=== PATIENT | male | born 1980 | race Caucasian/White ===

== ENCOUNTER 2017-10-28 14:15 | Emergency (ER) | payer MEDICARE, MEDICAID ==
[~2017-10-28] VITALS: Ht 180.3 cm; Wt 106.0 kg
[~2017-10-28 14:15] MED LIST: ARIP5TAB4 PO; CARB200T2 PO; DIVA-81 PO; DIVA500T9 PO; ESCI5TAB PO; GABA-532 PO; GEMF600T4 PO; LACO100T2 PO; LAMO25TA94 PO; LISI40TA4 PO; MIN5C PO; PANT-47 PO; SUMA50TA PO
[2017-10-28] MEDS ORDERED: normal saline 1000ML IV soln IVB ONE ×2 (14:20→15:00)
[2017-10-28] MEDS ORDERED: LORazepam 2 mg/ml vial IV ONE (14:20)
[2017-10-28 14:59] LABS: ALBUMIN 3.8 G/DL (3.4-5.0); ALKALINE PHOSPHATASE 109 IU/L (46-116); BILIRUBIN,TOTAL 0.6 MG/DL (0.1-1.0); BLOOD UREA NITROGEN 22 MG/DL (7-18); BUN/CREATININE RATIO 12.5 (5.4-32.0); CALCIUM 8.4 MG/DL (8.5-10.1); CARBAMAZEPINE (TEGRETOL) 1.6 UG/ML (4.0-12.0); CREATININE 1.76 MG/DL (0.60-1.10); ETHANOL < 0.010 GM/DL (0.0-0.010); TOTAL CARBON DIOXIDE 20.1 MMOL/L (24-32); VALPROATE 37 UG/ML (50-100); eGFR 43 ML/MIN
[2017-10-28] MEDS ORDERED: insulin regular, human 10 units/0.1 ml syringe IV ONE ×2 (15:00→15:45)
[2017-10-28 15:10] LABS: ALBUMIN/GLOBULIN RATIO 1.1 (1.1-1.5); POTASSIUM 3.9 MMOL/L (3.5-5.1); TOTAL PROTEIN 7.3 G/DL (6.4-8.2)
[2017-10-28 15:12] LABS: ANION GAP 15 (8-16); CHLORIDE 87 MMOL/L (99-107); SODIUM 122 MMOL/L (135-145)
[2017-10-28 15:13] LABS: BASOPHILS % (AUTO) 0.3 % (0-1); EOSINOPHILS % (AUTO) 0.8 % (0-6); GLUCOSE 758 MG/DL (70-104); HEMATOCRIT 38.1 % (42.0-52.0); HEMOGLOBIN 13.6 g/dl (14.0-17.9); MEAN CORPUSCULAR HEMOGLOBIN 32.4 PG (27.0-31.0); MEAN CORPUSCULAR HGB CONC 35.6 % (33.0-36.5); MEAN CORPUSCULAR VOLUME 90.8 FL (78-98); MEAN PLATELET VOLUME 11.4 FL (7.4-10.4); MONOCYTES # (AUTO) 0.3 X10'3 (0-0.9); MONOCYTES % (AUTO) 9.2 % (2-12); NEUTROPHILS % (AUTO) 60.7 % (42-75); PLATELET COUNT 184 X10'3 (140-440); WHITE BLOOD COUNT 3.3 X10'3 (4.5-11.0)
[2017-10-28 15:15] VITALS: BP 141/64
[2017-10-28 15:27] LABS: URINE AMPHETAMINE SCREEN NEGATIVE (Neg); URINE BARBITUATE SCREEN NEGATIVE (Neg); URINE BENZODIAZEPINES SCREEN NEGATIVE (Neg); URINE CANNABINOID SCREEN NEGATIVE (Neg); URINE COCAINE SCREEN NEGATIVE (Neg); URINE METHADONE SCREEN NEGATIVE (Neg); URINE OPIATE SCREEN NEGATIVE (Neg); URINE PHENCYCLIDINE SCREEN NEGATIVE (Neg)
[2017-10-28 15:47] LABS: ALANINE AMINOTRANSFERASE 22 U/L (12-78); ASPARTATE AMINO TRANSFERASE 15 U/L (10-37)
[2017-10-28] MEDS ORDERED: METF500T PO (16:49)
== END 2017-10-28 17:50 | disposition home or self-care (01) ==
LOC: ER 14:15
DX: G40.909 Epilepsy, unspecified, not intractable, without status epilepticus (principal); G89.29 Other chronic pain; E11.9 Type 2 diabetes mellitus without complications; F12.90 Cannabis use, unspecified, uncomplicated; Z90.49 Acquired absence of other specified parts of digestive tract; Z98.890 Other specified postprocedural states; Z88.8 Allergy status to other drugs, medicaments and biological substances; Z88.5 Allergy status to narcotic agent; Z79.84 Long term (current) use of oral hypoglycemic drugs; Z79.899 Other long term (current) drug therapy
CPT/HCPCS: 36415; 71045; 80053; 80156; 80164; 80305; 80320; 82948; 85025; 96374; 96375; 96376; 99285; J1815; J2060; J7030

== ENCOUNTER 2017-11-05 16:55 | Emergency (ER) | payer MEDICARE, MEDICAID ==
[~2017-11-05] VITALS: Ht 180.3 cm; Wt 106.8 kg
[~2017-11-05 16:55] MED LIST changes: +METF500T PO
[2017-11-05] MEDS ORDERED: normal saline 1000ML IV soln IVB ONE ×2 (17:30→18:20)
[2017-11-05] MEDS ORDERED: LORazepam 2 mg/ml vial IV ONE (17:30)
[2017-11-05 17:46] LABS: BASOPHILS % (AUTO) 0.1 % (0-1); EOSINOPHILS # (AUTO) 0.1 X10'3 (0-0.9); EOSINOPHILS % (AUTO) 1.7 % (0-6); HEMOGLOBIN 13.5 g/dl (14.0-17.9); LYMPHOCYTES # (AUTO) 1.1 X10'3 (1.1-4.8); MEAN CORPUSCULAR HEMOGLOBIN 32.7 PG (27.0-31.0); MEAN CORPUSCULAR HGB CONC 35.5 % (33.0-36.5); MEAN CORPUSCULAR VOLUME 92.1 FL (78-98); MONOCYTES # (AUTO) 0.3 X10'3 (0-0.9); MONOCYTES % (AUTO) 7.4 % (2-12); NEUTROPHILS # (AUTO) 3.2 X10'3 (1.8-7.7); NEUTROPHILS % (AUTO) 67.8 % (42-75); PLATELET COUNT 202 X10'3 (140-440); RED BLOOD COUNT 4.13 X10'6 (4.70-6.10); RED CELL DISTRIBUTION WIDTH 12.1 % (11.5-14.5); WHITE BLOOD COUNT 4.7 X10'3 (4.5-11.0)
[2017-11-05 18:02] LABS: ALBUMIN 3.9 G/DL (3.4-5.0); ALKALINE PHOSPHATASE 96 IU/L (46-116); ANION GAP 14 (8-16); BILIRUBIN,TOTAL 0.6 MG/DL (0.1-1.0); BLOOD UREA NITROGEN 26 MG/DL (7-18); BUN/CREATININE RATIO 12.1 (5.4-32.0); CALCIUM 8.6 MG/DL (8.5-10.1); CHLORIDE 88 MMOL/L (99-107); CREATININE 2.15 MG/DL (0.60-1.10); SODIUM 124 MMOL/L (135-145); TOTAL CARBON DIOXIDE 22.1 MMOL/L (24-32); TOTAL PROTEIN 7.9 G/DL (6.4-8.2); VALPROATE 9 UG/ML (50-100); eGFR 34 ML/MIN
[2017-11-05 18:07] LABS: LARGE PLATELETS FEW; PLATELET ESTIMATE NORMAL
[2017-11-05 18:15] LABS: ALANINE AMINOTRANSFERASE 39 U/L (12-78); ASPARTATE AMINO TRANSFERASE 24 U/L (10-37)
[2017-11-05 18:17] LABS: CREATINE KINASE 178 U/L (39-308)
[2017-11-05 18:34] LABS: GLUCOSE 647 MG/DL (70-104)
[2017-11-05] MEDS ORDERED: insulin regular, human 10 units/0.1 ml syringe IV ONE ×2 (18:40→19:10)
[2017-11-05] MEDS ORDERED: divalproex sodium 500mg tablet.DR PO STA (18:41)
[2017-11-05 19:26] LABS: ABG BASE EXCESS -9.4 mmol/L (-2.0-3.0); ABG HCO3 15.8 mmol/L (22.0-26.0); ABG OXYGEN SATURATION 95.8 % (95-98); ABG PCO2 (T) 32.7 mmHg (35.0-48.0); ABG PH (T) 7.303 (7.350-7.450); ALLEN'S TEST Positive; FCOHb 0.6 % (0.5-1.5); FMetHb 0.3 % (0.3-1.12); FO2Hb 94.9 % (94-100); PATIENT TEMPERATURE 37.1; RESPIRATORY RATE (OBSERVED) 16 b/min; TOTAL HEMOGLOBIN 12.3 G/dl (14.0-18.0)
[2017-11-05 20:24] VITALS: BP 128/68
== END 2017-11-05 20:29 | disposition home or self-care (01) ==
LOC: ER 16:55
DX: E86.0 Dehydration (principal); G40.909 Epilepsy, unspecified, not intractable, without status epilepticus; E11.65 Type 2 diabetes mellitus with hyperglycemia; E11.22 Type 2 diabetes mellitus with diabetic chronic kidney disease; N18.9 Chronic kidney disease, unspecified; F12.90 Cannabis use, unspecified, uncomplicated; G89.29 Other chronic pain; Z91.14 Patient's other noncompliance with medication regimen; Z90.49 Acquired absence of other specified parts of digestive tract; Z98.890 Other specified postprocedural states; Z79.899 Other long term (current) drug therapy; Z88.5 Allergy status to narcotic agent
CPT/HCPCS: 36415; 36600; 80053; 80164; 82550; 82803; 82948; 85018; 85025; 96361; 96374; 96375; 96376; 99284; J1815; J2060

== ENCOUNTER 2017-11-21 12:54 | Inpatient (IN) | payer MEDICARE, MEDICAID ==
[~2017-11-21] VITALS: Ht 180.3 cm; Wt 97.6 kg
[2017-11-21] MEDS ORDERED: ondansetron/PF 4mg/2ml inj IV ONE (13:10)
[2017-11-21] MEDS ORDERED: levetiracetam inj 1,000 MG in normal saline 100ml IV soln 90 ML IV ONE (13:20)
[2017-11-21] MEDS ORDERED: normal saline 1000ML IV soln IVB ONE (13:20)
[2017-11-21 13:33] LABS: HEMATOCRIT 39.5 % (42.0-52.0); HEMOGLOBIN 13.7 g/dl (14.0-17.9); MEAN CORPUSCULAR HEMOGLOBIN 32.6 PG (27.0-31.0); MEAN CORPUSCULAR HGB CONC 34.7 % (33.0-36.5); MEAN CORPUSCULAR VOLUME 93.9 FL (78-98); MEAN PLATELET VOLUME 10.4 FL (7.4-10.4); PLATELET COUNT 241 X10'3 (140-440); RED BLOOD COUNT 4.21 X10'6 (4.70-6.10); RED CELL DISTRIBUTION WIDTH 11.6 % (11.5-14.5); WHITE BLOOD COUNT 5.5 X10'3 (4.5-11.0)
[2017-11-21 13:51] LABS: BASOPHILS % (MANUAL) 1 % (0-1); LYMPHOCYTES % (MANUAL) 19 % (21-51); MONOCYTES % (MANUAL) 9 % (2-12); NEUTROPHILS % (MANUAL) 71 % (42-75); PLATELET ESTIMATE NORMAL; TOTAL CELLS COUNTED 100
[2017-11-21] MEDS ORDERED: normal saline 1000ml 1,000 ML IV ONE (14:55)
[2017-11-21 15:12] LABS: TOTAL CARBON DIOXIDE 17.9 MMOL/L (24-32)
[2017-11-21 15:29] LABS: ALANINE AMINOTRANSFERASE 28 U/L (12-78); ALBUMIN 3.6 G/DL (3.4-5.0); ALKALINE PHOSPHATASE 78 IU/L (46-116); ANION GAP 20 (8-16); ASPARTATE AMINO TRANSFERASE 11 U/L (10-37); BILIRUBIN,TOTAL 0.5 MG/DL (0.1-1.0); BLOOD UREA NITROGEN 37 MG/DL (7-18); BUN/CREATININE RATIO 14.6 (5.4-32.0); CALCIUM 8.2 MG/DL (8.5-10.1); CHLORIDE 93 MMOL/L (99-107); CREATININE 2.54 MG/DL (0.60-1.10); POTASSIUM 4.6 MMOL/L (3.5-5.1); SODIUM 131 MMOL/L (135-145); TOTAL PROTEIN 7.3 G/DL (6.4-8.2); VALPROATE 12 UG/ML (50-100); eGFR 28 ML/MIN
[2017-11-21 15:32] LABS: GLUCOSE 500 MG/DL (70-104)
[2017-11-21 16:57] LABS: CLARITY,URINE CLEAR (Clear); COLOR,URINE YELLOW (Yellow); GLUCOSE, URINE >=1000 mg/dl (Neg); KETONES,URINE 40 mg/dl (Neg); LEUKOCYTE ESTERASE ,URINE NEGATIVE (Neg); NITRITES, URINE NEGATIVE (Neg); OCCULT BLOOD,URINE NEGATIVE (Neg); PROTEIN,URINE NEGATIVE (Neg); UROBILINOGEN,URINE 0.2 E.U/dL (0.2-1.0)
[2017-11-21 16:58] LABS: UA COLLECTION TYPE CLN CATCH MIDSTREAM
[2017-11-21] MEDS ORDERED: insulin regular, human 10 units/0.1 ml syringe IV ONE (17:00)
[2017-11-21 17:04] LABS: BACTERIA,URINE NONE SEEN /HPF (Neg); MUCUS STRANDS NONE SEEN /LPF (Neg); RBC,URINE NONE SEEN /HPF (0-2); SQUAMOUS EPITHELIAL CELL,UR FEW /LPF (FEW); WBC,URINE NONE SEEN /HPF (0-4)
[2017-11-21 17:15] LABS: ABG HCO3 15.6 mmol/L (22.0-26.0); ABG OXYGEN SATURATION 95.7 % (95-98); ABG PCO2 (T) 37.5 mmHg (35.0-48.0); ABG PH (T) 7.238 (7.350-7.450); ABG PO2 (T) 84.2 mmHg (83-108); ALLEN'S TEST Positive; FCOHb 0.3 % (0.5-1.5); FMetHb 0.3 % (0.3-1.12); FO2Hb 95.1 % (94-100); TOTAL HEMOGLOBIN 12.1 G/dl (14.0-18.0)
[2017-11-21] MEDS ORDERED: sodium bicarbonate (8.4%) inj. 100 MEQ in dextrose 5% water 500ml 500 ML IV PRN (17:42)
[2017-11-21] MEDS ORDERED: insulin regular, DKA only 100 UNIT in normal saline 100ml IV soln 99 ML IV SCH ×2 (17:42)
[2017-11-21] MEDS ORDERED: sodium bicarbonate (8.4%) inj. 50 MEQ in dextrose 5% water 500ml 250 ML IV PRN (17:42)
[2017-11-21] MEDS ORDERED: Neutra Phos packet PO PRN (17:45)
[2017-11-21] MEDS ORDERED: sodium phosphate inj. 15 MMOL in dextrose 5%-water 150 ML IV PRN (17:45)
[2017-11-21] MEDS ORDERED: sodium phosphate inj. 30 MMOL in dextrose 5%-water 250 ML IV PRN (17:45)
[2017-11-21] MEDS ORDERED: potassium Cl 40MEQ/NS 500ml 500 ML IV PRN ×4 (17:45→18:10)
[2017-11-21] MEDS ORDERED: potassium Cl 20 mEq SR tablet PO PRN ×3 (17:45→18:10)
[2017-11-21] MEDS ORDERED: K and/or MAG REPLACEMENT MC ONE (17:45)
[2017-11-21] MEDS ORDERED: normal saline 1000ml 1,000 ML IV SCH (18:09)
[2017-11-21] MEDS ORDERED: mag hydrox/Alum hydrox/simeth 30ml oral suspension PO PRN (18:10)
[2017-11-21] MEDS ORDERED: magnesium 4gm in 100ml NS 100 ML IV PRN (18:10)
[2017-11-21] MEDS ORDERED: magnesium Cl slow-release 64mg tablet PO PRN (18:10)
[2017-11-21] MEDS ORDERED: acetaminophen 325mg tablet PO PRN (18:10)
[2017-11-21] MEDS ORDERED: HYDROcodone/acetaminophen 5mg/325mg tablet PO PRN (18:10)
[2017-11-21] MEDS ORDERED: dextrose 50%-water 50ml dispensing syringe IV PRN ×3 (18:10)
[2017-11-21] MEDS ORDERED: insulin regular, human inj. 100 UNITS in normal saline 100ml IV soln 100 ML IV SCH ×2 (18:10)
[2017-11-21] MEDS ORDERED: morphine 2 MG/ML inj. syringe IV PRN (18:10)
[2017-11-21] MEDS ORDERED: MESSAGE TO PHARMACY PO ONE (18:10)
[2017-11-21] MEDS ORDERED: docusate sod 100mg capsule PO PRN (18:10)
[2017-11-21] MEDS ORDERED: ondansetron/PF 4mg/2ml inj IV PRN (18:10)
[2017-11-21] MEDS ORDERED: magnesium 1gm/100ml D5W IVPB 100 ML IV PRN (18:10)
[2017-11-21] MEDS ORDERED: glucagon, human recombinant 1mg kit SUBCUT PRN (18:10)
[2017-11-21] MEDS ORDERED: dextrose ORAL solution 15 GM/59 ML bottle PO PRN ×2 (18:10)
[2017-11-21 18:30] LABS: LIPASE 231 U/L (73-393)
[2017-11-21] MEDS ORDERED: OMEP-50 PO (18:31)
[2017-11-21 19:55] VITALS: BP 121/71
[2017-11-21] MEDS: VIMPAT 100 MG PO SCH (20:00)
[2017-11-21] MEDS ORDERED: LACOSAMIDE 100 MG PO SCH (20:00)
[2017-11-21] MEDS: insulin glargine (Lantus) pen - multi-dose SQ SCH (20:50)
[2017-11-21] MEDS ORDERED: non-formulary drug (Divalproex ER* (Depakote ER*) 1 TAB) PO SCH (21:00)
[2017-11-21] MEDS ORDERED: temazepam 15mg capsule PO PRN (21:00)
[2017-11-21] MEDS: lamoTRIgine 25mg tablet PO SCH (21:17)
[2017-11-21] MEDS: carBAMazepine Ext. Release 200 MG TAB.ER.12H PO SCH (21:17)
[2017-11-21] MEDS: divalproex sod 250mg ER (24-hour) tablet PO SCH (21:18)
[2017-11-21] MEDS: pantoprazole 40mg Tablet.DR PO SCH (21:18)
[2017-11-21] MEDS: gabapentin 300mg capsule PO SCH (21:18)
[2017-11-21] MEDS: heparin, porcine 5000 units/ml vial SQ SCH (21:20)
[2017-11-21 22:00] VITALS: BP 90/43
[2017-11-21 22:03] LABS: ALBUMIN 3.1 G/DL (3.4-5.0); BLOOD UREA NITROGEN 29 MG/DL (7-18); BUN/CREATININE RATIO 16.1 (5.4-32.0); CALCIUM 7.5 MG/DL (8.5-10.1); MAGNESIUM 1.9 MG/DL (1.5-2.4); TOTAL CARBON DIOXIDE 21.7 MMOL/L (24-32); eGFR 42 ML/MIN
[2017-11-21 22:09] LABS: PHOSPHORUS 3.8 MG/DL (2.3-4.5)
[2017-11-21] MEDS: potassium CL 20mEq in D5-1/2NS 1,000 ML IV PRN ×2 (22:13→23:10)
[2017-11-21 22:29] LABS: GLUCOSE 202 MG/DL (70-104); POTASSIUM 3.4 MMOL/L (3.5-5.1); SODIUM 138 MMOL/L (135-145)
[2017-11-21 22:31] LABS: ANION GAP 18 (8-16); CHLORIDE 98 MMOL/L (99-107)
[2017-11-21] MEDS ORDERED: normal saline 1000ml 1,000 ML IVB ONE (22:47)
[2017-11-21] MEDS: potassium Cl 20 mEq SR tablet PO PRN (22:59)
[2017-11-22] MEDS: potassium CL 20mEq in D5-1/2NS 1,000 ML IV PRN (00:04)
[2017-11-22 01:18] LABS: ALBUMIN 2.9 G/DL (3.4-5.0); ANION GAP 13 (8-16); BLOOD UREA NITROGEN 26 MG/DL (7-18); BUN/CREATININE RATIO 16.4 (5.4-32.0); CALCIUM 7.3 MG/DL (8.5-10.1); CHLORIDE 104 MMOL/L (99-107); CREATININE 1.59 MG/DL (0.60-1.10); GLUCOSE 120 MG/DL (70-104); MAGNESIUM 1.9 MG/DL (1.5-2.4); POTASSIUM 3.5 MMOL/L (3.5-5.1); SODIUM 138 MMOL/L (135-145); TOTAL CARBON DIOXIDE 20.8 MMOL/L (24-32); eGFR 49 ML/MIN
[2017-11-22] MEDS: Potassium Cl inj 20 MEQ in DEXTROSE 10 % AND 0.45 % NACL 990 ML IV SCH ×2 (01:29→03:04)
[2017-11-22] MEDS: potassium Cl 20 mEq SR tablet PO PRN (03:00)
[2017-11-22 06:22] LABS: HEMATOCRIT 29.3 % (42.0-52.0); HEMOGLOBIN 10.7 g/dl (14.0-17.9); MEAN CORPUSCULAR HGB CONC 36.4 % (33.0-36.5); MEAN CORPUSCULAR VOLUME 90.7 FL (78-98); MEAN PLATELET VOLUME 10.5 FL (7.4-10.4); PLATELET COUNT 170 X10'3 (140-440); RED BLOOD COUNT 3.23 X10'6 (4.70-6.10); RED CELL DISTRIBUTION WIDTH 12.5 % (11.5-14.5); WHITE BLOOD COUNT 2.8 X10'3 (4.5-11.0)
[2017-11-22 07:00] VITALS: BP 101/66
[2017-11-22] MEDS ORDERED: divalproex sod 250mg ER (24-hour) tablet PO SCH (08:00)
[2017-11-22] MEDS ORDERED: non-formulary drug (Lisinopril* 10 MG) PO SCH (08:00)
[2017-11-22] MEDS: carBAMazepine Ext. Release 200 MG TAB.ER.12H PO SCH ×2 (08:00→20:51)
[2017-11-22] MEDS ORDERED: ESCITALOPRAM OXALATE 20 MG PO SCH (08:00)
[2017-11-22] MEDS: K and/or MAG REPLACEMENT MC SCH (08:00)
[2017-11-22] MEDS: VIMPAT 100 MG PO SCH ×2 (08:00→20:00)
[2017-11-22 08:07] LABS: TOTAL CELLS COUNTED 100
[2017-11-22 08:08] LABS: PLATELET ESTIMATE NORMAL
[2017-11-22] MEDS: insulin Lispro (HumaLOG) vial - multi-dose SQ SCH ×5 (08:50→20:55)
[2017-11-22] MEDS: lamoTRIgine 25mg tablet PO SCH ×2 (08:52→20:51)
[2017-11-22] MEDS: citalopram 20mg tablet PO SCH (08:52)
[2017-11-22] MEDS: pantoprazole 40mg Tablet.DR PO SCH ×2 (08:52→20:51)
[2017-11-22] MEDS: lisinopril 10 MG tablet PO SCH (08:52)
[2017-11-22] MEDS: gabapentin 300mg capsule PO SCH ×2 (08:52→20:51)
[2017-11-22] MEDS: heparin, porcine 5000 units/ml vial SQ SCH ×2 (08:56→20:51)
[2017-11-22 09:17] LABS: ALBUMIN 2.9 G/DL (3.4-5.0); ALBUMIN/GLOBULIN RATIO 0.9 (1.1-1.5); ALKALINE PHOSPHATASE 58 IU/L (46-116); ANION GAP 6 (8-16); BILIRUBIN,TOTAL 0.2 MG/DL (0.1-1.0); BLOOD UREA NITROGEN 21 MG/DL (7-18); BUN/CREATININE RATIO 14.6 (5.4-32.0); CALCIUM 7.5 MG/DL (8.5-10.1); CHLORIDE 106 MMOL/L (99-107); CHOL/HDL RATIO 8.4 (0.00-4.99); CHOLESTEROL 327 MG/DL (0-200); CREATININE 1.44 MG/DL (0.60-1.10); GLUCOSE 139 MG/DL (70-104); HDL CHOLESTEROL 39 MG/DL (35-60); LDL CHOLESTEROL 79 MG/DL (50-100); SODIUM 138 MMOL/L (135-145); TOTAL CARBON DIOXIDE 25.6 MMOL/L (24-32); eGFR 55 ML/MIN
[2017-11-22 09:30] LABS: POTASSIUM 3.8 MMOL/L (3.5-5.1)
[2017-11-22 09:48] LABS: ALANINE AMINOTRANSFERASE 32 U/L (12-78); ASPARTATE AMINO TRANSFERASE 14 U/L (10-37)
[2017-11-22 09:52] LABS: TRIGLYCERIDES 1733 MG/DL (20-135)
[2017-11-22 15:00] VITALS: BP_SYST 123; BP_SYST 144; BP_DIAS 49; BP_DIAS 82
[2017-11-22] MEDS ORDERED: LACO100T2 PO (17:22)
[2017-11-22 18:00] VITALS: BP 132/83
[2017-11-22] MEDS: divalproex sod 250mg ER (24-hour) tablet PO SCH (20:51)
[2017-11-22] MEDS: insulin glargine (Lantus) pen - multi-dose SQ SCH (20:55)
[2017-11-23 02:32] VITALS: BP 117/76
[2017-11-23 07:00] VITALS: BP 124/72
[2017-11-23 07:06] LABS: HEMATOCRIT 31.3 % (42.0-52.0); HEMOGLOBIN 11.3 g/dl (14.0-17.9); MEAN CORPUSCULAR VOLUME 91.3 FL (78-98); MEAN PLATELET VOLUME 10.5 FL (7.4-10.4); PLATELET COUNT 154 X10'3 (140-440); RED BLOOD COUNT 3.43 X10'6 (4.70-6.10); RED CELL DISTRIBUTION WIDTH 12.3 % (11.5-14.5); WHITE BLOOD COUNT 2.6 X10'3 (4.5-11.0)
[2017-11-23 07:30] LABS: PLATELET ESTIMATE NORMAL; TOTAL CELLS COUNTED 100
[2017-11-23] MEDS: VIMPAT 100 MG PO SCH ×2 (08:00→20:00)
[2017-11-23] MEDS: K and/or MAG REPLACEMENT MC SCH (08:00)
[2017-11-23 08:20] LABS: ALBUMIN/GLOBULIN RATIO 0.9 (1.1-1.5); ANION GAP 10 (8-16); BILIRUBIN,TOTAL 0.3 MG/DL (0.1-1.0); BLOOD UREA NITROGEN 17 MG/DL (7-18); BUN/CREATININE RATIO 14.2 (5.4-32.0); CALCIUM 8.2 MG/DL (8.5-10.1); CHLORIDE 102 MMOL/L (99-107); MAGNESIUM 1.8 MG/DL (1.5-2.4); SODIUM 136 MMOL/L (135-145); TOTAL CARBON DIOXIDE 23.6 MMOL/L (24-32); TOTAL PROTEIN 6.3 G/DL (6.4-8.2); eGFR 67 ML/MIN
[2017-11-23 08:25] LABS: GLUCOSE 300 MG/DL (70-104)
[2017-11-23 08:28] LABS: MEAN CORPUSCULAR HGB CONC 35.2 % (33.0-36.5)
[2017-11-23] MEDS ORDERED: fenofibrate 145mg tablet PO SCH (08:30)
[2017-11-23 08:36] LABS: POTASSIUM 4.1 MMOL/L (3.5-5.1)
[2017-11-23 08:37] LABS: ALANINE AMINOTRANSFERASE 65 U/L (12-78); ASPARTATE AMINO TRANSFERASE 36 U/L (10-37)
[2017-11-23 08:47] LABS: ALKALINE PHOSPHATASE 63 IU/L (46-116)
[2017-11-23] MEDS: insulin Lispro (HumaLOG) vial - multi-dose SQ SCH ×4 (09:17→19:12)
[2017-11-23] MEDS: pantoprazole 40mg Tablet.DR PO SCH ×2 (09:22→20:30)
[2017-11-23] MEDS: carBAMazepine Ext. Release 200 MG TAB.ER.12H PO SCH ×2 (09:22→20:30)
[2017-11-23] MEDS: lamoTRIgine 25mg tablet PO SCH ×2 (09:23→20:30)
[2017-11-23] MEDS: lisinopril 10 MG tablet PO SCH (09:23)
[2017-11-23] MEDS: citalopram 20mg tablet PO SCH (09:23)
[2017-11-23] MEDS: fenofibrate 145mg tablet PO SCH (09:24)
[2017-11-23] MEDS: gabapentin 300mg capsule PO SCH ×2 (09:24→20:30)
[2017-11-23] MEDS: heparin, porcine 5000 units/ml vial SQ SCH ×2 (09:26→20:31)
[2017-11-23] MEDS: divalproex sod 250mg ER (24-hour) tablet PO SCH ×2 (10:11→20:31)
[2017-11-23 11:00] VITALS: BP 148/97
[2017-11-23 13:31] LABS: TOTAL CARBON DIOXIDE 26.2 MMOL/L (24-32)
[2017-11-23 13:56] LABS: ALANINE AMINOTRANSFERASE 37 U/L (12-78); ALBUMIN 3.4 G/DL (3.4-5.0); ALBUMIN/GLOBULIN RATIO 0.9 (1.1-1.5); ALKALINE PHOSPHATASE 70 IU/L (46-116); ANION GAP 8 (8-16); ASPARTATE AMINO TRANSFERASE 19 U/L (10-37); BILIRUBIN,TOTAL 0.2 MG/DL (0.1-1.0); BLOOD UREA NITROGEN 17 MG/DL (7-18); CHLORIDE 102 MMOL/L (99-107); CREATININE 1.13 MG/DL (0.60-1.10); GLUCOSE 280 MG/DL (70-104); POTASSIUM 4.2 MMOL/L (3.5-5.1); SODIUM 136 MMOL/L (135-145); VALPROATE 37 UG/ML (50-100); eGFR 72 ML/MIN
[2017-11-23 15:00] VITALS: BP 136/88
[2017-11-23 18:50] VITALS: BP 147/92
[2017-11-23] MEDS ORDERED: divalproex sod 250mg ER (24-hour) tablet PO SCH (21:00)
[2017-11-23] MEDS: insulin glargine (Lantus) pen - multi-dose SQ SCH (21:32)
[2017-11-23 22:00] VITALS: BP 136/89
[2017-11-24 03:00] VITALS: BP 106/82
[2017-11-24 06:03] LABS: BASOPHILS % (AUTO) 0.2 % (0-1); EOSINOPHILS % (AUTO) 0.5 % (0-6); HEMATOCRIT 31.1 % (42.0-52.0); HEMOGLOBIN 11.3 g/dl (14.0-17.9); LYMPHOCYTES # (AUTO) 1.1 X10'3 (1.1-4.8); LYMPHOCYTES % (AUTO) 26.6 % (21-51); MEAN CORPUSCULAR VOLUME 91.2 FL (78-98); MEAN PLATELET VOLUME 10.6 FL (7.4-10.4); MONOCYTES # (AUTO) 0.4 X10'3 (0-0.9); MONOCYTES % (AUTO) 8.9 % (2-12); NEUTROPHILS # (AUTO) 2.5 X10'3 (1.8-7.7); NEUTROPHILS % (AUTO) 63.8 % (42-75); PLATELET COUNT 145 X10'3 (140-440); RED BLOOD COUNT 3.41 X10'6 (4.70-6.10); RED CELL DISTRIBUTION WIDTH 12.3 % (11.5-14.5)
[2017-11-24 06:22] LABS: ALBUMIN 3.1 G/DL (3.4-5.0); ALBUMIN/GLOBULIN RATIO 0.9 (1.1-1.5); ALKALINE PHOSPHATASE 64 IU/L (46-116); ANION GAP 10 (8-16); BILIRUBIN,TOTAL 0.3 MG/DL (0.1-1.0); BLOOD UREA NITROGEN 16 MG/DL (7-18); BUN/CREATININE RATIO 15.8 (5.4-32.0); CALCIUM 8.2 MG/DL (8.5-10.1); CHLORIDE 101 MMOL/L (99-107); CREATININE 1.01 MG/DL (0.60-1.10); MAGNESIUM 1.6 MG/DL (1.5-2.4); SODIUM 137 MMOL/L (135-145); TOTAL CARBON DIOXIDE 26.5 MMOL/L (24-32); TOTAL PROTEIN 6.7 G/DL (6.4-8.2); eGFR 82 ML/MIN
[2017-11-24 06:30] VITALS: BP 119/83
[2017-11-24 06:42] LABS: ALANINE AMINOTRANSFERASE 49 U/L (12-78); ASPARTATE AMINO TRANSFERASE 30 U/L (10-37)
[2017-11-24 06:47] LABS: GLUCOSE 209 MG/DL (70-104); POTASSIUM 3.5 MMOL/L (3.5-5.1)
[2017-11-24 07:12] LABS: MEAN CORPUSCULAR HEMOGLOBIN 32.4 PG (27.0-31.0); MEAN CORPUSCULAR HGB CONC 35.3 % (33.0-36.5)
[2017-11-24] MEDS: K and/or MAG REPLACEMENT MC SCH (07:26)
[2017-11-24] MEDS: fenofibrate 145mg tablet PO SCH (07:38)
[2017-11-24] MEDS: lisinopril 10 MG tablet PO SCH (07:38)
[2017-11-24] MEDS: carBAMazepine Ext. Release 200 MG TAB.ER.12H PO SCH (07:38)
[2017-11-24] MEDS: pantoprazole 40mg Tablet.DR PO SCH (07:38)
[2017-11-24] MEDS: gabapentin 300mg capsule PO SCH (07:39)
[2017-11-24] MEDS: divalproex sod 250mg ER (24-hour) tablet PO SCH (07:39)
[2017-11-24] MEDS: heparin, porcine 5000 units/ml vial SQ SCH (07:39)
[2017-11-24] MEDS: lamoTRIgine 25mg tablet PO SCH (07:39)
[2017-11-24] MEDS: VIMPAT 100 MG PO SCH (07:40)
[2017-11-24] MEDS: insulin Lispro (HumaLOG) vial - multi-dose SQ SCH ×3 (07:41→12:26)
[2017-11-24] MEDS: citalopram 20mg tablet PO SCH (07:41)
[2017-11-24] MEDS ORDERED: FENO145T25 PO (10:16)
[2017-11-24] MEDS ORDERED: LANTUS SQ (10:16)
[2017-11-24] MEDS ORDERED: INSU100V11 SQ (10:16)
[2017-11-24 11:30] VITALS: BP 148/88
== END 2017-11-24 13:20 | disposition home or self-care (01) | DRG 100 ==
LOC: ER 12:55 → ED HOLD 18:09 → PCU 3S 19:57
PROVIDERS: ADMIT Internal Medicine; ATTEND Internal Medicine
DX: G40.909 Epilepsy, unspecified, not intractable, without status epilepticus (principal); E11.10 Type 2 diabetes mellitus with ketoacidosis without coma; N17.9 Acute kidney failure, unspecified; E78.1 Pure hyperglyceridemia; E78.5 Hyperlipidemia, unspecified; E86.0 Dehydration; F99 Mental disorder, not otherwise specified; F41.9 Anxiety disorder, unspecified; G47.33 Obstructive sleep apnea (adult) (pediatric); F12.90 Cannabis use, unspecified, uncomplicated; F32.9 Major depressive disorder, single episode, unspecified; G89.29 Other chronic pain; Z90.49 Acquired absence of other specified parts of digestive tract; Z88.6 Allergy status to analgesic agent; Z88.8 Allergy status to other drugs, medicaments and biological substances; Z79.4 Long term (current) use of insulin; Z79.899 Other long term (current) drug therapy; Z87.891 Personal history of nicotine dependence
CPT/HCPCS: 36415; 36600; 71045; 80048; 80053; 80061; 80156; 80164; 81001; 82803; 82948; 83036; 83690; 83735; 84100; 85018; 85025; 87070; 93005; 96361; 96365; 96375; 99291; J1644; J1815; J1953; J2405; J3480; J7030

== ENCOUNTER 2018-05-03 22:17 | Emergency (ER) | payer MEDICARE, MEDICAID ==
[~2018-05-03] VITALS: Ht 180.3 cm; Wt 104.5 kg
[~2018-05-03 22:17] MED LIST changes: -ARIP5TAB4 PO; +FENO145T25 PO; -GEMF600T4 PO; +INSU100V11 SQ; +LANTUS SQ; -METF500T PO; +OMEP-50 PO; -PANT-47 PO
[2018-05-03] MEDS ORDERED: LORazepam 2 mg/ml vial IV ONE (22:25)
[2018-05-03] MEDS ORDERED: normal saline 1000ML IV soln IVB ONE (22:25)
[2018-05-03 22:46] LABS: CLARITY,URINE CLEAR (Clear); COLOR,URINE YELLOW (Yellow); GLUCOSE, URINE NEGATIVE (Neg); KETONES,URINE NEGATIVE (Neg); LEUKOCYTE ESTERASE ,URINE NEGATIVE (Neg); NITRITES, URINE NEGATIVE (Neg); OCCULT BLOOD,URINE NEGATIVE (Neg); PROTEIN,URINE NEGATIVE (Neg); UROBILINOGEN,URINE 0.2 E.U/dL (0.2-1.0)
[2018-05-03 22:48] LABS: BASOPHILS % (AUTO) 0.6 % (0-1); EOSINOPHILS # (AUTO) 0.1 X10'3 (0-0.9); EOSINOPHILS % (AUTO) 0.9 % (0-6); HEMATOCRIT 40.7 % (42.0-52.0); HEMOGLOBIN 14.1 g/dl (14.0-17.9); LYMPHOCYTES # (AUTO) 1.8 X10'3 (1.1-4.8); MEAN CORPUSCULAR HGB CONC 34.6 g/dL (33.0-36.5); MEAN CORPUSCULAR VOLUME 92.6 FL (78-98); MONOCYTES # (AUTO) 0.5 X10'3 (0-0.9); MONOCYTES % (AUTO) 8.5 % (2-12); NEUTROPHILS # (AUTO) 3.5 X10'3 (1.8-7.7); PLATELET COUNT 229 X10'3 (140-440); RED CELL DISTRIBUTION WIDTH 13.4 % (11.5-14.5); WHITE BLOOD COUNT 5.9 X10'3 (4.5-11.0)
[2018-05-03 22:52] LABS: UA COLLECTION TYPE CLN CATCH MIDSTREAM
[2018-05-03 22:55] LABS: URINE AMPHETAMINE SCREEN NEGATIVE (Neg); URINE BARBITUATE SCREEN NEGATIVE (Neg); URINE BENZODIAZEPINES SCREEN NEGATIVE (Neg); URINE CANNABINOID SCREEN NEGATIVE (Neg); URINE COCAINE SCREEN NEGATIVE (Neg); URINE METHADONE SCREEN NEGATIVE (Neg); URINE OPIATE SCREEN NEGATIVE (Neg); URINE PHENCYCLIDINE SCREEN NEGATIVE (Neg)
[2018-05-03 22:58] LABS: ALANINE AMINOTRANSFERASE 23 U/L (12-78); ALKALINE PHOSPHATASE 83 IU/L (46-116); ANION GAP 10 (8-16); ASPARTATE AMINO TRANSFERASE 16 U/L (10-37); BILIRUBIN,TOTAL 0.3 MG/DL (0.1-1.0); BLOOD UREA NITROGEN 11 MG/DL (7-18); BUN/CREATININE RATIO 11.5 (5.4-32.0); CALCIUM 8.9 MG/DL (8.5-10.1); CHLORIDE 105 MMOL/L (99-107); CREATININE 0.96 MG/DL (0.60-1.10); GLUCOSE 133 MG/DL (70-104); POTASSIUM 4.4 MMOL/L (3.5-5.1); SODIUM 144 MMOL/L (135-145); TOTAL CARBON DIOXIDE 29.4 MMOL/L (24-32); TOTAL PROTEIN 7.9 G/DL (6.4-8.2); eGFR 87 ML/MIN
[2018-05-03 22:59] LABS: CREATINE KINASE 354 U/L (39-308)
[2018-05-03 23:06] LABS: ETHANOL < 0.010 GM/DL (0.0-0.010); VALPROATE 23 UG/ML (50-100)
[2018-05-03] MEDS ORDERED: divalproex sodium 250mg tablet PO ONE (23:15)
[2018-05-03 23:46] VITALS: BP 181/100
== END 2018-05-03 23:53 | disposition home or self-care (01) ==
LOC: ER 22:17
DX: G40.909 Epilepsy, unspecified, not intractable, without status epilepticus (principal); E11.9 Type 2 diabetes mellitus without complications; G89.29 Other chronic pain; F12.90 Cannabis use, unspecified, uncomplicated; Z90.49 Acquired absence of other specified parts of digestive tract; Z98.890 Other specified postprocedural states; Z88.5 Allergy status to narcotic agent; Z88.8 Allergy status to other drugs, medicaments and biological substances; Z79.4 Long term (current) use of insulin; Z79.899 Other long term (current) drug therapy
CPT/HCPCS: 36415; 80053; 80164; 80305; 80320; 81003; 82550; 85025; 93005; 96374; 99284; J2060; J7030

== ENCOUNTER 2018-05-22 18:59 | Emergency (ER) | payer MEDICARE, MEDICAID ==
[~2018-05-22] VITALS: Ht 180.3 cm; Wt 104.5 kg
--- NOTE | 2018-05-22 19:34 | NUR ---
PT NOW COMPLAINING OF INTERMITTENT CHEST PAIN
[2018-05-22 20:58] LABS: ALANINE AMINOTRANSFERASE 20 U/L (12-78); ALBUMIN/GLOBULIN RATIO 1.1 (1.1-1.5); ALKALINE PHOSPHATASE 83 IU/L (46-116); ANION GAP 11 (8-16); ASPARTATE AMINO TRANSFERASE 12 U/L (10-37); BILIRUBIN,TOTAL 0.3 MG/DL (0.1-1.0); BLOOD UREA NITROGEN 15 MG/DL (7-18); CALCIUM 9.3 MG/DL (8.5-10.1); CHLORIDE 101 MMOL/L (99-107); CREATININE 0.94 MG/DL (0.60-1.10); GLUCOSE 168 MG/DL (70-104); POTASSIUM 3.7 MMOL/L (3.5-5.1); SODIUM 139 MMOL/L (135-145); TOTAL CARBON DIOXIDE 27.1 MMOL/L (24-32); TOTAL PROTEIN 7.8 G/DL (6.4-8.2); eGFR 89 ML/MIN
[2018-05-22 21:06] LABS: INR 1.1 INR; PARTIAL THROMBOPLASTIN TIME 28 SECONDS (22-32); PROTHROMBIN TIME 10.9 SECONDS (9.0-12.0)
[2018-05-22 21:07] LABS: BASOPHILS % (AUTO) 0.5 % (0-1); EOSINOPHILS % (AUTO) 1.1 % (0-6); LYMPHOCYTES # (AUTO) 1.4 X10'3 (1.1-4.8); LYMPHOCYTES % (AUTO) 40.2 % (21-51); MEAN CORPUSCULAR HEMOGLOBIN 32.6 PG (27.0-31.0); MEAN CORPUSCULAR HGB CONC 35.1 g/dL (33.0-36.5); MEAN CORPUSCULAR VOLUME 92.7 FL (78-98); MEAN PLATELET VOLUME 10.2 FL (7.4-10.4); MONOCYTES # (AUTO) 0.3 X10'3 (0-0.9); MONOCYTES % (AUTO) 9.2 % (2-12); NEUTROPHILS # (AUTO) 1.7 X10'3 (1.8-7.7); PLATELET COUNT 191 X10'3 (140-440); RED BLOOD COUNT 3.99 X10'6 (4.70-6.10); WHITE BLOOD COUNT 3.4 X10'3 (4.5-11.0)
[2018-05-22 21:45] LABS: VALPROATE 49 UG/ML (50-100)
[2018-05-22 23:02] VITALS: BP 112/71
== END 2018-05-22 23:06 | disposition home or self-care (01) ==
LOC: ER 19:00
DX: G40.909 Epilepsy, unspecified, not intractable, without status epilepticus (principal); E11.65 Type 2 diabetes mellitus with hyperglycemia; G89.29 Other chronic pain; F12.90 Cannabis use, unspecified, uncomplicated; Z90.49 Acquired absence of other specified parts of digestive tract; Z87.891 Personal history of nicotine dependence; Z88.8 Allergy status to other drugs, medicaments and biological substances; Z79.4 Long term (current) use of insulin
CPT/HCPCS: 36415; 71045; 80053; 80164; 84484; 85025; 85610; 85730; 93005; 99284

== ENCOUNTER 2018-12-22 11:36 | Emergency (ER) | payer MEDICARE, MEDICAID ==
[~2018-12-22] VITALS: Ht 180.3 cm; Wt 105.9 kg
[2018-12-22] MEDS ORDERED: normal saline 1000ML IV soln IVB ONE (11:50)
[2018-12-22] MEDS ORDERED: LORazepam 2 mg/ml vial IV ONE ×2 (11:50→13:55)
[2018-12-22 12:02] LABS: BASOPHILS % (AUTO) 0.9 % (0-1); HEMATOCRIT 36.9 % (42.0-52.0); LYMPHOCYTES # (AUTO) 1.5 X10'3 (1.1-4.8); LYMPHOCYTES % (AUTO) 44.8 % (21-51); MEAN CORPUSCULAR HEMOGLOBIN 32.5 PG (27.0-31.0); MEAN CORPUSCULAR HGB CONC 35.2 g/dL (33.0-36.5); MEAN CORPUSCULAR VOLUME 92.2 FL (78-98); MEAN PLATELET VOLUME 9.6 FL (7.4-10.4); MONOCYTES # (AUTO) 0.2 X10'3 (0-0.9); MONOCYTES % (AUTO) 7.2 % (2-12); NEUTROPHILS # (AUTO) 1.6 X10'3 (1.8-7.7); NEUTROPHILS % (AUTO) 46.1 % (42-75); PLATELET COUNT 188 X10'3 (140-440); RED CELL DISTRIBUTION WIDTH 12.8 % (11.5-14.5); WHITE BLOOD COUNT 3.4 X10'3 (4.5-11.0)
[2018-12-22] MEDS ORDERED: ondansetron/PF 4mg/2ml inj IV ONE (12:10)
[2018-12-22 12:32] LABS: ANION GAP 14 (8-16); BLOOD UREA NITROGEN 16 MG/DL (7-18); BUN/CREATININE RATIO 15.2 (5.4-32.0); CHLORIDE 103 MMOL/L (99-107); CREATININE 1.05 MG/DL (0.60-1.10); GLUCOSE 210 MG/DL (70-104); POTASSIUM 4.3 MMOL/L (3.5-5.1); SODIUM 141 MMOL/L (135-145); TOTAL CARBON DIOXIDE 24.5 MMOL/L (24-32)
[2018-12-22 12:33] LABS: ALANINE AMINOTRANSFERASE 21 U/L (12-78); ALBUMIN 3.9 G/DL (3.4-5.0); ALBUMIN/GLOBULIN RATIO 0.9 (1.1-1.5); ALKALINE PHOSPHATASE 101 IU/L (46-116); ASPARTATE AMINO TRANSFERASE 11 U/L (10-37); BILIRUBIN,TOTAL 0.3 MG/DL (0.1-1.0); CALCIUM 8.9 MG/DL (8.5-10.1); MAGNESIUM 1.7 MG/DL (1.5-2.4); PHOSPHORUS 3.5 MG/DL (2.3-4.5); TOTAL PROTEIN 8.4 G/DL (6.4-8.2); eGFR 78 ML/MIN
--- NOTE | 2018-12-22 12:53 | NUR ---
Pt's nickolas reports the patient had another seizure while no staff were in the room. The seizure lasted approximately 2 minutes per her report. Upon this nurse entering the room, pt is awake but sleepy. Pt answers questions appropriately.
--- NOTE | 2018-12-22 13:22 | NUR ---
Pt's significant other reports the patient had another seizure. Pt's electronic device monitor did not show any signs of tremors or seizure activity. Pt is fully alert and talking with staff upon entering the room right after the reported seizure.
--- NOTE | 2018-12-22 13:42 | NUR ---
Pt's fiance reports "he just had another one." Dr. Garcia at the bedside to observe a "seizure". Pt is responding to questions from the doctor during the "seizure" activity.
--- NOTE | 2018-12-22 14:02 | NUR ---
Medicated as ordered with additional ativan 0.5mg IV.
[2018-12-22 14:10] LABS: VALPROATE 130 UG/ML (50-100)
[2018-12-22 14:32] VITALS: BP 114/76
== END 2018-12-22 14:45 | disposition home or self-care (01) ==
LOC: ER 11:36
DX: G40.89 Other seizures (principal); E11.9 Type 2 diabetes mellitus without complications; G89.29 Other chronic pain; F41.9 Anxiety disorder, unspecified; F12.90 Cannabis use, unspecified, uncomplicated; Z90.49 Acquired absence of other specified parts of digestive tract; Z98.890 Other specified postprocedural states; Z88.8 Allergy status to other drugs, medicaments and biological substances; Z79.4 Long term (current) use of insulin; Z79.899 Other long term (current) drug therapy
CPT/HCPCS: 36415; 70450; 72125; 80053; 80164; 83735; 84100; 84484; 85025; 93005; 96361; 96374; 96375; 96376; 99284; J2060; J2405; J7030

== ENCOUNTER 2018-12-29 09:33 | Outpatient (CLI) | payer MEDICARE, MEDICAID | END 2018-12-29 23:59 | disposition home or self-care (01) | LOC: RAD 09:33 | PROVIDERS: ATTEND Psychiatry & Neurology Neurology | DX: G40.909 Epilepsy, unspecified, not intractable, without status epilepticus (principal); R94.01 Abnormal electroencephalogram [EEG] | CPT/HCPCS: 95816 ==

== ENCOUNTER 2019-01-07 02:42 | Emergency (ER) | payer MEDICARE, MEDICAID ==
[~2019-01-07] VITALS: Ht 180.3 cm; Wt 106.0 kg
[2019-01-07] MEDS ORDERED: normal saline 1000ML IV soln IVB ONE (02:50)
[2019-01-07] MEDS ORDERED: LORazepam 2 mg/ml vial IV ONE (02:50)
--- NOTE | 2019-01-07 02:59 | NUR ---
PT CLOSED EYES AND STARTED TO SHAKE WHILE TRYING TO DRAW BLOOD, BUT PT WAS ABLE TO ANSWER ALL QUESTIONS APPROPRIATELY WHILE SHAKING. SHAKING LASTED ABOUT 10 SECONDS. PT HAD NO POST-ICTAL STATE, A&OX4 SOON SHAKING CEASED. JEAN CLARK AWARE OF SCENARIO
--- NOTE | 2019-01-07 03:03 | NUR ---
JEAN CLARK ORDERED TO HOLD ATIVAN AT THIS TIME
[2019-01-07 03:11] LABS: BASOPHILS % (AUTO) 0.7 % (0-1); EOSINOPHILS % (AUTO) 0.8 % (0-6); HEMATOCRIT 36.7 % (42.0-52.0); HEMOGLOBIN 13.4 g/dl (14.0-17.9); LYMPHOCYTES # (AUTO) 1.7 X10'3 (1.1-4.8); MEAN CORPUSCULAR HGB CONC 36.4 g/dL (33.0-36.5); MEAN CORPUSCULAR VOLUME 93.4 FL (78-98); MEAN PLATELET VOLUME 10.1 FL (7.4-10.4); MONOCYTES # (AUTO) 0.3 X10'3 (0-0.9); MONOCYTES % (AUTO) 8.3 % (2-12); NEUTROPHILS # (AUTO) 1.4 X10'3 (1.8-7.7); NEUTROPHILS % (AUTO) 41.2 % (42-75); PLATELET COUNT 156 X10'3 (140-440); RED BLOOD COUNT 3.93 X10'6 (4.70-6.10); WHITE BLOOD COUNT 3.4 X10'3 (4.5-11.0)
[2019-01-07 03:59] LABS: ALANINE AMINOTRANSFERASE 13 U/L (12-78); ALKALINE PHOSPHATASE 100 IU/L (46-116); ANION GAP 12 (8-16); ASPARTATE AMINO TRANSFERASE 11 U/L (10-37); BILIRUBIN,TOTAL 0.3 MG/DL (0.1-1.0); BLOOD UREA NITROGEN 15 MG/DL (7-18); BUN/CREATININE RATIO 12.6 (5.4-32.0); CALCIUM 9.1 MG/DL (8.5-10.1); CHLORIDE 96 MMOL/L (99-107); CREATININE 1.19 MG/DL (0.60-1.10); GLUCOSE 400 MG/DL (70-104); PLATELET ESTIMATE NORMAL; POTASSIUM 4.2 MMOL/L (3.5-5.1); SODIUM 134 MMOL/L (135-145); TOTAL PROTEIN 8.2 G/DL (6.4-8.2); eGFR 68 ML/MIN
[2019-01-07 04:00] LABS: ROULEAUX 1+; TEAR DROP CELLS 1+
[2019-01-07] MEDS ORDERED: potassium Cl 20 mEq SR tablet PO STA ×2 (04:02→05:20)
[2019-01-07 04:04] LABS: MAGNESIUM 1.7 MG/DL (1.5-2.4)
[2019-01-07] MEDS ORDERED: insulin regular, human 10 units/0.1 ml syringe IV ONE ×2 (04:05→05:20)
[2019-01-07 05:59] VITALS: BP 150/91
== END 2019-01-07 06:05 | disposition home or self-care (01) ==
LOC: ER 02:43
DX: E11.65 Type 2 diabetes mellitus with hyperglycemia (principal); G40.909 Epilepsy, unspecified, not intractable, without status epilepticus; R07.89 Other chest pain; G89.29 Other chronic pain; F41.9 Anxiety disorder, unspecified; I10 Essential (primary) hypertension; F12.90 Cannabis use, unspecified, uncomplicated; Z90.49 Acquired absence of other specified parts of digestive tract; Z98.890 Other specified postprocedural states; Z88.8 Allergy status to other drugs, medicaments and biological substances; Z88.6 Allergy status to analgesic agent; Z88.5 Allergy status to narcotic agent; Z79.4 Long term (current) use of insulin; Z79.899 Other long term (current) drug therapy
CPT/HCPCS: 36415; 71045; 80053; 82948; 83735; 84484; 85025; 93005; 96361; 96374; 96376; 99284; J1815; J7030

== ENCOUNTER 2019-01-13 15:42 | Emergency (ER) | payer MEDICARE, MEDICAID ==
[~2019-01-13] VITALS: Ht 182.9 cm; Wt 106.0 kg
[2019-01-13] MEDS ORDERED: ondansetron/PF 4mg/2ml inj IV ONE (17:05)
[2019-01-13] MEDS ORDERED: famotidine/PF 10 mg/ml inj IV ONE (17:45)
[2019-01-13 18:02] LABS: BASOPHILS % (AUTO) 0.2 % (0-1); EOSINOPHILS % (AUTO) 0.3 % (0-6); HEMATOCRIT 38.6 % (42.0-52.0); HEMOGLOBIN 13.4 g/dl (14.0-17.9); LYMPHOCYTES # (AUTO) 1.1 X10'3 (1.1-4.8); LYMPHOCYTES % (AUTO) 21.9 % (21-51); MEAN CORPUSCULAR HEMOGLOBIN 32.5 PG (27.0-31.0); MEAN CORPUSCULAR HGB CONC 34.7 g/dL (33.0-36.5); MEAN CORPUSCULAR VOLUME 93.6 FL (78-98); MONOCYTES # (AUTO) 0.4 X10'3 (0-0.9); NEUTROPHILS # (AUTO) 3.7 X10'3 (1.8-7.7); NEUTROPHILS % (AUTO) 70.6 % (42-75); PLATELET COUNT 218 X10'3 (140-440); RED BLOOD COUNT 4.13 X10'6 (4.70-6.10); RED CELL DISTRIBUTION WIDTH 12.9 % (11.5-14.5); WHITE BLOOD COUNT 5.2 X10'3 (4.5-11.0)
[2019-01-13 18:24] LABS: PARTIAL THROMBOPLASTIN TIME 26 SECONDS (22-32)
[2019-01-13 18:25] LABS: ALANINE AMINOTRANSFERASE 16 U/L (12-78); ALBUMIN 4.3 G/DL (3.4-5.0); ALBUMIN/GLOBULIN RATIO 0.9 (1.1-1.5); ALKALINE PHOSPHATASE 93 IU/L (46-116); ANION GAP 11 (8-16); ASPARTATE AMINO TRANSFERASE 18 U/L (10-37); BILIRUBIN,TOTAL 0.4 MG/DL (0.1-1.0); BLOOD UREA NITROGEN 11 MG/DL (7-18); BUN/CREATININE RATIO 12.4 (5.4-32.0); CALCIUM 9.7 MG/DL (8.5-10.1); CHLORIDE 102 MMOL/L (99-107); CREATININE 0.89 MG/DL (0.60-1.10); GLUCOSE 152 MG/DL (70-104); LIPASE 181 U/L (73-393); POTASSIUM 4.8 MMOL/L (3.5-5.1); SODIUM 140 MMOL/L (135-145); TOTAL CARBON DIOXIDE 26.7 MMOL/L (24-32); TOTAL PROTEIN 8.9 G/DL (6.4-8.2); eGFR > 90 ML/MIN
[2019-01-13] MEDS ORDERED: ONDA4TAB12 PO (19:17)
[2019-01-13 19:18] VITALS: BP 126/75
== END 2019-01-13 19:28 | disposition home or self-care (01) ==
LOC: ER 15:43
DX: K52.9 Noninfective gastroenteritis and colitis, unspecified (principal); R10.13 Epigastric pain; T38.3X5A Adverse effect of insulin and oral hypoglycemic [antidiabetic] drugs, initial encounter; G40.909 Epilepsy, unspecified, not intractable, without status epilepticus; I10 Essential (primary) hypertension; E11.9 Type 2 diabetes mellitus without complications; G89.29 Other chronic pain; F41.9 Anxiety disorder, unspecified; F12.90 Cannabis use, unspecified, uncomplicated; Z79.899 Other long term (current) drug therapy; Z88.4 Allergy status to anesthetic agent; Z88.8 Allergy status to other drugs, medicaments and biological substances; Z88.6 Allergy status to analgesic agent; Z79.4 Long term (current) use of insulin; Z90.49 Acquired absence of other specified parts of digestive tract; Z98.890 Other specified postprocedural states; Y92.89 Other specified places as the place of occurrence of the external cause
CPT/HCPCS: 36415; 71045; 80053; 83690; 84484; 85025; 85610; 85730; 93005; 96374; 96375; 99284; J2405; J3490

== ENCOUNTER 2019-01-15 13:38 | Emergency (ER) | payer MEDICARE, MEDICAID ==
[~2019-01-15] VITALS: Ht 180.3 cm; Wt 101.5 kg
[~2019-01-15 13:38] MED LIST changes: +ONDA4TAB12 PO
[2019-01-15] MEDS ORDERED: GABA-532 PO (15:05)
[2019-01-15] MEDS ORDERED: PANT-47 PO (15:05)
[2019-01-15] MEDS ORDERED: PRAZ5CAP PO (15:05)
[2019-01-15] MEDS ORDERED: PRAM0.253 PO (15:05)
[2019-01-15] MEDS ORDERED: ACET650T11 PO (15:05)
[2019-01-15] MEDS ORDERED: PROP20TA6 PO (15:05)
[2019-01-15] MEDS ORDERED: GEMF600T89 PO (15:05)
[2019-01-15] MEDS ORDERED: ibuprofen PO (15:05)
[2019-01-15 16:26] LABS: BASOPHILS % (AUTO) 0.4 % (0-1); EOSINOPHILS % (AUTO) 0.2 % (0-6); HEMATOCRIT 39.2 % (42.0-52.0); HEMOGLOBIN 13.7 g/dl (14.0-17.9); LYMPHOCYTES # (AUTO) 1.3 X10'3 (1.1-4.8); LYMPHOCYTES % (AUTO) 36.1 % (21-51); MEAN CORPUSCULAR HEMOGLOBIN 32.7 PG (27.0-31.0); MEAN CORPUSCULAR VOLUME 93.4 FL (78-98); MEAN PLATELET VOLUME 9.9 FL (7.4-10.4); MONOCYTES # (AUTO) 0.3 X10'3 (0-0.9); MONOCYTES % (AUTO) 8.1 % (2-12); NEUTROPHILS # (AUTO) 1.9 X10'3 (1.8-7.7); NEUTROPHILS % (AUTO) 55.2 % (42-75); PLATELET COUNT 211 X10'3 (140-440); RED CELL DISTRIBUTION WIDTH 12.7 % (11.5-14.5); WHITE BLOOD COUNT 3.5 X10'3 (4.5-11.0)
[2019-01-15 16:46] LABS: ALANINE AMINOTRANSFERASE 19 U/L (12-78); ALBUMIN 4.4 G/DL (3.4-5.0); ALKALINE PHOSPHATASE 88 IU/L (46-116); ANION GAP 10 (8-16); ASPARTATE AMINO TRANSFERASE 18 U/L (10-37); BILIRUBIN,TOTAL 0.4 MG/DL (0.1-1.0); BLOOD UREA NITROGEN 17 MG/DL (7-18); CALCIUM 9.5 MG/DL (8.5-10.1); CHLORIDE 105 MMOL/L (99-107); GLUCOSE 124 MG/DL (70-104); POTASSIUM 4.3 MMOL/L (3.5-5.1); SODIUM 142 MMOL/L (135-145); TOTAL CARBON DIOXIDE 26.6 MMOL/L (24-32); TOTAL PROTEIN 8.8 G/DL (6.4-8.2); eGFR 83 ML/MIN
[2019-01-15 16:50] LABS: CARBAMAZEPINE (TEGRETOL) 4.2 UG/ML (4.0-12.0); VALPROATE 59 UG/ML (50-100)
[2019-01-15 17:28] VITALS: BP 127/78
== END 2019-01-15 17:39 | disposition home or self-care (01) ==
LOC: ER 13:39
DX: R56.9 Unspecified convulsions (principal); I10 Essential (primary) hypertension; E11.9 Type 2 diabetes mellitus without complications; G89.29 Other chronic pain; F12.90 Cannabis use, unspecified, uncomplicated; Z90.49 Acquired absence of other specified parts of digestive tract; Z98.890 Other specified postprocedural states; Z88.8 Allergy status to other drugs, medicaments and biological substances; Z88.5 Allergy status to narcotic agent; Z88.6 Allergy status to analgesic agent; Z79.4 Long term (current) use of insulin
CPT/HCPCS: 36415; 71045; 80053; 80156; 80164; 85025; 93005; 99284

== ENCOUNTER 2019-02-19 13:08 | Emergency (ER) | payer MEDICARE, MEDICAID ==
[~2019-02-19] VITALS: Ht 180.3 cm; Wt 101.0 kg
[~2019-02-19 13:08] MED LIST changes: +ACET650T11 PO; +GEMF600T89 PO; +PANT-47 PO; +PRAM0.253 PO; +PRAZ5CAP PO; +PROP20TA6 PO; +ibuprofen PO
[2019-02-19] MEDS ORDERED: normal saline 1000ML IV soln IV ONE (13:30)
[2019-02-19] MEDS ORDERED: LORazepam 2 mg/ml vial IV ONE (13:30)
[2019-02-19 14:05] LABS: BASOPHILS % (AUTO) 0.6 % (0-1); EOSINOPHILS % (AUTO) 0.6 % (0-6); HEMATOCRIT 38.6 % (42.0-52.0); LYMPHOCYTES # (AUTO) 1.1 X10'3 (1.1-4.8); LYMPHOCYTES % (AUTO) 24.9 % (21-51); MEAN CORPUSCULAR HEMOGLOBIN 33.7 PG (27.0-31.0); MEAN CORPUSCULAR VOLUME 92.9 FL (78-98); MEAN PLATELET VOLUME 9.2 FL (7.4-10.4); MONOCYTES # (AUTO) 0.4 X10'3 (0-0.9); MONOCYTES % (AUTO) 8.9 % (2-12); NEUTROPHILS # (AUTO) 2.9 X10'3 (1.8-7.7); PLATELET COUNT 194 X10'3 (140-440); RED BLOOD COUNT 4.16 X10'6 (4.70-6.10); RED CELL DISTRIBUTION WIDTH 12.9 % (11.5-14.5); WHITE BLOOD COUNT 4.4 X10'3 (4.5-11.0)
--- NOTE | 2019-02-19 14:09 | NUR ---
ASSISTING RN WITH PT CARE, 1ST LITER NS INFUSING W/O
--- NOTE | 2019-02-19 14:16 | NUR ---
DR PENA AT BEDSIDE, PT C/O HIGH BLOOD SUGAR X4-5 DAYS FROM 200S TO "HIGH", PT DOES HAVE APPT WITH PMD ON 02/23 FOR FOLLOW UP
[2019-02-19 14:22] LABS: ALBUMIN 4.4 G/DL (3.4-5.0); ALBUMIN/GLOBULIN RATIO 1.1 (1.1-1.5); ALKALINE PHOSPHATASE 105 IU/L (46-116); ANION GAP 8 (8-16); BILIRUBIN,TOTAL 0.4 MG/DL (0.1-1.0); BLOOD UREA NITROGEN 22 MG/DL (7-18); BUN/CREATININE RATIO 17.9 (5.4-32.0); CALCIUM 9.7 MG/DL (8.5-10.1); CHLORIDE 95 MMOL/L (99-107); CREATININE 1.23 MG/DL (0.60-1.10); MAGNESIUM 1.7 MG/DL (1.5-2.4); SODIUM 132 MMOL/L (135-145); TOTAL CARBON DIOXIDE 29.3 MMOL/L (24-32); TOTAL PROTEIN 8.5 G/DL (6.4-8.2); eGFR 65 ML/MIN
[2019-02-19 14:23] LABS: POTASSIUM 5.1 MMOL/L (3.5-5.1)
[2019-02-19 14:25] LABS: GLUCOSE 610 MG/DL (70-104)
[2019-02-19] MEDS ORDERED: insulin regular, human 10 units/0.1 ml syringe IV ONE ×2 (14:35→17:20)
[2019-02-19 14:44] LABS: ALANINE AMINOTRANSFERASE 27 U/L (12-78); ASPARTATE AMINO TRANSFERASE 9 U/L (10-37)
[2019-02-19 15:08] LABS: CLARITY,URINE CLEAR (Clear); COLOR,URINE STRAW (Yellow); GLUCOSE, URINE >=1000 mg/dl (Neg); KETONES,URINE NEGATIVE (Neg); LEUKOCYTE ESTERASE ,URINE NEGATIVE (Neg); NITRITES, URINE NEGATIVE (Neg); OCCULT BLOOD,URINE NEGATIVE (Neg); PROTEIN,URINE NEGATIVE (Neg); UA COLLECTION TYPE CLN CATCH MIDSTREAM; UROBILINOGEN,URINE 0.2 E.U/dL (0.2-1.0)
[2019-02-19 15:12] LABS: MEAN CORPUSCULAR HGB CONC 35.7 g/dL (33.0-36.5)
[2019-02-19 15:21] LABS: SQUAMOUS EPITHELIAL CELL,UR NONE SEEN /LPF (FEW)
[2019-02-19 15:24] LABS: BACTERIA,URINE NONE SEEN /HPF (Neg); RBC,URINE NONE SEEN /HPF (0-2); WBC,URINE NONE SEEN /HPF (0-4)
[2019-02-19 16:40] VITALS: BP 134/95
[2019-02-19] MEDS ORDERED: potassium Cl 20 mEq SR tablet PO STA (17:17)
== END 2019-02-19 17:38 | disposition home or self-care (01) ==
LOC: ER 13:09
DX: E11.65 Type 2 diabetes mellitus with hyperglycemia (principal); G40.909 Epilepsy, unspecified, not intractable, without status epilepticus; I10 Essential (primary) hypertension; G89.29 Other chronic pain; F41.9 Anxiety disorder, unspecified; F12.90 Cannabis use, unspecified, uncomplicated; Z90.49 Acquired absence of other specified parts of digestive tract; Z98.890 Other specified postprocedural states; Z88.8 Allergy status to other drugs, medicaments and biological substances; Z88.5 Allergy status to narcotic agent; Z79.4 Long term (current) use of insulin; Z79.899 Other long term (current) drug therapy
CPT/HCPCS: 36415; 71045; 80053; 81001; 82948; 83735; 84145; 85025; 96374; 96375; 96376; 99284; J1815; J2060; J7030; 96361

== ENCOUNTER 2019-07-03 20:47 | Emergency (ER) | payer MEDICARE, MEDICAID ==
[~2019-07-03] VITALS: Ht 180.3 cm; Wt 97.7 kg
[2019-07-03 21:20] LABS: BASOPHILS % (AUTO) 0.6 % (0-1); EOSINOPHILS # (AUTO) 0.1 X10'3 (0-0.9); EOSINOPHILS % (AUTO) 1.8 % (0-6); HEMATOCRIT 39.4 % (42.0-52.0); HEMOGLOBIN 13.5 g/dl (14.0-17.9); LYMPHOCYTES # (AUTO) 1.5 X10'3 (1.1-4.8); LYMPHOCYTES % (AUTO) 35.2 % (21-51); MEAN CORPUSCULAR HEMOGLOBIN 32.1 PG (27.0-31.0); MEAN CORPUSCULAR HGB CONC 34.4 g/dL (33.0-36.5); MEAN CORPUSCULAR VOLUME 93.5 FL (78-98); MEAN PLATELET VOLUME 9.6 FL (7.4-10.4); MONOCYTES # (AUTO) 0.3 X10'3 (0-0.9); MONOCYTES % (AUTO) 7.2 % (2-12); NEUTROPHILS # (AUTO) 2.3 X10'3 (1.8-7.7); NEUTROPHILS % (AUTO) 55.2 % (42-75); PLATELET COUNT 175 X10'3 (140-440); RED BLOOD COUNT 4.21 X10'6 (4.70-6.10); RED CELL DISTRIBUTION WIDTH 13.2 % (11.5-14.5); WHITE BLOOD COUNT 4.2 X10'3 (4.5-11.0)
[2019-07-03] MEDS ORDERED: normal saline 1000ml 1,000 ML IV ONE ×3 (21:25→22:10)
[2019-07-03] MEDS ORDERED: pantoprazole IV 80 MG in normal saline 100ml IV soln 100 ML IV ONE (21:25)
[2019-07-03 21:28] LABS: PARTIAL THROMBOPLASTIN TIME 26 SECONDS (22-32)
[2019-07-03 21:29] LABS: ALBUMIN 3.6 G/DL (3.4-5.0); ALBUMIN/GLOBULIN RATIO 0.9 (1.1-1.5); ALKALINE PHOSPHATASE 65 IU/L (46-116); BILIRUBIN,TOTAL 0.3 MG/DL (0.1-1.0); BLOOD UREA NITROGEN 16 MG/DL (7-18); BUN/CREATININE RATIO 12.6 (5.4-32.0); CALCIUM 8.8 MG/DL (8.5-10.1); CHLORIDE 101 MMOL/L (99-107); CREATININE 1.27 MG/DL (0.60-1.10); LIPASE 446 U/L (73-393); TOTAL CARBON DIOXIDE 28.7 MMOL/L (24-32); TOTAL PROTEIN 7.5 G/DL (6.4-8.2); eGFR 63 ML/MIN
[2019-07-03] MEDS ORDERED: ondansetron/PF 4mg/2ml inj IV ONE (21:30)
[2019-07-03] MEDS ORDERED: pantoprazole 40MG/NS 100ML BAG 100 ML IV SCH (21:30)
[2019-07-03] MEDS ORDERED: morphine 4 MG/ML inj SYRINge IV ONE (21:30)
[2019-07-03 21:37] LABS: ANION GAP 9 (8-16); GLUCOSE 300 MG/DL (70-104); POTASSIUM 4.5 MMOL/L (3.5-5.1); SODIUM 139 MMOL/L (135-145)
[2019-07-03 21:41] LABS: ALANINE AMINOTRANSFERASE 30 U/L (12-78); ASPARTATE AMINO TRANSFERASE 24 U/L (10-37)
[2019-07-03 22:05] LABS: CLARITY,URINE CLEAR (Clear); COLOR,URINE YELLOW (Yellow); GLUCOSE, URINE >=1000 mg/dl (Neg); KETONES,URINE NEGATIVE (Neg); LEUKOCYTE ESTERASE ,URINE NEGATIVE (Neg); NITRITES, URINE NEGATIVE (Neg); OCCULT BLOOD,URINE NEGATIVE (Neg); PROTEIN,URINE NEGATIVE (Neg); UROBILINOGEN,URINE 0.2 E.U/dL (0.2-1.0)
[2019-07-03 22:10] LABS: UA COLLECTION TYPE URINAL
--- NOTE | 2019-07-03 22:17 | NUR ---
pt is recieving first ns bolus and will be getting two more, protonix 20ml is infusing, will continue to monitor
[2019-07-03 22:20] LABS: BACTERIA,URINE NONE SEEN /HPF (Neg); RBC,URINE NONE SEEN /HPF (0-2); SQUAMOUS EPITHELIAL CELL,UR FEW /LPF (FEW); WBC,URINE NONE SEEN /HPF (0-4)
[2019-07-03 22:21] LABS: MUCUS STRANDS NONE SEEN /LPF (Neg)
[2019-07-04 00:05] VITALS: BP 150/94
[2019-07-04 08:20] LABS: OCCULT BLOOD STOOL POSITIVE (Neg)
== END 2019-07-04 00:12 | disposition home or self-care (01) ==
LOC: ER 20:47
DX: K92.2 Gastrointestinal hemorrhage, unspecified (principal); E11.65 Type 2 diabetes mellitus with hyperglycemia; K92.1 Melena; R10.84 Generalized abdominal pain; R19.7 Diarrhea, unspecified; R42 Dizziness and giddiness; I10 Essential (primary) hypertension; G89.29 Other chronic pain; F41.9 Anxiety disorder, unspecified; F12.90 Cannabis use, unspecified, uncomplicated; Z86.69 Personal history of other diseases of the nervous system and sense organs; Z90.89 Acquired absence of other organs; Z90.49 Acquired absence of other specified parts of digestive tract; Z98.890 Other specified postprocedural states; Z88.6 Allergy status to analgesic agent; Z88.8 Allergy status to other drugs, medicaments and biological substances; Z79.4 Long term (current) use of insulin; Z79.899 Other long term (current) drug therapy
CPT/HCPCS: 36415; 71045; 80053; 81001; 82272; 82948; 83690; 85025; 85610; 85730; 93005; 96365; 96375; 99285; C9113; J2270; J2405; J7030; 96366; 96374

== ENCOUNTER 2019-08-07 16:35 | Emergency (ER) | payer MEDICARE, MEDICAID ==
[~2019-08-07] VITALS: Ht 180.3 cm; Wt 110.9 kg
--- NOTE | 2019-08-07 16:45 | NUR ---
in with pt
[2019-08-07 18:21] VITALS: BP 121/64
== END 2019-08-07 18:24 | disposition home or self-care (01) ==
LOC: ER 16:35
DX: G40.909 Epilepsy, unspecified, not intractable, without status epilepticus (principal); I10 Essential (primary) hypertension; E11.9 Type 2 diabetes mellitus without complications; G89.29 Other chronic pain; F41.9 Anxiety disorder, unspecified; F17.200 Nicotine dependence, unspecified, uncomplicated; Z90.49 Acquired absence of other specified parts of digestive tract; Z98.890 Other specified postprocedural states; Z88.5 Allergy status to narcotic agent; Z88.8 Allergy status to other drugs, medicaments and biological substances; Z79.4 Long term (current) use of insulin; Z79.899 Other long term (current) drug therapy
CPT/HCPCS: 36415; 80164; 93005; 99284

== ENCOUNTER → 2019-09-24 | Outpatient (CLI) | payer MEDICARE, MEDICAID | END | disposition home or self-care (01) | LOC: RAD 12:38 | PROVIDERS: ATTEND Psychiatry & Neurology Neurology | DX: G40.909 Epilepsy, unspecified, not intractable, without status epilepticus (principal) | CPT/HCPCS: 95816 ==

== ENCOUNTER 2019-11-30 13:16 | Observation (INO) | payer MEDICARE, MEDICAID ==
[~2019-11-30] VITALS: Ht 180.3 cm; Wt 89.5 kg
[2019-11-30 14:27] LABS: BASOPHILS % (AUTO) 1.1 % (0-1); EOSINOPHILS % (AUTO) 1.1 % (0-6); HEMATOCRIT 41.2 % (42.0-52.0); HEMOGLOBIN 14.1 g/dl (14.0-17.9); LYMPHOCYTES # (AUTO) 1.3 X10'3 (1.1-4.8); LYMPHOCYTES % (AUTO) 30.3 % (21-51); MEAN CORPUSCULAR HEMOGLOBIN 32.3 PG (27.0-31.0); MEAN CORPUSCULAR HGB CONC 34.2 g/dL (33.0-36.5); MEAN CORPUSCULAR VOLUME 94.5 FL (78-98); MEAN PLATELET VOLUME 10.1 FL (7.4-10.4); MONOCYTES # (AUTO) 0.2 X10'3 (0-0.9); MONOCYTES % (AUTO) 5.6 % (2-12); NEUTROPHILS # (AUTO) 2.7 X10'3 (1.8-7.7); NEUTROPHILS % (AUTO) 61.9 % (42-75); PLATELET COUNT 191 X10'3 (140-440); RED BLOOD COUNT 4.36 X10'6 (4.70-6.10); RED CELL DISTRIBUTION WIDTH 13.4 % (11.5-14.5); WHITE BLOOD COUNT 4.4 X10'3 (4.5-11.0)
[2019-11-30 14:45] LABS: ALANINE AMINOTRANSFERASE 54 U/L (12-78); ALBUMIN/GLOBULIN RATIO 0.9 (1.1-1.5); ALKALINE PHOSPHATASE 73 IU/L (46-116); ANION GAP 7 (8-16); ASPARTATE AMINO TRANSFERASE 28 U/L (10-37); BILIRUBIN,TOTAL 0.5 MG/DL (0.1-1.0); BLOOD UREA NITROGEN 24 MG/DL (7-18); BUN/CREATININE RATIO 21.4 (5.4-32.0); CALCIUM 9.5 MG/DL (8.5-10.1); CHLORIDE 102 MMOL/L (99-107); CREATININE 1.12 MG/DL (0.60-1.10); GLUCOSE 256 MG/DL (70-104); POTASSIUM 4.5 MMOL/L (3.5-5.1); SODIUM 138 MMOL/L (135-145); TOTAL CARBON DIOXIDE 28.8 MMOL/L (24-32); TOTAL PROTEIN 8.6 G/DL (6.4-8.2); eGFR 72 ML/MIN
[2019-11-30] MEDS ORDERED: nitroGLYCERIN 0.4mg SUBLingual tab SL PRN ×3 (15:35→16:35)
[2019-11-30] MEDS ORDERED: aspirin 81mg tab.chew PO ONE (15:35)
--- NOTE | 2019-11-30 15:55 | NUR ---
PT DENIES CHEST PAIN AT THIS TIME
--- NOTE | 2019-11-30 16:25 | NUR ---
PHARMAAMYT COMPLETING MED REC
[2019-11-30] MEDS ORDERED: PRAM0.129 PO (16:29)
[2019-11-30] MEDS ORDERED: ATOR-2 PO (16:29)
[2019-11-30] MEDS ORDERED: LORA-268 PO (16:29)
[2019-11-30] MEDS ORDERED: ARIP15TA8 PO (16:29)
[2019-11-30] MEDS ORDERED: DIVA-52 PO (16:29)
[2019-11-30] MEDS ORDERED: DIVA-76 PO (16:29)
[2019-11-30] MEDS ORDERED: morphine 2 MG/ML inj. syringe IV PRN ×2 (16:35)
[2019-11-30] MEDS ORDERED: bisacodyl 10mg suppository rectal RC PRN (16:35)
[2019-11-30] MEDS ORDERED: regadenoson 0.4mg/5ml syringe IV PRN (16:35)
[2019-11-30] MEDS ORDERED: magnesium 2GM in 50ml NS 50 ML IV PRN (16:35)
[2019-11-30] MEDS ORDERED: magnesium 4gm in 100ml NS 100 ML IV PRN (16:35)
[2019-11-30] MEDS ORDERED: potassium CL 10mEq/100ml bag 100 ML IV PRN ×2 (16:35)
[2019-11-30] MEDS ORDERED: mag hydrox/Alum hydrox/simeth 30ml oral suspension PO PRN (16:35)
[2019-11-30] MEDS ORDERED: metoclopramide 5 mg/ml inj IV PRN (16:35)
[2019-11-30] MEDS ORDERED: metoprolol tartrate 1mg/ml inj IV PRN (16:35)
[2019-11-30] MEDS ORDERED: acetaminophen 325mg tablet PO PRN (16:35)
[2019-11-30] MEDS ORDERED: magnesium hydroxide 30ml (MOM) UD suspension PO PRN (16:35)
[2019-11-30] MEDS ORDERED: magnesium Cl slow-release 64mg tablet PO PRN (16:35)
[2019-11-30] MEDS ORDERED: potassium Cl 20 mEq SR tablet PO PRN ×2 (16:35)
[2019-11-30] MEDS ORDERED: ondansetron/PF 4mg/2ml inj IV PRN (16:35)
[2019-11-30] MEDS ORDERED: aminophylline 250mg/10ml inj. IV PRN (16:35)
[2019-11-30 17:07] LABS: URINE AMPHETAMINE SCREEN NEGATIVE (Neg); URINE BARBITUATE SCREEN NEGATIVE (Neg); URINE BENZODIAZEPINES SCREEN NEGATIVE (Neg); URINE CANNABINOID SCREEN POSITIVE (Neg); URINE COCAINE SCREEN NEGATIVE (Neg); URINE METHADONE SCREEN NEGATIVE (Neg); URINE OPIATE SCREEN NEGATIVE (Neg); URINE PHENCYCLIDINE SCREEN NEGATIVE (Neg)
[2019-11-30] MEDS: normal saline 1000ml 1,000 ML IV SCH ×2 (17:17→21:09)
[2019-11-30 17:23] LABS: HEMOGLOBIN A1C 7.4 % (4.5-6.2)
[2019-11-30 17:23] LABS: PHOSPHORUS 3.5 MG/DL (2.3-4.5)
[2019-11-30] MEDS ORDERED: ketorolac trometh. 30mg/ml inj. IV PRN (17:25)
[2019-11-30] MEDS ORDERED: LORazepam 2 mg/ml vial IV PRN (17:25)
[2019-11-30] MEDS ORDERED: LORazepam 0.5 MG tablet PO PRN (17:30)
[2019-11-30] MEDS ORDERED: SUMAtriptan 25 MG tablet PO PRN (17:45)
[2019-11-30 17:59] LABS: VALPROATE 46 UG/ML (50-100)
[2019-11-30] MEDS: K and/or MAG REPLACEMENT MC SCH (20:00)
--- NOTE | 2019-11-30 20:10 | NUR ---
received report from DIETETIC TECHNICIAN, had opportunity to ask questions, awaiting pt arrival to floor.
--- NOTE | 2019-11-30 20:20 | NUR ---
pt arrived to floor with all belongings, VS stable, tele attached to pt, call light within reach, pt oriented to floor.
--- NOTE | 2019-11-30 20:20 | NUR ---
pt arrived to floor with all belongings, VS stable, tele attached, pt oriented to floor, pt ambulated from hallway to bed.
[2019-11-30 20:25] VITALS: BP 136/72
[2019-11-30] MEDS ORDERED: divalproex sodium 500mg tablet.DR PO SCH (21:00)
[2019-11-30] MEDS ORDERED: temazepam 15mg capsule PO PRN (21:00)
[2019-11-30] MEDS ORDERED: prazosin 5mg capsule PO SCH (21:00)
[2019-11-30] MEDS ORDERED: pramipexole 0.25mg tablet PO SCH (21:00)
[2019-11-30] MEDS: propranolol 40mg tablet PO SCH (21:08)
[2019-11-30] MEDS: gabapentin 300mg capsule PO SCH (21:09)
[2019-11-30] MEDS: lamoTRIgine 25mg tablet PO SCH (21:09)
[2019-11-30] MEDS: gemfibrozil 600mg tablet PO SCH (21:09)
[2019-11-30] MEDS: LACOSAMIDE 50 MG TABLET PO SCH (21:21)
--- NOTE | 2019-11-30 21:33 | NUR ---
NOTIFIED PAGER ID: [phone] MESSAGE: Shaq Lange, [phone]- pt has DM2, A1C 7.4, no ACHS orders in, no insulin orders are in either. please place orders. will check BS now.
[2019-11-30] MEDS ORDERED: dextrose ORAL solution 15 GM/59 ML bottle PO PRN ×2 (21:50)
[2019-11-30] MEDS ORDERED: MESSAGE TO PHARMACY PO ONE (21:50)
[2019-11-30] MEDS ORDERED: insulin Lispro (HumaLOG) vial - multi-dose SQ SCH (21:50)
[2019-11-30] MEDS ORDERED: dextrose 50%-water 50ml dispensing syringe IV PRN ×2 (21:50)
[2019-11-30] MEDS ORDERED: glucagon, human recombinant 1mg kit SUBCUT PRN (21:50)
[2019-11-30 22:00] VITALS: BP 110/66
[2019-12-01] VITALS (14 sets, daily range): BP systolic 114–144; BP diastolic 63–89
[2019-12-01 02:40] LABS: BASOPHILS # (AUTO) 0.1 X10'3 (0-0.2); BASOPHILS % (AUTO) 0.9 % (0-1); EOSINOPHILS # (AUTO) 0.1 X10'3 (0-0.9); EOSINOPHILS % (AUTO) 1.3 % (0-6); HEMATOCRIT 37.8 % (42.0-52.0); HEMOGLOBIN 13.1 g/dl (14.0-17.9); LYMPHOCYTES # (AUTO) 2.1 X10'3 (1.1-4.8); LYMPHOCYTES % (AUTO) 38.1 % (21-51); MEAN CORPUSCULAR HEMOGLOBIN 32.6 PG (27.0-31.0); MEAN CORPUSCULAR HGB CONC 34.6 g/dL (33.0-36.5); MEAN CORPUSCULAR VOLUME 94.1 FL (78-98); MONOCYTES # (AUTO) 0.4 X10'3 (0-0.9); MONOCYTES % (AUTO) 6.3 % (2-12); NEUTROPHILS % (AUTO) 53.4 % (42-75); PLATELET COUNT 172 X10'3 (140-440); RED BLOOD COUNT 4.02 X10'6 (4.70-6.10); RED CELL DISTRIBUTION WIDTH 12.9 % (11.5-14.5); WHITE BLOOD COUNT 5.6 X10'3 (4.5-11.0)
[2019-12-01 02:50] LABS: ALANINE AMINOTRANSFERASE 53 U/L (12-78); ALBUMIN 3.4 G/DL (3.4-5.0); ALKALINE PHOSPHATASE 64 IU/L (46-116); ANION GAP 7 (8-16); ASPARTATE AMINO TRANSFERASE 22 U/L (10-37); BILIRUBIN,TOTAL 0.3 MG/DL (0.1-1.0); BLOOD UREA NITROGEN 21 MG/DL (7-18); BUN/CREATININE RATIO 20.4 (5.4-32.0); CALCIUM 8.6 MG/DL (8.5-10.1); CHLORIDE 104 MMOL/L (99-107); CREATININE 1.03 MG/DL (0.60-1.10); GLUCOSE 175 MG/DL (70-104); SODIUM 137 MMOL/L (135-145); TOTAL CARBON DIOXIDE 26.4 MMOL/L (24-32); TOTAL PROTEIN 6.9 G/DL (6.4-8.2); eGFR 80 ML/MIN
[2019-12-01 02:54] LABS: CHOL/HDL RATIO 8.6 (0.00-4.99); CHOLESTEROL 197 MG/DL (0-200); HDL CHOLESTEROL 23 MG/DL (35-60); LDL CHOLESTEROL 97 MG/DL (50-100); MAGNESIUM 1.8 MG/DL (1.5-2.4); TRIGLYCERIDES 634 MG/DL (20-135)
--- NOTE | 2019-12-01 06:14 | NUR ---
Problems reprioritized. Patient report given, questions answered & plan of care reviewed with Christianne Nunez RN.
--- NOTE | 2019-12-01 06:20 | NUR ---
Patient in room PCU 3016B. I have received report from Maxwell RN and had the opportunity to ask questions and assume patient care.
[2019-12-01] MEDS ORDERED: lisinopril 10 MG tablet PO SCH (08:00)
[2019-12-01] MEDS: K and/or MAG REPLACEMENT MC SCH (08:00)
[2019-12-01] MEDS: LACOSAMIDE 50 MG TABLET PO SCH (08:00)
[2019-12-01] MEDS ORDERED: atorvastatin 20mg tablet PO SCH ×2 (08:00)
[2019-12-01] MEDS ORDERED: ESCITALOPRAM OXALATE 5 MG TABLET PO SCH (08:00)
[2019-12-01] MEDS ORDERED: pantoprazole 40mg Tablet.DR PO SCH (08:00)
[2019-12-01] MEDS ORDERED: divalproex sodium 500mg tablet.DR PO SCH (08:00)
[2019-12-01] MEDS: propranolol 40mg tablet PO SCH (08:00)
[2019-12-01] MEDS: gabapentin 300mg capsule PO SCH (08:00)
[2019-12-01] MEDS ORDERED: ARIPIPRAZOLE 15 MG TABLET PO SCH (08:00)
[2019-12-01] MEDS: gemfibrozil 600mg tablet PO SCH (08:02)
[2019-12-01] MEDS: lamoTRIgine 25mg tablet PO SCH (08:04)
[2019-12-01] MEDS ORDERED: aspirin 81mg tablet.DR PO SCH (08:30)
--- NOTE | 2019-12-01 11:37 | NUR ---
PAGER ID: [phone] MESSAGE: Christianne araiza [phone]. RE Rosario Lange [phone]. Demetra results are back, appears negative. Patient back in room, no CP. Thanks!
[2019-12-01] MEDS: normal saline 1000ml 1,000 ML IV SCH (12:32)
--- NOTE | 2019-12-01 13:35 | NUR ---
Per MD orders by Dr. Medina, patient is stable for discharge home. Discharge packet printed and reviewed with patient. IV removed, tele monitor removed. No new prescriptions for patient. Discharge instructions, return precautions, and follow up discussed with patient, all questions answered. Patient declined follow up appointment for DM management, states that he has good follow up with [facility]. Patient discharged with all belongings. Patient escorted to private vehicle to go home with family.
[2019-12-01] MEDS ORDERED: insulin glargine (Lantus) pen - multi-dose SQ SCH (21:00)
== END 2019-12-01 13:46 | disposition home or self-care (01) ==
LOC: ER 13:17 → ED HOLD 16:32 → PCU 3S 20:25
PROVIDERS: ADMIT Family Medicine; ATTEND Family Medicine
DX: I24.9 Acute ischemic heart disease, unspecified (principal); R07.89 Other chest pain; E11.65 Type 2 diabetes mellitus with hyperglycemia; I12.9 Hypertensive chronic kidney disease with stage 1 through stage 4 chronic kidney disease, or unspecified chronic kidney disease; E11.22 Type 2 diabetes mellitus with diabetic chronic kidney disease; N18.9 Chronic kidney disease, unspecified; E78.5 Hyperlipidemia, unspecified; E03.9 Hypothyroidism, unspecified; E78.00 Pure hypercholesterolemia, unspecified; G40.909 Epilepsy, unspecified, not intractable, without status epilepticus; F40.00 Agoraphobia, unspecified; G47.33 Obstructive sleep apnea (adult) (pediatric); F17.210 Nicotine dependence, cigarettes, uncomplicated; Z99.89 Dependence on other enabling machines and devices; Z90.49 Acquired absence of other specified parts of digestive tract; Z79.4 Long term (current) use of insulin; Z79.899 Other long term (current) drug therapy; Z88.6 Allergy status to analgesic agent; Z88.4 Allergy status to anesthetic agent; Z88.8 Allergy status to other drugs, medicaments and biological substances
CPT/HCPCS: 36415; 71045; 78452; 80053; 80061; 80164; 80305; 82948; 83036; 83735; 83880; 84100; 84443; 84484; 85025; 87081; 93005; 93017; 93306; 94660; 94760; 99285; A9500; G0378; J2785; J7030; J1815

== ENCOUNTER 2020-03-01 17:18 | Emergency (ER) | payer MEDICARE, MEDICAID ==
[~2020-03-01] VITALS: Ht 180.3 cm; Wt 104.5 kg
[~2020-03-01 17:18] MED LIST changes: +ARIP15TA8 PO; +ATOR-2 PO; -CARB200T2 PO; +DIVA-52 PO; +DIVA-76 PO; -DIVA-81 PO; -DIVA500T9 PO; -FENO145T25 PO; -INSU100V11 SQ; -LANTUS SQ; +LORA-268 PO; -MIN5C PO; -OMEP-50 PO; -ONDA4TAB12 PO; +PRAM0.129 PO; -PRAM0.253 PO; -ibuprofen PO
--- NOTE | 2020-03-01 17:36 | NUR ---
() GRAY [phone],
[2020-03-01] MEDS ORDERED: levetiracetam inj 1,000 MG in normal saline 100ml IV soln 90 ML IV ONE (17:40)
[2020-03-01] MEDS ORDERED: levetiracetam-NS 1000mg/100ml 100 ML IV ONE (17:43)
--- NOTE | 2020-03-01 17:53 | NUR ---
TO CT VIA [facility]
--- NOTE | 2020-03-01 18:03 | NUR ---
BACK FROM CT, STARTED IV KEPPRA
[2020-03-01 18:21] LABS: CLARITY,URINE CLEAR (Clear); COLOR,URINE YELLOW (Yellow); GLUCOSE, URINE >=1000 mg/dl (Neg); KETONES,URINE NEGATIVE (Neg); LEUKOCYTE ESTERASE ,URINE NEGATIVE (Neg); NITRITES, URINE NEGATIVE (Neg); OCCULT BLOOD,URINE NEGATIVE (Neg); PROTEIN,URINE NEGATIVE (Neg); UROBILINOGEN,URINE 0.2 E.U/dL (0.2-1.0)
[2020-03-01 18:33] LABS: UA COLLECTION TYPE URINAL
[2020-03-01 18:37] LABS: BACTERIA,URINE NONE SEEN /HPF (Neg); RBC,URINE NONE SEEN /HPF (0-2); SQUAMOUS EPITHELIAL CELL,UR FEW /LPF (FEW); WBC,URINE NONE SEEN /HPF (0-4)
[2020-03-01 18:42] LABS: BASOPHILS # (AUTO) 0.1 X10'3 (0-0.2); BASOPHILS % (AUTO) 1.9 % (0-1); EOSINOPHILS % (AUTO) 0.8 % (0-6); HEMATOCRIT 36.7 % (42.0-52.0); HEMOGLOBIN 13.9 g/dl (14.0-17.9); LYMPHOCYTES # (AUTO) 1.6 X10'3 (1.1-4.8); LYMPHOCYTES % (AUTO) 30.9 % (21-51); MEAN CORPUSCULAR VOLUME 93.2 FL (78-98); MONOCYTES # (AUTO) 0.3 X10'3 (0-0.9); MONOCYTES % (AUTO) 6.5 % (2-12); NEUTROPHILS # (AUTO) 3.1 X10'3 (1.8-7.7); NEUTROPHILS % (AUTO) 59.9 % (42-75); RED BLOOD COUNT 3.94 X10'6 (4.70-6.10); RED CELL DISTRIBUTION WIDTH 13.6 % (11.5-14.5); WHITE BLOOD COUNT 5.2 X10'3 (4.5-11.0)
[2020-03-01 18:45] LABS: TOTAL CARBON DIOXIDE 26.1 MMOL/L (24-32)
[2020-03-01 19:02] VITALS: BP 138/79
[2020-03-01 19:09] LABS: MEAN CORPUSCULAR HEMOGLOBIN 32.3 PG (27.0-31.0); MEAN CORPUSCULAR HGB CONC 34.3 g/dL (33.0-36.5)
[2020-03-01 19:13] LABS: ALANINE AMINOTRANSFERASE 47 U/L (12-78); ALBUMIN 3.8 G/DL (3.4-5.0); ALKALINE PHOSPHATASE 72 IU/L (46-116); ASPARTATE AMINO TRANSFERASE 21 U/L (10-37); BILIRUBIN,TOTAL 0.3 MG/DL (0.1-1.0); BLOOD UREA NITROGEN 23 MG/DL (7-18); BUN/CREATININE RATIO 15.9 (5.4-32.0); CALCIUM 9.2 MG/DL (8.5-10.1); CHLORIDE 97 MMOL/L (99-107); CREATININE 1.45 MG/DL (0.60-1.10); GLUCOSE 359 MG/DL (70-104); TOTAL PROTEIN 7.5 G/DL (6.4-8.2); eGFR 54 ML/MIN
[2020-03-01 19:14] LABS: MEAN PLATELET VOLUME 9.8 FL (7.4-10.4); PLATELET COUNT 206 X10'3 (140-440)
[2020-03-01 19:33] LABS: POTASSIUM 5.1 MMOL/L (3.5-5.1)
[2020-03-01 19:40] LABS: ANION GAP 8 (8-16); SODIUM 131 MMOL/L (135-145)
== END 2020-03-01 19:58 | disposition home or self-care (01) ==
LOC: ER 17:20
DX: G40.909 Epilepsy, unspecified, not intractable, without status epilepticus (principal); R55 Syncope and collapse; E78.00 Pure hypercholesterolemia, unspecified; I10 Essential (primary) hypertension; E11.9 Type 2 diabetes mellitus without complications; G89.29 Other chronic pain; F41.9 Anxiety disorder, unspecified; Z86.69 Personal history of other diseases of the nervous system and sense organs; Z90.89 Acquired absence of other organs; Z90.49 Acquired absence of other specified parts of digestive tract; Z98.890 Other specified postprocedural states; Z88.6 Allergy status to analgesic agent; Z88.8 Allergy status to other drugs, medicaments and biological substances; Z79.899 Other long term (current) drug therapy
CPT/HCPCS: 36415; 70450; 80053; 81001; 85025; 93005; 96365; 99285; J1953

== ENCOUNTER 2020-03-04 14:39 | Emergency (ER) | payer MEDICARE, MEDICAID ==
[~2020-03-04] VITALS: Ht 180.3 cm; Wt 104.5 kg
[2020-03-04 16:25] LABS: BASOPHILS # (AUTO) 0.1 X10'3 (0-0.2); BASOPHILS % (AUTO) 0.8 % (0-1); EOSINOPHILS # (AUTO) 0.1 X10'3 (0-0.9); LYMPHOCYTES # (AUTO) 1.4 X10'3 (1.1-4.8); LYMPHOCYTES % (AUTO) 22.6 % (21-51); MEAN PLATELET VOLUME 10.6 FL (7.4-10.4); MONOCYTES # (AUTO) 0.6 X10'3 (0-0.9); MONOCYTES % (AUTO) 8.8 % (2-12); NEUTROPHILS # (AUTO) 4.3 X10'3 (1.8-7.7); NEUTROPHILS % (AUTO) 66.8 % (42-75); PLATELET COUNT 256 X10'3 (140-440); RED CELL DISTRIBUTION WIDTH 13.8 % (11.5-14.5); TOTAL CARBON DIOXIDE 24.7 MMOL/L (24-32)
[2020-03-04] MEDS ORDERED: normal saline 1000ml 1,000 ML IV ONE (16:25)
[2020-03-04 16:40] LABS: CLARITY,URINE CLEAR (Clear); COLOR,URINE YELLOW (Yellow); GLUCOSE, URINE >=1000 mg/dl (Neg); KETONES,URINE 15 mg/dl (Neg); LEUKOCYTE ESTERASE ,URINE NEGATIVE (Neg); NITRITES, URINE NEGATIVE (Neg); OCCULT BLOOD,URINE NEGATIVE (Neg); PROTEIN,URINE NEGATIVE (Neg); UROBILINOGEN,URINE 0.2 E.U/dL (0.2-1.0)
[2020-03-04 16:41] LABS: ALANINE AMINOTRANSFERASE 51 U/L (12-78); ALBUMIN 4.4 G/DL (3.4-5.0); ALKALINE PHOSPHATASE 85 IU/L (46-116); ANION GAP 15 (8-16); BILIRUBIN,TOTAL 0.4 MG/DL (0.1-1.0); BLOOD UREA NITROGEN 24 MG/DL (7-18); BUN/CREATININE RATIO 12.3 (5.4-32.0); CALCIUM 9.5 MG/DL (8.5-10.1); CHLORIDE 95 MMOL/L (99-107); CREATININE 1.95 MG/DL (0.60-1.10); GLUCOSE 384 MG/DL (70-104); SODIUM 135 MMOL/L (135-145); TOTAL PROTEIN 8.6 G/DL (6.4-8.2); eGFR 38 ML/MIN
[2020-03-04 16:43] LABS: POTASSIUM 5.1 MMOL/L (3.5-5.1)
[2020-03-04 16:45] LABS: URINE AMPHETAMINE SCREEN NEGATIVE (Neg); URINE BARBITUATE SCREEN NEGATIVE (Neg); URINE BENZODIAZEPINES SCREEN NEGATIVE (Neg); URINE CANNABINOID SCREEN NEGATIVE (Neg); URINE COCAINE SCREEN NEGATIVE (Neg); URINE METHADONE SCREEN NEGATIVE (Neg); URINE OPIATE SCREEN NEGATIVE (Neg); URINE PHENCYCLIDINE SCREEN NEGATIVE (Neg)
[2020-03-04 16:45] LABS: HEMATOCRIT 39.1 % (42.0-52.0); HEMOGLOBIN 13.1 g/dl (14.0-17.9); MEAN CORPUSCULAR HEMOGLOBIN 31.5 PG (27.0-31.0); MEAN CORPUSCULAR HGB CONC 33.5 g/dL (33.0-36.5); MEAN CORPUSCULAR VOLUME 94.2 FL (78-98)
[2020-03-04 16:46] LABS: RED BLOOD COUNT 4.16 X10'6 (4.70-6.10); WHITE BLOOD COUNT 6.4 X10'3 (4.5-11.0)
[2020-03-04 16:48] LABS: BACTERIA,URINE NONE SEEN /HPF (Neg); RBC,URINE 0-2 /HPF (0-2); UA COLLECTION TYPE URINAL; WBC,URINE 0-4 /HPF (0-4)
[2020-03-04 16:49] LABS: MUCUS STRANDS NONE SEEN /LPF (Neg); SQUAMOUS EPITHELIAL CELL,UR FEW /LPF (FEW)
[2020-03-04 17:01] LABS: ASPARTATE AMINO TRANSFERASE 50 U/L (10-37)
[2020-03-04] MEDS ORDERED: normal saline 1000ML IV soln IVB ONE (17:05)
[2020-03-04 18:46] VITALS: BP 131/75
== END 2020-03-04 18:51 | disposition home or self-care (01) ==
LOC: ER 14:39
DX: G40.909 Epilepsy, unspecified, not intractable, without status epilepticus (principal); E11.65 Type 2 diabetes mellitus with hyperglycemia; E78.00 Pure hypercholesterolemia, unspecified; I10 Essential (primary) hypertension; G89.29 Other chronic pain; F17.200 Nicotine dependence, unspecified, uncomplicated; Z90.49 Acquired absence of other specified parts of digestive tract; Z98.890 Other specified postprocedural states; Z79.899 Other long term (current) drug therapy; Z88.8 Allergy status to other drugs, medicaments and biological substances
CPT/HCPCS: 36415; 76937; 80053; 80305; 81001; 85025; 96360; 96361; 99284; J7030; 99283

== ENCOUNTER 2020-06-18 21:51 | Emergency (ER) | payer MEDICARE, MEDICAID ==
[~2020-06-18] VITALS: Ht 180.3 cm; Wt 104.6 kg
[~2020-06-18 21:51] MED LIST changes: -ACET650T11 PO; +CARB-101 PO; -ESCI5TAB PO; +FENO130C14 PO; -GABA-532 PO; +GABA300C PO; -GEMF600T89 PO; +GLIP10TA11 PO; +HYDR-3964 PO; +INSU100I8 SQ; +LAMO25TA5 PO; -LAMO25TA94 PO; +LISI10TA27 PO; -LISI40TA4 PO; -LORA-268 PO; +NITR0.4T51 SL; -PANT-47 PO; +PANT40TA54 PO; -PRAM0.129 PO; -PRAZ5CAP PO; +PRAZ5CAP2 PO; -SUMA50TA PO; +TOPI25TA49 PO
[2020-06-18 22:12] VITALS: BP 152/106
[2020-06-18 22:52] LABS: CLARITY,URINE CLEAR (Clear); COLOR,URINE YELLOW (Yellow); GLUCOSE, URINE >=1000 mg/dl (Neg); KETONES,URINE TRACE mg/dl (Neg); LEUKOCYTE ESTERASE ,URINE NEGATIVE (Neg); NITRITES, URINE NEGATIVE (Neg); OCCULT BLOOD,URINE NEGATIVE (Neg); PROTEIN,URINE NEGATIVE (Neg); UROBILINOGEN,URINE 0.2 E.U/dL (0.2-1.0)
[2020-06-18 23:01] LABS: UA COLLECTION TYPE CLN CATCH MIDSTREAM
[2020-06-18 23:02] LABS: BACTERIA,URINE NONE SEEN /HPF (Neg); RBC,URINE NONE SEEN /HPF (0-2); SQUAMOUS EPITHELIAL CELL,UR FEW /LPF (FEW); WBC,URINE NONE SEEN /HPF (0-4)
[2020-06-18 23:05] LABS: BASOPHILS # (AUTO) 0.1 X10'3 (0-0.2); BASOPHILS % (AUTO) 0.8 % (0-1); EOSINOPHILS # (AUTO) 0.1 X10'3 (0-0.9); EOSINOPHILS % (AUTO) 1.6 % (0-6); HEMATOCRIT 40.3 % (42.0-52.0); LYMPHOCYTES # (AUTO) 2.1 X10'3 (1.1-4.8); MEAN PLATELET VOLUME 10.6 FL (7.4-10.4); MONOCYTES # (AUTO) 0.5 X10'3 (0-0.9); MONOCYTES % (AUTO) 6.4 % (2-12); NEUTROPHILS # (AUTO) 5.4 X10'3 (1.8-7.7); NEUTROPHILS % (AUTO) 66.2 % (42-75); PLATELET COUNT 275 X10'3 (140-440); RED CELL DISTRIBUTION WIDTH 13.4 % (11.5-14.5); WHITE BLOOD COUNT 8.2 X10'3 (4.5-11.0)
[2020-06-18 23:10] LABS: ALBUMIN 3.9 G/DL (3.4-5.0); ANION GAP 15 (8-16); CALCIUM 7.7 MG/DL (8.5-10.1); CHLORIDE 95 MMOL/L (99-107); LIPASE 603 U/L (73-393); SODIUM 133 MMOL/L (135-145); TOTAL CARBON DIOXIDE 23.4 MMOL/L (24-32)
[2020-06-18 23:53] LABS: ALANINE AMINOTRANSFERASE 50 U/L (12-78); ALBUMIN/GLOBULIN RATIO 0.8 (1.1-1.5); ALKALINE PHOSPHATASE 77 IU/L (46-116); BILIRUBIN,TOTAL 0.3 MG/DL (0.1-1.0); BLOOD UREA NITROGEN 23 MG/DL (7-18); CREATININE 1.28 MG/DL (0.60-1.10); GLUCOSE 296 MG/DL (70-104); TOTAL PROTEIN 8.5 G/DL (6.4-8.2); eGFR 62 ML/MIN
[2020-06-18 23:55] LABS: POTASSIUM 3.9 MMOL/L (3.5-5.1)
[2020-06-18 23:56] LABS: ASPARTATE AMINO TRANSFERASE 38 U/L (10-37)
[2020-06-19] LABS: MEAN CORPUSCULAR HEMOGLOBIN 31.7 PG (27.0-31.0); MEAN CORPUSCULAR HGB CONC 34.3 g/dL (33.0-36.5); RED BLOOD COUNT 4.41 X10'6 (4.70-6.10)
== END 2020-06-19 01:22 | disposition left against medical advice (07) ==
LOC: ER 21:51
DX: R10.84 Generalized abdominal pain (principal); Z53.21 Procedure and treatment not carried out due to patient leaving prior to being seen by health care provider
CPT/HCPCS: 36415; 80053; 81001; 82948; 83690; 85025

== ENCOUNTER 2020-07-01 19:22 | Emergency (ER) | payer MEDICARE, MEDICAID ==
[~2020-07-01] VITALS: Ht 180.3 cm; Wt 106.8 kg
[2020-07-01 20:04] LABS: CLARITY,URINE CLEAR (Clear); COLOR,URINE YELLOW (Yellow); GLUCOSE, URINE >=1000 mg/dl (Neg); KETONES,URINE NEGATIVE (Neg); LEUKOCYTE ESTERASE ,URINE NEGATIVE (Neg); NITRITES, URINE NEGATIVE (Neg); OCCULT BLOOD,URINE NEGATIVE (Neg); PROTEIN,URINE NEGATIVE (Neg); UROBILINOGEN,URINE 0.2 E.U/dL (0.2-1.0)
[2020-07-01 20:09] LABS: BASOPHILS % (AUTO) 0.9 % (0-1); EOSINOPHILS # (AUTO) 0.1 X10'3 (0-0.9); HEMATOCRIT 36.1 % (42.0-52.0); HEMOGLOBIN 12.4 g/dl (14.0-17.9); LYMPHOCYTES # (AUTO) 1.6 X10'3 (1.1-4.8); LYMPHOCYTES % (AUTO) 29.3 % (21-51); MEAN CORPUSCULAR HEMOGLOBIN 32.1 PG (27.0-31.0); MEAN CORPUSCULAR HGB CONC 34.3 g/dL (33.0-36.5); MEAN CORPUSCULAR VOLUME 93.5 FL (78-98); MEAN PLATELET VOLUME 10.6 FL (7.4-10.4); MONOCYTES # (AUTO) 0.3 X10'3 (0-0.9); MONOCYTES % (AUTO) 5.5 % (2-12); NEUTROPHILS # (AUTO) 3.4 X10'3 (1.8-7.7); NEUTROPHILS % (AUTO) 63.3 % (42-75); PLATELET COUNT 220 X10'3 (140-440); RED BLOOD COUNT 3.85 X10'6 (4.70-6.10); RED CELL DISTRIBUTION WIDTH 13.5 % (11.5-14.5); WHITE BLOOD COUNT 5.4 X10'3 (4.5-11.0)
[2020-07-01] MEDS ORDERED: normal saline 1000ML IV soln IVB ONE (20:10)
[2020-07-01 20:14] LABS: UA COLLECTION TYPE CLN CATCH MIDSTREAM
[2020-07-01 20:15] LABS: BACTERIA,URINE NONE SEEN /HPF (Neg); RBC,URINE NONE SEEN /HPF (0-2); SQUAMOUS EPITHELIAL CELL,UR FEW /LPF (FEW); WBC,URINE NONE SEEN /HPF (0-4)
[2020-07-01 20:38] LABS: ALBUMIN 3.4 G/DL (3.4-5.0); ALBUMIN/GLOBULIN RATIO 0.9 (1.1-1.5); ALKALINE PHOSPHATASE 57 IU/L (46-116); BILIRUBIN,TOTAL 0.3 MG/DL (0.1-1.0); BLOOD UREA NITROGEN 20 MG/DL (7-18); BUN/CREATININE RATIO 13.2 (5.4-32.0); CALCIUM 8.3 MG/DL (8.5-10.1); CREATININE 1.51 MG/DL (0.60-1.10); TOTAL CARBON DIOXIDE 24.4 MMOL/L (24-32); TOTAL PROTEIN 7.1 G/DL (6.4-8.2); eGFR 51 ML/MIN
[2020-07-01] MEDS ORDERED: insulin regular, human 10 units/0.1 ml syringe IV ONE ×2 (20:45→21:40)
[2020-07-01 21:10] LABS: ALANINE AMINOTRANSFERASE 49 U/L (12-78); ANION GAP 11 (8-16); ASPARTATE AMINO TRANSFERASE 28 U/L (10-37); CHLORIDE 101 MMOL/L (99-107); SODIUM 136 MMOL/L (135-145)
[2020-07-01 21:13] LABS: GLUCOSE 487 MG/DL (70-104)
--- NOTE | 2020-07-01 21:38 | NUR ---
DR HESS NOTIFIED OF CBG AFTER IVF, ORDER TO GIVE 5 U IV INSULIN INSTEAD OF 10
[2020-07-01 22:19] VITALS: BP 125/76
== END 2020-07-01 22:21 | disposition home or self-care (01) ==
LOC: ER 19:23
DX: E11.65 Type 2 diabetes mellitus with hyperglycemia (principal); R11.2 Nausea with vomiting, unspecified; E78.00 Pure hypercholesterolemia, unspecified; I10 Essential (primary) hypertension; G89.29 Other chronic pain; F17.200 Nicotine dependence, unspecified, uncomplicated; Z86.19 Personal history of other infectious and parasitic diseases; Z90.49 Acquired absence of other specified parts of digestive tract; Z98.890 Other specified postprocedural states; Z86.69 Personal history of other diseases of the nervous system and sense organs; Z88.8 Allergy status to other drugs, medicaments and biological substances; Z79.899 Other long term (current) drug therapy; Z79.4 Long term (current) use of insulin
CPT/HCPCS: 36415; 80053; 81001; 82948; 85025; 96361; 96374; 99283; J1815; J7030

== ENCOUNTER 2020-10-03 12:19 | Emergency (ER) | payer MEDICARE, MEDICAID ==
[~2020-10-03] VITALS: Ht 180.3 cm; Wt 90.0 kg
[~2020-10-03 12:19] MED LIST changes: +ARIP15TA19 PO; -ARIP15TA8 PO
[2020-10-03] MEDS ORDERED: normal saline 1000ML IV soln IVB ONE ×2 (12:50→14:05)
[2020-10-03 13:20] LABS: EOSINOPHILS # (AUTO) 0.1 X10'3 (0-0.9)
[2020-10-03 13:28] LABS: TOTAL CARBON DIOXIDE 24.6 MMOL/L (24-32)
[2020-10-03 13:53] LABS: BASOPHILS # (AUTO) 0.1 X10'3 (0-0.2)
[2020-10-03 13:57] LABS: ALANINE AMINOTRANSFERASE 37 U/L (12-78); ALBUMIN 4.3 G/DL (3.4-5.0); ALKALINE PHOSPHATASE 102 IU/L (46-116); ANION GAP 13 (8-16); ASPARTATE AMINO TRANSFERASE 31 U/L (10-37); BILIRUBIN,TOTAL 0.6 MG/DL (0.1-1.0); BLOOD UREA NITROGEN 21 MG/DL (7-18); BUN/CREATININE RATIO 15.7 (5.4-32.0); CHLORIDE 98 MMOL/L (99-107); CREATININE 1.34 MG/DL (0.60-1.10); GLUCOSE 400 MG/DL (70-104); MAGNESIUM 2.1 MG/DL (1.5-2.4); POTASSIUM 4.9 MMOL/L (3.5-5.1); SODIUM 136 MMOL/L (135-145); TOTAL PROTEIN 8.4 G/DL (6.4-8.2); eGFR 58 ML/MIN
[2020-10-03] MEDS ORDERED: insulin regular, human 10 units/0.1 ml syringe IV ONE (14:05)
[2020-10-03 14:56] LABS: HEMATOCRIT 38.8 % (42.0-52.0); HEMOGLOBIN 13.6 g/dl (14.0-17.9); RED BLOOD COUNT 4.29 X10'6 (4.70-6.10); WHITE BLOOD COUNT 4.9 X10'3 (4.5-11.0)
[2020-10-03 14:57] LABS: LYMPHOCYTES % (AUTO) 34.7 % (21-51); MEAN CORPUSCULAR HEMOGLOBIN 31.6 PG (27.0-31.0); MEAN CORPUSCULAR HGB CONC 34.9 g/dL (33.0-36.5); MEAN CORPUSCULAR VOLUME 90.5 FL (78-98); MEAN PLATELET VOLUME 10.6 FL (7.4-10.4); MONOCYTES % (AUTO) 5.8 % (2-12); NEUTROPHILS % (AUTO) 56.1 % (42-75); PLATELET COUNT 260 X10'3 (140-440)
[2020-10-03 14:58] LABS: BASOPHILS % (AUTO) 1.8 % (0-1); EOSINOPHILS % (AUTO) 1.6 % (0-6); LYMPHOCYTES # (AUTO) 1.7 X10'3 (1.1-4.8); MONOCYTES # (AUTO) 0.3 X10'3 (0-0.9); NEUTROPHILS # (AUTO) 2.7 X10'3 (1.8-7.7)
--- NOTE | 2020-10-03 15:21 | NUR ---
notified the provider {kenneth}that pt b.s is 258.
--- NOTE | 2020-10-03 15:25 | NUR ---
NOTIFIED MIGUEL MAE ABOUT PT B.S 258 ,NO ORDERS YET.
[2020-10-03 16:44] LABS: CLARITY,URINE CLEAR (Clear); COLOR,URINE YELLOW (Yellow); GLUCOSE, URINE >=1000 mg/dl (Neg); KETONES,URINE TRACE mg/dl (Neg); LEUKOCYTE ESTERASE ,URINE NEGATIVE (Neg); NITRITES, URINE NEGATIVE (Neg); OCCULT BLOOD,URINE NEGATIVE (Neg); PROTEIN,URINE NEGATIVE (Neg); UROBILINOGEN,URINE 0.2 E.U/dL (0.2-1.0)
[2020-10-03 16:48] LABS: UA COLLECTION TYPE VOIDED
[2020-10-03 16:59] LABS: BACTERIA,URINE FEW /HPF (Neg); RBC,URINE 0-2 /HPF (0-2); WBC,URINE 0-4 /HPF (0-4)
[2020-10-03 17:00] LABS: SQUAMOUS EPITHELIAL CELL,UR FEW /LPF (FEW)
[2020-10-03 17:19] VITALS: BP 157/98
== END 2020-10-03 17:22 | disposition home or self-care (01) ==
LOC: ER 12:19
DX: E11.65 Type 2 diabetes mellitus with hyperglycemia (principal); R07.89 Other chest pain; R06.02 Shortness of breath; I10 Essential (primary) hypertension; G40.909 Epilepsy, unspecified, not intractable, without status epilepticus; E78.00 Pure hypercholesterolemia, unspecified; G89.29 Other chronic pain; Z90.49 Acquired absence of other specified parts of digestive tract; Z98.890 Other specified postprocedural states; Z86.19 Personal history of other infectious and parasitic diseases; Z88.8 Allergy status to other drugs, medicaments and biological substances; Z79.899 Other long term (current) drug therapy; Z79.4 Long term (current) use of insulin
CPT/HCPCS: 36415; 71045; 80053; 81001; 82948; 83735; 83880; 84484; 85025; 93005; 96361; 96374; 99285; J1815; J7030

== ENCOUNTER 2021-10-27 01:25 | Emergency (ER) | payer BC, MEDICAID ==
[~2021-10-27] VITALS: Ht 180.3 cm; Wt 104.0 kg
[~2021-10-27 01:25] MED LIST changes: +ALBU8HFA IH; -ARIP15TA19 PO; -ATOR-2 PO; -CARB-101 PO; +CARI1.5C PO; +CLON-568 PO; -FENO130C14 PO; +GEMF600T89 PO; -HYDR-3964 PO; -LACO100T2 PO; +LACO200T2 PO; +LAMO100T PO; -LAMO25TA5 PO; +LANTUS SQ; -LISI10TA27 PO; -PANT40TA54 PO; +PRAZ2CAP2 PO
[2021-10-27 02:19] LABS: ALBUMIN 3.5 G/DL (3.4-5.0); ALKALINE PHOSPHATASE 68 IU/L (46-116); BLOOD UREA NITROGEN 22 MG/DL (7-18); BUN/CREATININE RATIO 19.6 (5.4-32.0); CHLORIDE 99 MMOL/L (99-107); CREATININE 1.12 MG/DL (0.60-1.10); TOTAL CARBON DIOXIDE 23.7 MMOL/L (24-32); eGFR 72 ML/MIN
[2021-10-27 02:46] LABS: ALANINE AMINOTRANSFERASE 33 U/L (12-78); ALBUMIN/GLOBULIN RATIO 0.9 (1.1-1.5); ANION GAP 15 (8-16); ASPARTATE AMINO TRANSFERASE 21 U/L (10-37); BILIRUBIN,TOTAL 0.2 MG/DL (0.1-1.0); CALCIUM 8.8 MG/DL (8.5-10.1); GLUCOSE 391 MG/DL (70-104); POTASSIUM 4.3 MMOL/L (3.5-5.1); SODIUM 138 MMOL/L (135-145); TOTAL PROTEIN 7.6 G/DL (6.4-8.2)
[2021-10-27 04:31] LABS: CLARITY,URINE CLEAR (Clear); COLOR,URINE YELLOW (Yellow); GLUCOSE, URINE >=1000 mg/dl (Neg); KETONES,URINE 15 mg/dl (Neg); LEUKOCYTE ESTERASE ,URINE NEGATIVE (Neg); NITRITES, URINE NEGATIVE (Neg); OCCULT BLOOD,URINE NEGATIVE (Neg); PROTEIN,URINE NEGATIVE (Neg); UROBILINOGEN,URINE 0.2 E.U/dL (0.2-1.0)
[2021-10-27 04:32] LABS: UA COLLECTION TYPE CLN CATCH MIDSTREAM
[2021-10-27 04:45] LABS: BACTERIA,URINE NONE SEEN /HPF (Neg); RBC,URINE 0-2 /HPF (0-2); WBC,URINE 0-4 /HPF (0-4)
[2021-10-27 04:47] LABS: SQUAMOUS EPITHELIAL CELL,UR NONE SEEN /LPF (FEW)
[2021-10-27 05:01] LABS: BASOPHILS % (AUTO) 0.6 % (0-1); EOSINOPHILS # (AUTO) 0.1 X10'3 (0-0.9); EOSINOPHILS % (AUTO) 1.3 % (0-6); LYMPHOCYTES # (AUTO) 1.6 X10'3 (1.1-4.8); LYMPHOCYTES % (AUTO) 38.5 % (21-51); MEAN CORPUSCULAR VOLUME 90.9 FL (78-98); MEAN PLATELET VOLUME 10.3 FL (7.4-10.4); MONOCYTES # (AUTO) 0.3 X10'3 (0-0.9); MONOCYTES % (AUTO) 6.5 % (2-12); NEUTROPHILS # (AUTO) 2.2 X10'3 (1.8-7.7); NEUTROPHILS % (AUTO) 53.1 % (42-75); PLATELET COUNT 209 X10'3 (140-440); WHITE BLOOD COUNT 4.1 X10'3 (4.5-11.0)
[2021-10-27 06:18] LABS: HEMATOCRIT 32.5 % (42.0-52.0); HEMOGLOBIN 11.3 g/dl (14.0-17.9); RED BLOOD COUNT 3.58 X10'6 (4.70-6.10)
[2021-10-27 06:19] LABS: MEAN CORPUSCULAR HEMOGLOBIN 31.6 PG (27.0-31.0); MEAN CORPUSCULAR HGB CONC 34.8 g/dL (33.0-36.5); RED CELL DISTRIBUTION WIDTH 13.3 % (11.5-14.5)
[2021-10-27 06:56] VITALS: BP 148/58
[2021-10-28] MEDS ORDERED: SERT-434 PO (19:24)
== END 2021-10-27 06:59 | disposition home or self-care (01) ==
LOC: ER 01:26
DX: R56.9 Unspecified convulsions (principal); E11.65 Type 2 diabetes mellitus with hyperglycemia; E78.00 Pure hypercholesterolemia, unspecified; I10 Essential (primary) hypertension; G89.29 Other chronic pain; F41.9 Anxiety disorder, unspecified; Z86.69 Personal history of other diseases of the nervous system and sense organs; Z86.19 Personal history of other infectious and parasitic diseases; Z90.89 Acquired absence of other organs; Z90.49 Acquired absence of other specified parts of digestive tract; Z98.890 Other specified postprocedural states; Z88.8 Allergy status to other drugs, medicaments and biological substances; Z79.4 Long term (current) use of insulin; Z79.899 Other long term (current) drug therapy
CPT/HCPCS: 36415; 71045; 80053; 81001; 85025; 99284

== ENCOUNTER 2021-10-28 16:14 | Inpatient (IN) | payer BC, MEDICAID ==
[~2021-10-28] VITALS: Ht 180.3 cm; Wt 115.0 kg
[2021-10-28 18:25] LABS: BASOPHILS % (AUTO) 0.2 % (0-1); EOSINOPHILS % (AUTO) 0.9 % (0-6); HEMATOCRIT 37.5 % (42.0-52.0); HEMOGLOBIN 12.9 g/dl (14.0-17.9); LYMPHOCYTES # (AUTO) 1.3 X10'3 (1.1-4.8); LYMPHOCYTES % (AUTO) 27.2 % (21-51); MEAN CORPUSCULAR HEMOGLOBIN 31.3 PG (27.0-31.0); MEAN CORPUSCULAR HGB CONC 34.3 g/dL (33.0-36.5); MEAN CORPUSCULAR VOLUME 91.4 FL (78-98); MEAN PLATELET VOLUME 10.3 FL (7.4-10.4); MONOCYTES # (AUTO) 0.3 X10'3 (0-0.9); MONOCYTES % (AUTO) 6.5 % (2-12); NEUTROPHILS # (AUTO) 3.1 X10'3 (1.8-7.7); NEUTROPHILS % (AUTO) 65.2 % (42-75); PLATELET COUNT 190 X10'3 (140-440); RED BLOOD COUNT 4.11 X10'6 (4.70-6.10); RED CELL DISTRIBUTION WIDTH 13.3 % (11.5-14.5); WHITE BLOOD COUNT 4.7 X10'3 (4.5-11.0)
[2021-10-28 18:33] LABS: ALBUMIN 3.7 G/DL (3.4-5.0); ALKALINE PHOSPHATASE 68 IU/L (46-116); BILIRUBIN,TOTAL 0.4 MG/DL (0.1-1.0); BLOOD UREA NITROGEN 19 MG/DL (7-18); BUN/CREATININE RATIO 16.2 (5.4-32.0); CALCIUM 8.8 MG/DL (8.5-10.1); CHLORIDE 98 MMOL/L (99-107); CREATININE 1.17 MG/DL (0.60-1.10); TOTAL CARBON DIOXIDE 22.4 MMOL/L (24-32); TOTAL PROTEIN 7.5 G/DL (6.4-8.2); eGFR 68 ML/MIN
[2021-10-28] MEDS ORDERED: normal saline 1000ml 1,000 ML IV ONE (18:55)
[2021-10-28 19:00] LABS: ALANINE AMINOTRANSFERASE 36 U/L (12-78); ANION GAP 15 (8-16); ASPARTATE AMINO TRANSFERASE 20 U/L (10-37); CREATINE KINASE 450 U/L (39-308); GLUCOSE 336 MG/DL (70-104); POTASSIUM 4.2 MMOL/L (3.5-5.1); SODIUM 135 MMOL/L (135-145)
[2021-10-28 19:01] LABS: ETHANOL < 0.010 GM/DL (0.0-0.010); VALPROATE 55 UG/ML (50-100)
[2021-10-28] MEDS ORDERED: SERT-434 PO (19:24)
[2021-10-28] MEDS ORDERED: nitroGLYCERIN 0.4mg SUBLingual tab SL PRN (19:50)
[2021-10-28] MEDS ORDERED: magnesium hydroxide 30ml (MOM) UD suspension PO PRN (19:55)
[2021-10-28] MEDS ORDERED: morphine 2 MG/ML inj. syringe IV PRN ×2 (19:55)
[2021-10-28] MEDS ORDERED: dextrose 50%-water 50ml dispensing syringe IV PRN ×2 (19:55)
[2021-10-28] MEDS ORDERED: HYDROcodone/acetaminophen 10/325mg tab PO PRN (19:55)
[2021-10-28] MEDS ORDERED: mag hydrox/Alum hydrox/simeth 30ml oral suspension PO PRN (19:55)
[2021-10-28] MEDS ORDERED: DEXTROSE 15 GM of carb/4 tabs (each vial/BOTTLE has 4 tablets) PO PRN ×2 (19:55)
[2021-10-28] MEDS ORDERED: MESSAGE TO PHARMACY PO ONE (19:55)
[2021-10-28] MEDS ORDERED: ondansetron/PF 4mg/2ml inj IV PRN (19:55)
[2021-10-28] MEDS ORDERED: HYDROcodone/acetaminophen 5mg/325mg tablet PO PRN (19:55)
[2021-10-28] MEDS ORDERED: acetaminophen 325mg tablet PO PRN ×2 (19:55)
[2021-10-28] MEDS ORDERED: glucagon, human recombinant 1mg kit SUBCUT PRN (19:55)
[2021-10-28] MEDS ORDERED: lamoTRIgine 100mg tablet PO SCH (20:00)
[2021-10-28 20:23] LABS: HEMOGLOBIN A1C 9.3 % (4.5-6.2)
[2021-10-28] MEDS ORDERED: albuterol 2.5 MG/3 ML nebule NEB PRN (20:55)
[2021-10-28] MEDS: docusate sod 100mg capsule PO SCH (21:21)
[2021-10-28] MEDS: topiramate 25mg tablet PO SCH (21:22)
[2021-10-28] MEDS: divalproex sodium 500mg tablet.DR PO SCH (21:22)
[2021-10-28] MEDS: gabapentin 300mg capsule PO SCH (21:22)
[2021-10-28] MEDS: clonazePAM 1mg tablet PO SCH (21:23)
[2021-10-28] MEDS: prazosin 5mg capsule PO SCH (21:23)
[2021-10-28 22:40] VITALS: BP 128/82
[2021-10-28] MEDS: insulin glargine (Lantus) pen - multi-dose SQ SCH (23:10)
[2021-10-29 05:50] LABS: BASOPHILS % (AUTO) 0.9 % (0-1); EOSINOPHILS # (AUTO) 0.1 X10'3 (0-0.9); EOSINOPHILS % (AUTO) 1.6 % (0-6); HEMATOCRIT 36.8 % (42.0-52.0); HEMOGLOBIN 12.6 g/dl (14.0-17.9); LYMPHOCYTES # (AUTO) 1.5 X10'3 (1.1-4.8); MEAN CORPUSCULAR HEMOGLOBIN 31.4 PG (27.0-31.0); MEAN CORPUSCULAR HGB CONC 34.4 g/dL (33.0-36.5); MEAN CORPUSCULAR VOLUME 91.3 FL (78-98); MONOCYTES # (AUTO) 0.3 X10'3 (0-0.9); MONOCYTES % (AUTO) 7.4 % (2-12); NEUTROPHILS # (AUTO) 2.6 X10'3 (1.8-7.7); NEUTROPHILS % (AUTO) 57.1 % (42-75); PLATELET COUNT 183 X10'3 (140-440); RED BLOOD COUNT 4.03 X10'6 (4.70-6.10); RED CELL DISTRIBUTION WIDTH 13.3 % (11.5-14.5); WHITE BLOOD COUNT 4.6 X10'3 (4.5-11.0)
[2021-10-29 06:00] VITALS: BP 121/73
[2021-10-29 06:01] LABS: ALBUMIN 3.6 G/DL (3.4-5.0); ANION GAP 11 (8-16); BLOOD UREA NITROGEN 21 MG/DL (7-18); BUN/CREATININE RATIO 19.8 (5.4-32.0); CALCIUM 8.8 MG/DL (8.5-10.1); CHLORIDE 101 MMOL/L (99-107); CREATININE 1.06 MG/DL (0.60-1.10); GLUCOSE 208 MG/DL (70-104); SODIUM 138 MMOL/L (135-145); TOTAL CARBON DIOXIDE 26.1 MMOL/L (24-32); eGFR 76 ML/MIN
--- NOTE | 2021-10-29 06:33 | NUR ---
Problems reprioritized. Patient report given, questions answered & plan of care reviewed with JAG Flores.
--- NOTE | 2021-10-29 06:43 | NUR ---
Patient in room ORTHO 4017. I have received report from Nuria RM and had the opportunity to ask questions and assume patient care.
[2021-10-29] MEDS: docusate sod 100mg capsule PO SCH ×2 (07:16→20:52)
[2021-10-29] MEDS: gemfibrozil 600mg tablet PO SCH (07:17)
[2021-10-29] MEDS: divalproex sodium 500mg tablet.DR PO SCH ×2 (07:17→20:53)
[2021-10-29] MEDS: clonazePAM 1mg tablet PO SCH ×2 (07:17→20:52)
[2021-10-29] MEDS: CARIPRAZINE 1.5 MG CAPSULE PO SCH (07:18)
[2021-10-29] MEDS: topiramate 25mg tablet PO SCH ×2 (07:18→20:53)
[2021-10-29] MEDS: gabapentin 300mg capsule PO SCH ×2 (07:19→20:53)
[2021-10-29] MEDS: propranolol 40mg tablet PO SCH ×2 (07:19→20:53)
[2021-10-29] MEDS: LACOSAMIDE 50 MG TABLET PO SCH ×2 (07:20→20:52)
[2021-10-29] MEDS ORDERED: sertraline 50mg tablet PO SCH (08:00)
[2021-10-29] MEDS ORDERED: lamoTRIgine 25mg tablet PO SCH (08:00)
[2021-10-29] MEDS: LORazepam 2 mg/ml vial IV PRN ×2 (08:13→10:23)
--- NOTE | 2021-10-29 08:21 | NUR ---
PAGER ID: [phone] MESSAGE: [phone]-berta sanders- pt call light told tech he was going to have sz. sz started 807. went to get Ativan and tech stated pt sz stopped and then restarted. while administering Ativan sz stopped. pt able to answer questions.- Jatin [phone]
[2021-10-29 10:00] VITALS: BP 134/70
--- NOTE | 2021-10-29 10:24 | NUR ---
Patient placed call light on. Went to answer call light patient found having another seizure lasting arppox 3 mins. 1mg ativan given as ordered. Dr. Burton notified. Addendum: 10/29/21 at 1053 by Jatin Adams RN Per Dr. Burton no need to give ativan if seizure lasting less than 5 minutes.
[2021-10-29] MEDS ORDERED: lamoTRIgine 25mg tablet PO ONE (10:35)
--- NOTE | 2021-10-29 11:13 | NUR ---
Diabetes consult: Pt w/ hx of DM A1c 9.3 per EMR. Pt noted to have seizures this morning, has received DM ed and prior visits. Written DM ed w/ RD contact info placed in pt chart. Addendum: 10/29/21 at [address] Amended: Links added.
--- NOTE | 2021-10-29 12:29 | NUR ---
Patient call light on for 2 minutes. Went to check on patient and patient lying on left side lying position having another seizure did not last long approx 1 minute when at patient's bedside. When seizure stopped patient answered "hmm" when called his name. Let patient know there have been changed to medications and reassured patient safety and continuing to monitor. Patient nodded head yes. Will continue to monitor.
--- NOTE | 2021-10-29 13:19 | NUR ---
while rounding on patient, patient shaking mildly in bed with eyes clothes for approximately 1 minute.
[2021-10-29] MEDS: insulin Lispro (HumaLOG) vial - multi-dose SQ SCH ×2 (13:53→18:40)
--- NOTE | 2021-10-29 14:26 | NUR ---
patient had another seizure mild shaking and lasting approx 2 mins. Patient appears to be resting comfortably with eyes closed, respirations even and unlabored. Will continue to monitor.
--- NOTE | 2021-10-29 15:03 | NUR ---
patient had another short lasting seizure with mild shaking lasting approx 20 seconds. will continue to monitor.
[2021-10-29 15:11] VITALS: BP 144/74
[2021-10-29 18:00] VITALS: BP 154/90
--- NOTE | 2021-10-29 18:15 | NUR ---
Problems reprioritized. Patient report given, questions answered & plan of care reviewed with JAG Calderon.
--- NOTE | 2021-10-29 20:38 | NUR ---
SEIZURE ACTIVITY REPORTED TO ME BY CHARGE NURSE Nishi WISE RN ALSO WITNESSED BY RESPIRATORY THERAPIST. REPORTED THAT IT LASTED ABOUT 30 SECONDS. PATIENT NOW SEEMS SLIGHTLY LETHARGIC BUT OPENS EYES AND ANSWERS QUESTIONS APPROPRIATELY.
[2021-10-29] MEDS: insulin glargine (Lantus) pen - multi-dose SQ SCH (20:51)
[2021-10-29] MEDS: prazosin 5mg capsule PO SCH (20:52)
[2021-10-29] MEDS: lamoTRIgine 100mg tablet PO SCH (20:53)
[2021-10-30 06:00] VITALS: BP 144/93
[2021-10-30 06:18] LABS: BASOPHILS % (AUTO) 0.7 % (0-1); EOSINOPHILS # (AUTO) 0.1 X10'3 (0-0.9); EOSINOPHILS % (AUTO) 1.1 % (0-6); HEMATOCRIT 37.6 % (42.0-52.0); HEMOGLOBIN 13.2 g/dl (14.0-17.9); LYMPHOCYTES # (AUTO) 1.7 X10'3 (1.1-4.8); LYMPHOCYTES % (AUTO) 37.4 % (21-51); MEAN CORPUSCULAR HGB CONC 35.1 g/dL (33.0-36.5); MEAN CORPUSCULAR VOLUME 91.2 FL (78-98); MEAN PLATELET VOLUME 9.9 FL (7.4-10.4); MONOCYTES # (AUTO) 0.3 X10'3 (0-0.9); MONOCYTES % (AUTO) 7.2 % (2-12); NEUTROPHILS # (AUTO) 2.5 X10'3 (1.8-7.7); NEUTROPHILS % (AUTO) 53.6 % (42-75); PLATELET COUNT 178 X10'3 (140-440); RED BLOOD COUNT 4.12 X10'6 (4.70-6.10); RED CELL DISTRIBUTION WIDTH 13.1 % (11.5-14.5); WHITE BLOOD COUNT 4.6 X10'3 (4.5-11.0)
[2021-10-30 06:23] LABS: ALBUMIN 3.7 G/DL (3.4-5.0); ANION GAP 10 (8-16); BLOOD UREA NITROGEN 26 MG/DL (7-18); BUN/CREATININE RATIO 22.6 (5.4-32.0); CALCIUM 8.9 MG/DL (8.5-10.1); CHLORIDE 101 MMOL/L (99-107); CREATININE 1.15 MG/DL (0.60-1.10); GLUCOSE 236 MG/DL (70-104); SODIUM 137 MMOL/L (135-145); TOTAL CARBON DIOXIDE 26.5 MMOL/L (24-32); eGFR 69 ML/MIN
[2021-10-30 06:25] LABS: POTASSIUM 4.1 MMOL/L (3.5-5.1)
--- NOTE | 2021-10-30 06:41 | NUR ---
Patient in room ORTHO 4017. I have received report from JAG Calderon and had the opportunity to ask questions and assume patient care.
[2021-10-30] MEDS: gemfibrozil 600mg tablet PO SCH (07:08)
[2021-10-30] MEDS: lamoTRIgine 100mg tablet PO SCH ×2 (07:08→20:56)
[2021-10-30] MEDS: gabapentin 300mg capsule PO SCH ×2 (07:08→20:51)
[2021-10-30] MEDS: docusate sod 100mg capsule PO SCH ×2 (07:08→20:50)
[2021-10-30] MEDS: CARIPRAZINE 1.5 MG CAPSULE PO SCH (07:08)
[2021-10-30] MEDS: sertraline 50mg tablet PO SCH (07:08)
[2021-10-30] MEDS: clonazePAM 1mg tablet PO SCH ×2 (07:08→20:55)
[2021-10-30] MEDS: propranolol 40mg tablet PO SCH ×2 (07:08→20:55)
[2021-10-30] MEDS: divalproex sodium 500mg tablet.DR PO SCH ×2 (07:09→20:54)
[2021-10-30] MEDS: LACOSAMIDE 50 MG TABLET PO SCH ×2 (07:09→20:54)
[2021-10-30] MEDS: topiramate 25mg tablet PO SCH ×2 (07:09→20:55)
--- NOTE | 2021-10-30 08:08 | NUR ---
notified by pct tech patient having seizure mild shaking lasting approx 4 minutes. when seizure stopped patient able to open eyes to voice and answer questions. patient appears to be comfortably resting at this time. will continue to monitor.
[2021-10-30] MEDS: insulin Lispro (HumaLOG) vial - multi-dose SQ SCH ×4 (09:09→21:25)
[2021-10-30 11:33] VITALS: BP 132/79
[2021-10-30 18:00] VITALS: BP 129/80
--- NOTE | 2021-10-30 18:19 | NUR ---
Problems reprioritized. Patient report given, questions answered & plan of care reviewed with Melina Calderon.
[2021-10-30] MEDS: prazosin 5mg capsule PO SCH (20:54)
[2021-10-30] MEDS: insulin glargine (Lantus) pen - multi-dose SQ SCH (21:26)
[2021-10-30 22:00] VITALS: BP 121/70
--- NOTE | 2021-10-30 22:42 | NUR ---
Student Medication Administration: For this medication-pass time frame, all medication were reviewed, dispensed, administered and documented per hospital policy by Thomas TARANGO [facility].
--- NOTE | 2021-10-30 22:47 | NUR ---
Student documentation: I have reviewed interventions, assessments performed and documented by Thomas TARANGO [facility].
[2021-10-31 06:00] VITALS: BP 102/64
[2021-10-31 06:06] LABS: BASOPHILS % (AUTO) 0.6 % (0-1); EOSINOPHILS # (AUTO) 0.1 X10'3 (0-0.9); EOSINOPHILS % (AUTO) 1.1 % (0-6); HEMATOCRIT 38.6 % (42.0-52.0); HEMOGLOBIN 13.3 g/dl (14.0-17.9); LYMPHOCYTES # (AUTO) 1.8 X10'3 (1.1-4.8); LYMPHOCYTES % (AUTO) 38.7 % (21-51); MEAN CORPUSCULAR HEMOGLOBIN 31.5 PG (27.0-31.0); MEAN CORPUSCULAR HGB CONC 34.5 g/dL (33.0-36.5); MEAN CORPUSCULAR VOLUME 91.4 FL (78-98); MEAN PLATELET VOLUME 9.8 FL (7.4-10.4); MONOCYTES # (AUTO) 0.5 X10'3 (0-0.9); MONOCYTES % (AUTO) 9.8 % (2-12); NEUTROPHILS # (AUTO) 2.3 X10'3 (1.8-7.7); NEUTROPHILS % (AUTO) 49.8 % (42-75); PLATELET COUNT 179 X10'3 (140-440); RED BLOOD COUNT 4.22 X10'6 (4.70-6.10); RED CELL DISTRIBUTION WIDTH 13.4 % (11.5-14.5); WHITE BLOOD COUNT 4.6 X10'3 (4.5-11.0)
[2021-10-31 06:07] LABS: ALBUMIN 3.7 G/DL (3.4-5.0); ANION GAP 10 (8-16); BLOOD UREA NITROGEN 29 MG/DL (7-18); BUN/CREATININE RATIO 24.6 (5.4-32.0); CHLORIDE 102 MMOL/L (99-107); CREATININE 1.18 MG/DL (0.60-1.10); GLUCOSE 218 MG/DL (70-104); SODIUM 137 MMOL/L (135-145); TOTAL CARBON DIOXIDE 25.2 MMOL/L (24-32); eGFR 67 ML/MIN
[2021-10-31 06:08] LABS: POTASSIUM 3.9 MMOL/L (3.5-5.1)
--- NOTE | 2021-10-31 06:46 | NUR ---
Patient in room ORTHO 4011. I have received report from JAG Calderon and had the opportunity to ask questions and assume patient care.
[2021-10-31] MEDS: docusate sod 100mg capsule PO SCH ×2 (07:11→19:27)
[2021-10-31] MEDS: LACOSAMIDE 50 MG TABLET PO SCH ×2 (07:12→19:28)
[2021-10-31] MEDS: divalproex sodium 500mg tablet.DR PO SCH ×2 (07:12→21:17)
[2021-10-31] MEDS: gabapentin 300mg capsule PO SCH ×2 (07:12→19:27)
[2021-10-31] MEDS: gemfibrozil 600mg tablet PO SCH (07:13)
[2021-10-31] MEDS: topiramate 25mg tablet PO SCH ×2 (07:13→19:27)
[2021-10-31] MEDS: propranolol 40mg tablet PO SCH ×2 (07:14→19:27)
[2021-10-31] MEDS: clonazePAM 1mg tablet PO SCH ×2 (07:14→19:27)
[2021-10-31] MEDS: CARIPRAZINE 1.5 MG CAPSULE PO SCH (07:14)
[2021-10-31] MEDS: sertraline 50mg tablet PO SCH (07:14)
[2021-10-31] MEDS: lamoTRIgine 100mg tablet PO SCH ×2 (07:14→21:19)
[2021-10-31] MEDS: insulin Lispro (HumaLOG) vial - multi-dose SQ SCH ×3 (09:04→19:30)
[2021-10-31 11:00] VITALS: BP 130/87
--- NOTE | 2021-10-31 12:01 | NUR ---
Paged Dr. Harrison about patient falling and patient states he hit heas coming from bathroom.
--- NOTE | 2021-10-31 12:17 | NUR ---
Notified by other nursing staff patient had fall. Was found by another RN in prone position on floor. motion and time study teacher Debby present along with nursing students and RN who found patient. Patient alert and oriented but drowsy. Patient states he did hit his head and pointed to his left upper brow area. No injuries noted to face or head. Redness to left knee noted. Patient also stated he did feel lightheaded prior to fall. Patient assisted back to chair and then bed by PT. Reoriented and reminded patient to call light and instructed to use and wait for assistance up out of bed. Patient nodded and stated understands. Call light placed within patient's reach, bed low and locked, seizure precautions in place, bed alarm and tabs alarm on, non skid socks on. Dr. Harrison notified. BP 151/107, 90HR, 94 RA.
--- NOTE | 2021-10-31 12:17 | NUR ---
Message: [id number]- [place], E- fell unwitnessed. [facility] says hit head ANA brow bone area. no injuries to head or face noted. redness to left knee noted. PT able to assist back to bed. VS 151/107, 90, 94RA. - Jatin [id number] Transaction number: [id number]
--- NOTE | 2021-10-31 12:27 | NUR ---
Received call back from Dr Harrison new orders for head ct no contrast, left knee xray, strict fall precautions.
--- NOTE | 2021-10-31 12:33 | NUR ---
Patient's notified of patient's fall.
[2021-10-31 12:34] VITALS: BP 138/82
--- NOTE | 2021-10-31 13:49 | NUR ---
Patient down to CT
--- NOTE | 2021-10-31 16:35 | NUR ---
teleneuro monitor in room and ready.
--- NOTE | 2021-10-31 16:50 | NUR ---
patient in middle of teleneuro cons and stated "it stopped working." called back to tele neuro Dr. Baker will be notified to reconnect.
[2021-10-31 18:00] VITALS: BP 130/87
--- NOTE | 2021-10-31 18:43 | NUR ---
Gave report to Loretta RM.
[2021-10-31 19:52] LABS: CLARITY,URINE CLEAR (Clear); COLOR,URINE YELLOW (Yellow); GLUCOSE, URINE NEGATIVE (Neg); KETONES,URINE 15 mg/dl (Neg); LEUKOCYTE ESTERASE ,URINE NEGATIVE (Neg); NITRITES, URINE NEGATIVE (Neg); OCCULT BLOOD,URINE NEGATIVE (Neg); PROTEIN,URINE NEGATIVE (Neg); UROBILINOGEN,URINE 0.2 E.U/dL (0.2-1.0)
[2021-10-31 19:59] LABS: UA COLLECTION TYPE CLN CATCH MIDSTREAM
[2021-10-31 20:09] LABS: URINE AMPHETAMINE SCREEN NEGATIVE (Neg); URINE BARBITUATE SCREEN NEGATIVE (Neg); URINE BENZODIAZEPINES SCREEN POSITIVE (Neg); URINE CANNABINOID SCREEN NEGATIVE (Neg); URINE COCAINE SCREEN NEGATIVE (Neg); URINE METHADONE SCREEN NEGATIVE (Neg); URINE OPIATE SCREEN NEGATIVE (Neg); URINE PHENCYCLIDINE SCREEN NEGATIVE (Neg)
[2021-10-31] MEDS: prazosin 5mg capsule PO SCH (21:19)
[2021-10-31] MEDS: insulin glargine (Lantus) pen - multi-dose SQ SCH (21:25)
[2021-10-31 22:00] VITALS: BP 119/65
[2021-11-01 06:01] LABS: BASOPHILS % (AUTO) 0.6 % (0-1); EOSINOPHILS # (AUTO) 0.1 X10'3 (0-0.9); EOSINOPHILS % (AUTO) 1.3 % (0-6); HEMATOCRIT 37.7 % (42.0-52.0); HEMOGLOBIN 13.1 g/dl (14.0-17.9); LYMPHOCYTES # (AUTO) 1.7 X10'3 (1.1-4.8); LYMPHOCYTES % (AUTO) 40.7 % (21-51); MEAN CORPUSCULAR HEMOGLOBIN 31.5 PG (27.0-31.0); MEAN CORPUSCULAR HGB CONC 34.8 g/dL (33.0-36.5); MEAN CORPUSCULAR VOLUME 90.7 FL (78-98); MEAN PLATELET VOLUME 9.7 FL (7.4-10.4); MONOCYTES # (AUTO) 0.3 X10'3 (0-0.9); MONOCYTES % (AUTO) 7.6 % (2-12); NEUTROPHILS # (AUTO) 2.1 X10'3 (1.8-7.7); NEUTROPHILS % (AUTO) 49.8 % (42-75); PLATELET COUNT 160 X10'3 (140-440); RED BLOOD COUNT 4.16 X10'6 (4.70-6.10); RED CELL DISTRIBUTION WIDTH 13.6 % (11.5-14.5); WHITE BLOOD COUNT 4.3 X10'3 (4.5-11.0)
[2021-11-01 06:03] LABS: ALBUMIN 3.8 G/DL (3.4-5.0); ANION GAP 13 (8-16); BLOOD UREA NITROGEN 34 MG/DL (7-18); BUN/CREATININE RATIO 28.1 (5.4-32.0); CALCIUM 9.2 MG/DL (8.5-10.1); CHLORIDE 103 MMOL/L (99-107); CREATININE 1.21 MG/DL (0.60-1.10); GLUCOSE 187 MG/DL (70-104); POTASSIUM 3.9 MMOL/L (3.5-5.1); SODIUM 140 MMOL/L (135-145); TOTAL CARBON DIOXIDE 24.5 MMOL/L (24-32); eGFR 65 ML/MIN
--- NOTE | 2021-11-01 06:17 | NUR ---
Patient in room ORTHO 4011. I have received report from merle corona and had the opportunity to ask questions and assume patient care.
--- NOTE | 2021-11-01 06:20 | NUR ---
Problems reprioritized. Patient report given, questions answered & plan of care reviewed with Mirian RM. Addendum: 11/01/21 at 0620 by Loretta Paz RN Amended: Links added.
--- NOTE | 2021-11-01 06:55 | NUR ---
PAGED EEG RE: URIEL KENYON RM [id number]. EEG ORDERED. BANNER [id number] O/N
[2021-11-01] MEDS: docusate sod 100mg capsule PO SCH ×2 (08:46→20:49)
[2021-11-01] MEDS: propranolol 40mg tablet PO SCH ×2 (08:46→20:57)
[2021-11-01] MEDS: gemfibrozil 600mg tablet PO SCH (08:46)
[2021-11-01] MEDS: divalproex sodium 500mg tablet.DR PO SCH ×2 (08:46→20:48)
[2021-11-01] MEDS: clonazePAM 1mg tablet PO SCH ×2 (08:46→20:50)
[2021-11-01] MEDS: lamoTRIgine 100mg tablet PO SCH ×2 (08:47→20:49)
[2021-11-01] MEDS: sertraline 50mg tablet PO SCH (08:47)
[2021-11-01] MEDS: LACOSAMIDE 50 MG TABLET PO SCH ×2 (08:47→20:48)
[2021-11-01] MEDS: CARIPRAZINE 1.5 MG CAPSULE PO SCH (08:47)
[2021-11-01] MEDS: topiramate 25mg tablet PO SCH ×2 (08:47→20:48)
[2021-11-01] MEDS: gabapentin 300mg capsule PO SCH ×2 (08:47→20:48)
[2021-11-01] MEDS: insulin Lispro (HumaLOG) vial - multi-dose SQ SCH ×2 (08:58→18:41)
[2021-11-01 10:34] VITALS: BP 125/77
--- NOTE | 2021-11-01 10:53 | NUR ---
Initial: Pt admitted w/ seizure disorder with breakthrough seizures per EMR. Currently on Carb control diet w/ 100% intake of meals though only partially meeting est energy needs d/t restrictive nature of the diet. Will provide double protein BID to assist w/ meeting needs. LBM 10/30 receiving routine colace. Will continue to monitor. Recs; 1. Continue Carb control diet as tolerated 2. Double protein BIDBD 3. Bowel care per rx 4. Scaled wts Addendum: 11/01/21 at [address] Amended: Links added.
[2021-11-01 18:00] VITALS: BP 126/87
--- NOTE | 2021-11-01 18:28 | NUR ---
Problems reprioritized. Patient report given, questions answered & plan of care reviewed with NICO RM.
[2021-11-01] MEDS: prazosin 5mg capsule PO SCH (20:50)
[2021-11-01] MEDS: insulin glargine (Lantus) pen - multi-dose SQ SCH (21:09)
[2021-11-01] MEDS ORDERED: magnesium 4gm in 100ml NS 100 ML IV PRN (21:20)
[2021-11-01] MEDS ORDERED: potassium Cl 20 mEq SR tablet PO PRN ×2 (21:20)
[2021-11-01] MEDS ORDERED: magnesium Cl slow-release 64mg tablet PO PRN (21:20)
[2021-11-01] MEDS ORDERED: potassium CL 10mEq/100ml bag 100 ML IV PRN (21:20)
[2021-11-01 22:00] VITALS: BP 134/86
[2021-11-02 05:00] VITALS: BP 142/61
--- NOTE | 2021-11-02 06:16 | NUR ---
Problems reprioritized. Patient report given, questions answered & plan of care reviewed with Kirstie RM. Addendum: 11/02/21 at 0616 by Loretta Paz RN Amended: Links added.
[2021-11-02] MEDS ORDERED: heparin, porcine 5000 units/ml vial SQ SCH (08:00)
[2021-11-02] MEDS ORDERED: K and/or MAG REPLACEMENT MC SCH (08:00)
[2021-11-02] MEDS: insulin Lispro (HumaLOG) vial - multi-dose SQ SCH ×2 (09:01→14:08)
[2021-11-02] MEDS: docusate sod 100mg capsule PO SCH (09:05)
[2021-11-02] MEDS: divalproex sodium 500mg tablet.DR PO SCH (09:06)
[2021-11-02] MEDS: clonazePAM 1mg tablet PO SCH (09:07)
[2021-11-02] MEDS: lamoTRIgine 100mg tablet PO SCH (09:07)
[2021-11-02 09:08] LABS: BASOPHILS % (AUTO) 0.2 % (0-1); EOSINOPHILS # (AUTO) 0.1 X10'3 (0-0.9); EOSINOPHILS % (AUTO) 1.4 % (0-6); HEMATOCRIT 37.4 % (42.0-52.0); HEMOGLOBIN 12.7 g/dl (14.0-17.9); LYMPHOCYTES # (AUTO) 1.6 X10'3 (1.1-4.8); LYMPHOCYTES % (AUTO) 40.7 % (21-51); MEAN CORPUSCULAR HEMOGLOBIN 31.3 PG (27.0-31.0); MEAN PLATELET VOLUME 9.9 FL (7.4-10.4); MONOCYTES # (AUTO) 0.3 X10'3 (0-0.9); MONOCYTES % (AUTO) 7.5 % (2-12); NEUTROPHILS % (AUTO) 50.2 % (42-75); PLATELET COUNT 156 X10'3 (140-440); RED BLOOD COUNT 4.06 X10'6 (4.70-6.10); RED CELL DISTRIBUTION WIDTH 13.6 % (11.5-14.5); WHITE BLOOD COUNT 3.9 X10'3 (4.5-11.0)
[2021-11-02] MEDS: gemfibrozil 600mg tablet PO SCH (09:08)
[2021-11-02] MEDS: gabapentin 300mg capsule PO SCH (09:08)
[2021-11-02] MEDS: topiramate 25mg tablet PO SCH (09:09)
[2021-11-02] MEDS: LACOSAMIDE 50 MG TABLET PO SCH (09:10)
[2021-11-02] MEDS: CARIPRAZINE 1.5 MG CAPSULE PO SCH (09:11)
[2021-11-02] MEDS: sertraline 50mg tablet PO SCH (09:11)
[2021-11-02 09:16] LABS: ALBUMIN 3.7 G/DL (3.4-5.0); ANION GAP 12 (8-16); BLOOD UREA NITROGEN 30 MG/DL (7-18); BUN/CREATININE RATIO 26.5 (5.4-32.0); CALCIUM 8.8 MG/DL (8.5-10.1); CHLORIDE 103 MMOL/L (99-107); CREATININE 1.13 MG/DL (0.60-1.10); GLUCOSE 177 MG/DL (70-104); MAGNESIUM 1.9 MG/DL (1.5-2.4); PHOSPHORUS 4.6 MG/DL (2.3-4.5); POTASSIUM 3.7 MMOL/L (3.5-5.1); SODIUM 140 MMOL/L (135-145); TOTAL CARBON DIOXIDE 25.5 MMOL/L (24-32); eGFR 71 ML/MIN
[2021-11-02] MEDS: propranolol 40mg tablet PO SCH (09:22)
[2021-11-02 10:00] VITALS: BP 143/77
--- NOTE | 2021-11-02 12:48 | NUR ---
Message: akash Lange in [phone] Pt is asking when DC will be ready. Please call when able, rudy Thacker [phone]
--- NOTE | 2021-11-02 13:48 | NUR ---
Returned 's call re: luz marina time. Informed that orders from the MD are pending, and she'll be notified jennifer. She agreed.
== END 2021-11-02 15:00 | disposition home or self-care (01) | DRG 101 ==
LOC: ER 16:14 → ED HOLD 19:58 → EDBEDREQ 20:29 → ORTHO 4S 22:49
PROVIDERS: ADMIT Internal Medicine; ATTEND Internal Medicine
PROC: 4A10X4Z Monitoring of Central Nervous Electrical Activity, External Approach (ICD-10-PCS; principal; 2021-11-01)
DX: G40.802 Other epilepsy, not intractable, without status epilepticus (principal); E11.9 Type 2 diabetes mellitus without complications; F43.10 Post-traumatic stress disorder, unspecified; B19.20 Unspecified viral hepatitis C without hepatic coma; F32.A Depression, unspecified; E78.5 Hyperlipidemia, unspecified; F41.9 Anxiety disorder, unspecified; G89.29 Other chronic pain; E78.00 Pure hypercholesterolemia, unspecified; I10 Essential (primary) hypertension; Z87.891 Personal history of nicotine dependence; Z90.49 Acquired absence of other specified parts of digestive tract; Z79.899 Other long term (current) drug therapy; Z88.8 Allergy status to other drugs, medicaments and biological substances; Z79.4 Long term (current) use of insulin; W18.39XA Other fall on same level, initial encounter; Y93.89 Activity, other specified; Y92.231 Patient bathroom in hospital as the place of occurrence of the external cause; Y99.8 Other external cause status
CPT/HCPCS: 36415; 70450; 70544; 70547; 70551; 71045; 73560; 80048; 80053; 80164; 80305; 80320; 81003; 82550; 82948; 83036; 83605; 83735; 84100; 85025; 87081; 93005; 94760; 95816; 97116; 97161; 97530; 99285; G0378; J1644; J1815; J2060; J7030

== ENCOUNTER 2021-11-15 23:13 | Emergency (ER) | payer BC, MEDICAID ==
[~2021-11-15] VITALS: Ht 182.9 cm; Wt 104.5 kg
[~2021-11-15 23:13] MED LIST changes: -PRAZ2CAP2 PO; +SERT-434 PO
[2021-11-15 23:21] VITALS: BP 138/92
[2021-11-16 00:22] LABS: CLARITY,URINE CLEAR (Clear); COLOR,URINE YELLOW (Yellow); GLUCOSE, URINE >=1000 mg/dl (Neg); KETONES,URINE NEGATIVE (Neg); LEUKOCYTE ESTERASE ,URINE NEGATIVE (Neg); NITRITES, URINE NEGATIVE (Neg); OCCULT BLOOD,URINE NEGATIVE (Neg); PH,URINE 6.5 (4.8-8.0); PROTEIN,URINE NEGATIVE (Neg); UROBILINOGEN,URINE 0.2 E.U/dL (0.2-1.0)
[2021-11-16 00:25] LABS: BASOPHILS % (AUTO) 0.3 % (0-1); EOSINOPHILS # (AUTO) 0.1 X10'3 (0-0.9); EOSINOPHILS % (AUTO) 1.6 % (0-6); HEMATOCRIT 34.5 % (42.0-52.0); HEMOGLOBIN 12.3 g/dl (14.0-17.9); LYMPHOCYTES # (AUTO) 1.3 X10'3 (1.1-4.8); LYMPHOCYTES % (AUTO) 38.8 % (21-51); MEAN CORPUSCULAR HEMOGLOBIN 32.4 PG (27.0-31.0); MEAN CORPUSCULAR HGB CONC 35.5 g/dL (33.0-36.5); MEAN CORPUSCULAR VOLUME 91.2 FL (78-98); MEAN PLATELET VOLUME 9.3 FL (7.4-10.4); MONOCYTES # (AUTO) 0.3 X10'3 (0-0.9); MONOCYTES % (AUTO) 8.5 % (2-12); NEUTROPHILS # (AUTO) 1.7 X10'3 (1.8-7.7); NEUTROPHILS % (AUTO) 50.8 % (42-75); PLATELET COUNT 175 X10'3 (140-440); RED BLOOD COUNT 3.78 X10'6 (4.70-6.10); RED CELL DISTRIBUTION WIDTH 13.6 % (11.5-14.5); WHITE BLOOD COUNT 3.4 X10'3 (4.5-11.0)
[2021-11-16 00:27] LABS: UA COLLECTION TYPE URINAL
[2021-11-16 00:28] LABS: BACTERIA,URINE NONE SEEN /HPF (Neg); RBC,URINE NONE SEEN /HPF (0-2); SQUAMOUS EPITHELIAL CELL,UR FEW /LPF (FEW); WBC,URINE NONE SEEN /HPF (0-4)
[2021-11-16 00:42] LABS: ALBUMIN 3.7 G/DL (3.4-5.0); ALBUMIN/GLOBULIN RATIO 1.1 (1.1-1.5); ALKALINE PHOSPHATASE 72 IU/L (46-116); ANION GAP 15 (8-16); BILIRUBIN,TOTAL 0.3 MG/DL (0.1-1.0); BLOOD UREA NITROGEN 17 MG/DL (7-18); BUN/CREATININE RATIO 13.3 (5.4-32.0); CALCIUM 8.5 MG/DL (8.5-10.1); CHLORIDE 99 MMOL/L (99-107); CREATININE 1.28 MG/DL (0.60-1.10); SODIUM 136 MMOL/L (135-145); TOTAL CARBON DIOXIDE 21.6 MMOL/L (24-32); TOTAL PROTEIN 7.1 G/DL (6.4-8.2); eGFR 61 ML/MIN
[2021-11-16 01:07] LABS: ALANINE AMINOTRANSFERASE 28 U/L (12-78); ASPARTATE AMINO TRANSFERASE 11 U/L (10-37)
[2021-11-16 01:20] LABS: VALPROATE 36 UG/ML (50-100)
[2021-11-16 01:24] LABS: GLUCOSE 451 MG/DL (70-104)
== END 2021-11-16 01:34 | disposition home or self-care (01) ==
LOC: ER 23:14
DX: G40.909 Epilepsy, unspecified, not intractable, without status epilepticus (principal); I11.9 Hypertensive heart disease without heart failure; E78.00 Pure hypercholesterolemia, unspecified; E11.9 Type 2 diabetes mellitus without complications; G89.29 Other chronic pain; F41.9 Anxiety disorder, unspecified; Z90.49 Acquired absence of other specified parts of digestive tract; Z79.899 Other long term (current) drug therapy; Z88.1 Allergy status to other antibiotic agents; Z79.82 Long term (current) use of aspirin
CPT/HCPCS: 36415; 80053; 80164; 81001; 85025; 99283

== ENCOUNTER 2022-03-24 15:51 | Emergency (ER) | payer BC, MEDICAID ==
[~2022-03-24] VITALS: Ht 180.3 cm; Wt 104.0 kg
[2022-03-24 16:13] VITALS: BP 140/84
== END 2022-03-24 21:01 | disposition left against medical advice (07) ==
LOC: ER 15:51
DX: K62.5 Hemorrhage of anus and rectum (principal); Z53.21 Procedure and treatment not carried out due to patient leaving prior to being seen by health care provider

== ENCOUNTER 2022-06-18 19:46 | Emergency (ER) | payer BC, MEDICAID | END 2022-06-18 21:13 | disposition left against medical advice (07) | LOC: ER 19:47 | DX: G40.909 Epilepsy, unspecified, not intractable, without status epilepticus (principal); E78.00 Pure hypercholesterolemia, unspecified; I10 Essential (primary) hypertension; E11.9 Type 2 diabetes mellitus without complications; G89.29 Other chronic pain; F41.9 Anxiety disorder, unspecified; Z90.49 Acquired absence of other specified parts of digestive tract; Z98.890 Other specified postprocedural states; Z88.8 Allergy status to other drugs, medicaments and biological substances; Z79.899 Other long term (current) drug therapy; Z79.4 Long term (current) use of insulin | CPT/HCPCS: 99283 ==

== ENCOUNTER 2022-11-23 11:28 | Inpatient (IN) | payer BC, MEDICAID ==
[~2022-11-23] VITALS: Ht 180.3 cm; Wt 111.4 kg
[2022-11-23] VITALS (25 sets, daily range): BP systolic 131–163; BP diastolic 71–137; PULSE 62–90; RESP 12–18; O2SAT 93–98
[~2022-11-23 11:28] MED LIST changes: +sod chloride 0.9% 10ml flush syringe IV ONE; +tenecteplase 50mg kit IV ONE
[2022-11-23] MEDS ORDERED: iohexol 350MG/ML 100ml bottle IV ONE (11:33)
--- NOTE | 2022-11-23 11:38 | NUR ---
Accompanying patient to CT, MD with patient doing assessment en route.
--- NOTE | 2022-11-23 11:42 | NUR ---
RECEIVED REPORT FROM RUY RMFAILURE ANALYSIS TECHNICIAN ASSUMING CARE OF PT PT CURRENTLY IN CT
[2022-11-23] MEDS ORDERED: insulin regular, human 10 units/0.1 ml syringe IV ONE (11:45)
[2022-11-23] MEDS ORDERED: ringers solution, lacted 1,000 ML IV ONE (11:45)
--- NOTE | 2022-11-23 12:09 | NUR ---
NEURO CONSULT COMPLETED STROKE ALERT CALLED tnkASE IV ADMIN BY STROKE COODINATOR RN
[2022-11-23 12:19] LABS: APTT 30 SECONDS (22-32)
[2022-11-23 12:22] LABS: BASOPHILS % (AUTO) 0.8 % (0-1); EOSINOPHILS # (AUTO) 0.1 X10'3 (0-0.9); EOSINOPHILS % (AUTO) 1.7 % (0-6); HEMATOCRIT 38.2 % (42.0-52.0); HEMOGLOBIN 13.6 g/dl (14.0-17.9); LYMPHOCYTES # (AUTO) 1.6 X10'3 (1.1-4.8); LYMPHOCYTES % (AUTO) 30.3 % (21-51); MEAN CORPUSCULAR HEMOGLOBIN 32.9 PG (27.0-31.0); MEAN CORPUSCULAR HGB CONC 35.6 g/dL (33.0-36.5); MEAN CORPUSCULAR VOLUME 92.5 FL (78-98); MEAN PLATELET VOLUME 9.3 FL (7.4-10.4); MONOCYTES # (AUTO) 0.4 X10'3 (0-0.9); MONOCYTES % (AUTO) 8.2 % (2-12); NEUTROPHILS # (AUTO) 3.2 X10'3 (1.8-7.7); PLATELET COUNT 183 X10'3 (140-440); RED BLOOD COUNT 4.12 X10'6 (4.70-6.10); RED CELL DISTRIBUTION WIDTH 13.3 % (11.5-14.5); WHITE BLOOD COUNT 5.4 X10'3 (4.5-11.0)
[2022-11-23] MEDS ORDERED: tenecteplase-TNKase inj 10 ML IV ONE (12:35)
[2022-11-23 12:37] LABS: ALBUMIN 3.4 G/DL (3.4-5.0); ALKALINE PHOSPHATASE 76 IU/L (46-116); BILIRUBIN,TOTAL 0.5 MG/DL (0.1-1.0); BLOOD UREA NITROGEN 13 MG/DL (7-18); BUN/CREATININE RATIO 11.7 (10.0-20.0); CALCIUM 8.5 MG/DL (8.5-10.1); CHLORIDE 95 MMOL/L (99-107); CREATINE KINASE MB 3.4 ng/ml (0.3-3.6); CREATININE 1.11 MG/DL (0.60-1.10); TOTAL CARBON DIOXIDE 25.4 MMOL/L (24-32); TOTAL PROTEIN 6.7 G/DL (6.4-8.2); eCRCL 90 ML/MIN; eGFR 72 ML/MIN
[2022-11-23 12:50] LABS: ALANINE AMINOTRANSFERASE 29 U/L (12-78)
[2022-11-23 12:53] LABS: ANION GAP 14 (8-16); CKMB RELATIVE INDEX 1.5 RATIO (0-2.5); CREATINE KINASE 222 U/L (39-308); POTASSIUM 3.6 MMOL/L (3.5-5.1); SODIUM 134 MMOL/L (135-145)
[2022-11-23 13:03] LABS: GLUCOSE 439 MG/DL (70-104)
[2022-11-23 13:20] LABS: ASPARTATE AMINO TRANSFERASE 24 U/L (10-37)
--- NOTE | 2022-11-23 14:00 | NUR ---
Patient in room CICU 2009. I have received report from Meghana RM and had the opportunity to ask questions and assume patient care.
[2022-11-23] MEDS: normal saline 1000ml 1,000 ML IV SCH ×3 (14:30→21:08)
[2022-11-23] MEDS ORDERED: PERFLUTREN PROTEIN-A MICROSPHR (Optison) 0.22 MG/ML 3ML VIAL IV ONE (14:30)
[2022-11-23] MEDS ORDERED: acetaminophen 325mg tablet PO PRN ×2 (14:50)
[2022-11-23] MEDS ORDERED: morphine 4 MG/ML inj SYRINge IV PRN (14:50)
[2022-11-23] MEDS ORDERED: DEXTROSE 15 GM of carb/4 tabs (each vial/BOTTLE has 4 tablets) PO PRN ×2 (14:50)
[2022-11-23] MEDS ORDERED: ondansetron/PF 4mg/2ml inj IV PRN (14:50)
[2022-11-23] MEDS ORDERED: dextrose 50%-water 50ml dispensing syringe IV PRN ×2 (14:50)
[2022-11-23] MEDS ORDERED: MESSAGE TO PHARMACY PO ONE (14:50)
[2022-11-23] MEDS ORDERED: magnesium hydroxide 30ml (MOM) UD suspension PO PRN (14:50)
[2022-11-23] MEDS ORDERED: glucagon, human recombinant 1mg kit SUBCUT PRN (14:50)
[2022-11-23] MEDS ORDERED: morphine 2 MG/ML inj. syringe IV PRN (14:50)
[2022-11-23] MEDS ORDERED: nitroGLYCERIN 0.4mg SUBLingual tab SL PRN (15:10)
[2022-11-23] MEDS ORDERED: HYDR50CA5 PO (15:28)
[2022-11-23] MEDS ORDERED: ICOS1CAP PO (15:28)
[2022-11-23 15:44] LABS: ACETONE NEGATIVE (NEGATIVE)
[2022-11-23 15:52] LABS: HEMOGLOBIN A1C 8.5 % (4.5-6.2)
[2022-11-23 15:53] LABS: BILIRUBIN,URINE NEGATIVE (Neg); CLARITY,URINE CLEAR (Clear); COLOR,URINE YELLOW (Yellow); GLUCOSE, URINE >=1000 mg/dl (Neg); KETONES,URINE TRACE mg/dl (Neg); LEUKOCYTE ESTERASE ,URINE NEGATIVE (Neg); NITRITES, URINE NEGATIVE (Neg); OCCULT BLOOD,URINE NEGATIVE (Neg); PH,URINE 6.5 (4.8-8.0); PROTEIN,URINE NEGATIVE (Neg); UROBILINOGEN,URINE 0.2 E.U/dL (0.2-1.0)
[2022-11-23 15:54] LABS: UA COLLECTION TYPE NON-SPECIFIED
[2022-11-23 16:11] LABS: ABG BASE EXCESS -1.5 mmol/L (-2.0-2.0); ABG HCO3 23.2 mmol/L (22.0-26.0); ABG OXYGEN SATURATION 97.3 % (94-97); ABG PH (T) 7.392 (7.340-7.440); ALLEN'S TEST POSITIVE; FCOHb 1.3 % (0.0-3.9); FHHb 2.7 % (0.0-5.0); FMetHb 0.3 % (0.0-1.5); FO2Hb 95.7 % (94-97); MODE ROOM AIR; TOTAL HEMOGLOBIN 14.1 G/dl (14.0-17.9)
[2022-11-23 16:11] LABS: SQUAMOUS EPITHELIAL CELL,UR FEW /LPF (FEW)
[2022-11-23 16:13] LABS: BACTERIA,URINE NONE SEEN /HPF (Neg); RBC,URINE 0-2 /HPF (0-2); WBC,URINE 0-4 /HPF (0-4)
[2022-11-23 16:27] LABS: CHOL/HDL RATIO 11.4 (0.00-4.99); CHOLESTEROL 284 MG/DL (0-200); HDL CHOLESTEROL 25 MG/DL (35-60); LDL CHOLESTEROL 53 MG/DL (50-100)
[2022-11-23 17:00] LABS: TRIGLYCERIDES 2250 MG/DL (20-135)
[2022-11-23] MEDS ORDERED: INSULIN LISPRO 5 UNIT SQ SCH (17:30)
--- NOTE | 2022-11-23 18:12 | NUR ---
Problems reprioritized. Patient report given, questions answered & plan of care reviewed with Jessi RM.
--- NOTE | 2022-11-23 18:15 | NUR ---
Patient in room CICU 2009. I have received report from Thi RM and had the opportunity to ask questions and assume patient care.
[2022-11-23] MEDS: insulin Lispro (HumaLOG) vial - multi-dose SQ SCH (18:42)
[2022-11-23] MEDS ORDERED: non-formulary drug (Glipizide 1 TAB) PO SCH (20:00)
[2022-11-23] MEDS ORDERED: clonazePAM 1mg tablet PO SCH (20:00)
[2022-11-23] MEDS ORDERED: PROPRANOLOL HCL PO SCH (20:00)
[2022-11-23] MEDS: gabapentin 300mg capsule PO SCH (20:09)
[2022-11-23] MEDS: lamoTRIgine 100mg tablet PO SCH (20:09)
[2022-11-23] MEDS ORDERED: prazosin 5mg capsule PO SCH (21:00)
[2022-11-23] MEDS ORDERED: CARIPRAZINE 1.5 MG CAPSULE PO SCH (21:00)
[2022-11-23] MEDS ORDERED: divalproex sodium 500mg tablet.DR PO SCH (21:00)
[2022-11-23] MEDS ORDERED: insulin glargine (Lantus) pen - multi-dose SQ SCH ×2 (21:00)
[2022-11-23] MEDS: LACOSAMIDE 50 MG TABLET PO SCH (21:00)
[2022-11-24] VITALS (21 sets, daily range): BP systolic 107–158; BP diastolic 70–101; PULSE 68–91; RESP 10–16; TEMP 98.5; O2SAT 93–99
[2022-11-24] MEDS: normal saline 1000ml 1,000 ML IV SCH ×2 (05:08→06:50)
--- NOTE | 2022-11-24 06:19 | NUR ---
Problems reprioritized. Patient report given, questions answered & plan of care reviewed with Meghana RM.
[2022-11-24 06:28] LABS: BASOPHILS # (AUTO) 0.1 X10'3 (0-0.2); BASOPHILS % (AUTO) 1.3 % (0-1); EOSINOPHILS # (AUTO) 0.1 X10'3 (0-0.9); EOSINOPHILS % (AUTO) 2.3 % (0-6); HEMATOCRIT 39.9 % (42.0-52.0); HEMOGLOBIN 13.9 g/dl (14.0-17.9); LYMPHOCYTES # (AUTO) 2.3 X10'3 (1.1-4.8); LYMPHOCYTES % (AUTO) 39.2 % (21-51); MEAN CORPUSCULAR HEMOGLOBIN 32.1 PG (27.0-31.0); MEAN CORPUSCULAR HGB CONC 34.8 g/dL (33.0-36.5); MEAN CORPUSCULAR VOLUME 92.3 FL (78-98); MEAN PLATELET VOLUME 9.7 FL (7.4-10.4); MONOCYTES # (AUTO) 0.4 X10'3 (0-0.9); MONOCYTES % (AUTO) 7.5 % (2-12); NEUTROPHILS % (AUTO) 49.7 % (42-75); PLATELET COUNT 180 X10'3 (140-440); RED BLOOD COUNT 4.32 X10'6 (4.70-6.10); RED CELL DISTRIBUTION WIDTH 13.3 % (11.5-14.5)
[2022-11-24 07:02] LABS: ALBUMIN 3.3 G/DL (3.4-5.0); ALKALINE PHOSPHATASE 72 IU/L (46-116); ANION GAP 13 (8-16); BILIRUBIN,TOTAL 0.4 MG/DL (0.1-1.0); BLOOD UREA NITROGEN 11 MG/DL (7-18); BUN/CREATININE RATIO 12.8 (10.0-20.0); CALCIUM 8.5 MG/DL (8.5-10.1); CHLORIDE 102 MMOL/L (99-107); CREATININE 0.86 MG/DL (0.60-1.10); SODIUM 138 MMOL/L (135-145); TOTAL CARBON DIOXIDE 23.2 MMOL/L (24-32); TOTAL PROTEIN 6.7 G/DL (6.4-8.2); eCRCL 117 ML/MIN; eGFR > 90 ML/MIN
[2022-11-24 07:26] LABS: GLUCOSE 189 MG/DL (70-104); POTASSIUM 3.7 MMOL/L (3.5-5.1)
[2022-11-24] MEDS: lamoTRIgine 100mg tablet PO SCH (07:54)
[2022-11-24] MEDS: gabapentin 300mg capsule PO SCH (07:54)
[2022-11-24 07:55] LABS: ASPARTATE AMINO TRANSFERASE 37 U/L (10-37)
[2022-11-24] MEDS ORDERED: gemfibrozil 600mg tablet PO SCH (08:00)
[2022-11-24] MEDS ORDERED: divalproex sodium 500mg tablet.DR PO SCH (08:00)
[2022-11-24] MEDS ORDERED: non-formulary drug (Sertraline HCl 2 TAB) PO SCH (08:00)
[2022-11-24] MEDS: insulin Lispro (HumaLOG) vial - multi-dose SQ SCH ×2 (08:01→14:07)
[2022-11-24] MEDS: LACOSAMIDE 50 MG TABLET PO SCH (08:35)
[2022-11-24 09:28] LABS: ALANINE AMINOTRANSFERASE 28 U/L (12-78)
[2022-11-24] MEDS ORDERED: fenofibrate 48mg tablet PO STA (11:09)
--- NOTE | 2022-11-24 14:29 | NUR ---
DM Consult: Pt admit DX acute CVA w/ L facial droop, slow speech and an ataxic gait now w/ normal speech per EMR. Hx DM A1C 8.5%, TG 2250, Chol 284, and HDL 25 per EMR. Pt seen by RD at bedside for written/verbal DM/heart healthy diet eds w/ RD contact information provided. Pt reports checks Glu routinely 3-4 times/day, takes short acting insulin TID, basal insulin once daily, and last A1C 10.9%. Pt reports previously ate out frequently w/ fast food though has been making lifestyle changes cooking at home more eating lower fat food products and limiting higher fat/added sugar foods. Pt declines nutrition questions/concerns at this time. RD encouraged pt to contact dietitian's office if further nutrition questions/concerns. Addendum: 11/24/22 at [address] Amended: Links added.
[2022-11-24] MEDS ORDERED: GEMF600T PO (15:15)
[2022-11-24] MEDS ORDERED: PRED10TA PO (15:15)
[2022-11-24] MEDS ORDERED: VALA500T41 PO (15:15)
[2022-11-24] MEDS ORDERED: ASPI81TA30 PO (15:15)
--- NOTE | 2022-11-24 15:55 | NUR ---
Discharged to care of his . Instructions to set an appointment with his primary care provider for one week. Written Discharge instructions to include new medications, follow up care, and dietary plans for low fat diet. Pt. is steady and oriented to his own ability. All belongings are with Pt. at time of discharge. ( cell phone with surgical consultant, clothing, shoes )
[2022-11-25] MEDS ORDERED: fenofibrate 48mg tablet PO SCH (08:30)
== END 2022-11-24 18:39 | disposition home or self-care (01) | DRG 65 ==
LOC: ER 11:29 → CICU 2S 14:36
PROVIDERS: ADMIT Internal Medicine Critical Care Medicine; ATTEND Internal Medicine Critical Care Medicine
PROC: B3251ZZ Computerized Tomography (CT Scan) of Bilateral Common Carotid Arteries using Low Osmolar Contrast (ICD-10-PCS; principal; 2022-11-23)
PROC: B32G1ZZ Computerized Tomography (CT Scan) of Bilateral Vertebral Arteries using Low Osmolar Contrast (ICD-10-PCS; 2022-11-23)
PROC: B32R1ZZ Computerized Tomography (CT Scan) of Intracranial Arteries using Low Osmolar Contrast (ICD-10-PCS; 2022-11-23)
PROC: B3281ZZ Computerized Tomography (CT Scan) of Bilateral Internal Carotid Arteries using Low Osmolar Contrast (ICD-10-PCS; 2022-11-23)
DX: I63.9 Cerebral infarction, unspecified (principal); E87.20 Acidosis, unspecified; E11.65 Type 2 diabetes mellitus with hyperglycemia; E78.00 Pure hypercholesterolemia, unspecified; F41.9 Anxiety disorder, unspecified; I10 Essential (primary) hypertension; G40.909 Epilepsy, unspecified, not intractable, without status epilepticus; G89.29 Other chronic pain; R26.0 Ataxic gait; F17.200 Nicotine dependence, unspecified, uncomplicated; F32.A Depression, unspecified; G47.33 Obstructive sleep apnea (adult) (pediatric); F20.9 Schizophrenia, unspecified; Z88.8 Allergy status to other drugs, medicaments and biological substances; Z79.899 Other long term (current) drug therapy; Z90.49 Acquired absence of other specified parts of digestive tract; Z79.4 Long term (current) use of insulin; Z83.3 Family history of diabetes mellitus; R29.704 NIHSS score 4; G51.0 Bell's palsy
CPT/HCPCS: 36415; 36600; 70450; 70496; 70498; 70551; 71045; 80053; 80061; 81001; 82009; 82550; 82553; 82803; 82948; 83036; 84484; 85018; 85025; 85610; 85730; 87081; 93306; 97116; 97161; 97530; 99285; A6213; G0378; J1815; J3101; J3490; J7030; J7120; Q9967

== ENCOUNTER 2023-02-14 14:02 | Emergency (ER) | payer BC, MEDICAID ==
[~2023-02-14] VITALS: Ht 180.3 cm; Wt 106.2 kg
[~2023-02-14 14:02] MED LIST changes: -ALBU8HFA IH; -CLON-568 PO; +GEMF600T PO; -GEMF600T89 PO; -GLIP10TA11 PO; +HYDR50CA5 PO; +ICOS1CAP PO; +PRED10TA PO; -PROP20TA6 PO; -SERT-434 PO; -TOPI25TA49 PO; +VALA500T41 PO; -sod chloride 0.9% 10ml flush syringe IV ONE; -tenecteplase 50mg kit IV ONE
[2023-02-14] MEDS ORDERED: oxyCODONE/APAP 5-325mg tablet PO ONE (14:05)
[2023-02-14 15:28] VITALS: BP 174/106; PULSE 78; RESP 16; TEMP 98.2; O2SAT 98
== END 2023-02-14 15:31 | disposition home or self-care (01) ==
LOC: ER 14:03
DX: M25.552 Pain in left hip (principal); G89.29 Other chronic pain; M19.90 Unspecified osteoarthritis, unspecified site; E78.00 Pure hypercholesterolemia, unspecified; I10 Essential (primary) hypertension; E11.9 Type 2 diabetes mellitus without complications; Z90.49 Acquired absence of other specified parts of digestive tract; Z98.890 Other specified postprocedural states; Z79.2 Long term (current) use of antibiotics; Z79.899 Other long term (current) drug therapy; Z88.8 Allergy status to other drugs, medicaments and biological substances
CPT/HCPCS: 72192; 99284

== ENCOUNTER 2023-03-27 03:40 | Emergency (ER) | payer MEDICARE, MEDICAID ==
[~2023-03-27] VITALS: Ht 180.3 cm; Wt 99.5 kg
[2023-03-27 03:43] VITALS: TEMP 98.3
[2023-03-27] MEDS ORDERED: bisacodyl 5mg tablet.DR PO ONE (04:20)
[2023-03-27] MEDS ORDERED: acetaminophen 325mg tablet PO ONE (04:20)
[2023-03-27] MEDS ORDERED: ketorolac trometh inj. 60 MG/2 ML VIAL IM ONE (04:20)
[2023-03-27] MEDS ORDERED: LIDOcaine/PRILOcaine 5gm cream TP ONE (04:20)
[2023-03-27] MEDS ORDERED: IBUP-1984 PO (04:23)
[2023-03-27] MEDS ORDERED: DOCU-171 PO (04:23)
[2023-03-27] MEDS ORDERED: HYDR30CR79 TOP (04:23)
[2023-03-27] MEDS ORDERED: ACET-1025 PO (04:23)
[2023-03-27] MEDS ORDERED: LIDO30CR TOP (04:23)
[2023-03-27 04:30] VITALS: BP 140/87; PULSE 86; O2SAT 95
[2023-03-27 05:02] VITALS: RESP 17
== END 2023-03-27 05:17 | disposition home or self-care (01) ==
LOC: ER 03:41
DX: K64.9 Unspecified hemorrhoids (principal); I10 Essential (primary) hypertension; E11.9 Type 2 diabetes mellitus without complications; F41.9 Anxiety disorder, unspecified; E78.00 Pure hypercholesterolemia, unspecified
CPT/HCPCS: 96372; 99284; J1885

== ENCOUNTER 2023-03-30 16:38 | Emergency (ER) | payer MEDICARE, MEDICAID ==
[~2023-03-30 16:38] MED LIST changes: +ACET-1025 PO; +DOCU-171 PO; +HYDR30CR79 TOP; +IBUP-1984 PO; +LIDO30CR TOP
== END 2023-03-30 18:55 | disposition left against medical advice (07) ==
LOC: ER 16:38
DX: K62.89 Other specified diseases of anus and rectum (principal); Z53.21 Procedure and treatment not carried out due to patient leaving prior to being seen by health care provider

== ENCOUNTER 2023-09-28 01:06 | Emergency (ER) | payer MEDICARE, MEDICAID ==
[~2023-09-28] VITALS: Ht 180.3 cm; Wt 95.0 kg
[~2023-09-28 01:06] MED LIST changes: -ACET-1025 PO; -IBUP-1984 PO
[2023-09-28 01:54] LABS: BASOPHILS % (AUTO) 0.6 % (0-1); EOSINOPHILS # (AUTO) 0.1 X10'3 (0-0.9); EOSINOPHILS % (AUTO) 2.1 % (0-6); HEMATOCRIT 39.7 % (42.0-52.0); HEMOGLOBIN 13.7 g/dl (14.0-17.9); LYMPHOCYTES # (AUTO) 1.7 X10'3 (1.1-4.8); LYMPHOCYTES % (AUTO) 41.7 % (21-51); MEAN CORPUSCULAR HEMOGLOBIN 31.8 PG (27.0-31.0); MEAN CORPUSCULAR HGB CONC 34.4 g/dL (33.0-36.5); MEAN CORPUSCULAR VOLUME 92.3 FL (78-98); MEAN PLATELET VOLUME 9.6 FL (7.4-10.4); MONOCYTES # (AUTO) 0.4 X10'3 (0-0.9); MONOCYTES % (AUTO) 9.1 % (2-12); NEUTROPHILS # (AUTO) 1.9 X10'3 (1.8-7.7); NEUTROPHILS % (AUTO) 46.5 % (42-75); PLATELET COUNT 190 X10'3 (140-440); RED CELL DISTRIBUTION WIDTH 13.2 % (11.5-14.5)
[2023-09-28 02:02] LABS: ALANINE AMINOTRANSFERASE 48 U/L (12-78); ALBUMIN 3.9 G/DL (3.4-5.0); ALKALINE PHOSPHATASE 105 IU/L (46-116); ANION GAP 13 (8-16); ASPARTATE AMINO TRANSFERASE 29 U/L (10-37); BILIRUBIN,TOTAL 0.5 MG/DL (0.1-1.0); BLOOD UREA NITROGEN 14 MG/DL (7-18); BUN/CREATININE RATIO 14.1 (10.0-20.0); CALCIUM 9.2 MG/DL (8.5-10.1); CHLORIDE 101 MMOL/L (99-107); CREATININE 0.99 MG/DL (0.60-1.10); GLUCOSE 246 MG/DL (70-104); LIPASE 85 U/L (16-77); POTASSIUM 3.9 MMOL/L (3.5-5.1); SODIUM 141 MMOL/L (135-145); TOTAL CARBON DIOXIDE 27.5 MMOL/L (24-32); TOTAL PROTEIN 7.9 G/DL (6.4-8.2); eCRCL 100 ML/MIN; eGFR 82 ML/MIN
[2023-09-28 02:11] LABS: BILIRUBIN,URINE SMALL (Neg); CLARITY,URINE CLEAR (Clear); COLOR,URINE YELLOW (Yellow); GLUCOSE, URINE NEGATIVE (Neg); KETONES,URINE TRACE mg/dl (Neg); LEUKOCYTE ESTERASE ,URINE NEGATIVE (Neg); NITRITES, URINE NEGATIVE (Neg); OCCULT BLOOD,URINE NEGATIVE (Neg); PROTEIN,URINE 30 mg/dl (Neg)
[2023-09-28] MEDS ORDERED: NYSPWD TP (02:11)
[2023-09-28 02:15] LABS: MUCUS STRANDS FEW /LPF (Neg); SQUAMOUS EPITHELIAL CELL,UR FEW /LPF (FEW); UA COLLECTION TYPE CLN CATCH MIDSTREAM
[2023-09-28 02:16] LABS: BACTERIA,URINE FEW /HPF (Neg); RBC,URINE 0-2 /HPF (0-2); WBC,URINE 0-4 /HPF (0-4)
[2023-09-28 02:40] VITALS: BP 134/102; PULSE 86; RESP 14; TEMP 98.4; O2SAT 97
== END 2023-09-28 02:48 | disposition home or self-care (01) ==
LOC: ER 01:08
DX: B35.9 Dermatophytosis, unspecified (principal); E78.00 Pure hypercholesterolemia, unspecified; I10 Essential (primary) hypertension; E11.9 Type 2 diabetes mellitus without complications; M19.90 Unspecified osteoarthritis, unspecified site; Z88.7 Allergy status to serum and vaccine; Z88.8 Allergy status to other drugs, medicaments and biological substances; Z79.899 Other long term (current) drug therapy; Z79.1 Long term (current) use of non-steroidal anti-inflammatories (NSAID); Z79.4 Long term (current) use of insulin
CPT/HCPCS: 36415; 80053; 81001; 83690; 85025; 99283

== ENCOUNTER 2024-10-25 00:46 | Emergency (ER) | payer MEDICARE, MEDICAID ==
[~2024-10-25] VITALS: Ht 180.3 cm; Wt 91.8 kg
[~2024-10-25 00:46] MED LIST changes: +DIVA-112 PO; +DIVA-134 PO; -DIVA-52 PO; -DIVA-76 PO; +NYSPWD TP
[2024-10-25 01:25] LABS: TOTAL CARBON DIOXIDE 20.6 MMOL/L (24-32)
[2024-10-25 01:50] LABS: CREATININE 0.91 MG/DL (0.60-1.10); eCRCL 108 ML/MIN; eGFR 90 ML/MIN
[2024-10-25 02:01] LABS: MEAN PLATELET VOLUME 10.5 FL (7.4-10.4); RED CELL DISTRIBUTION WIDTH 13.4 % (11.5-14.5)
[2024-10-25 02:36] LABS: LEUKOCYTE ESTERASE ,URINE NEGATIVE (Neg); NITRITES, URINE NEGATIVE (Neg); OCCULT BLOOD,URINE NEGATIVE (Neg)
[2024-10-25 02:43] LABS: UA COLLECTION TYPE CLN CATCH MIDSTREAM
[2024-10-25 02:45] LABS: SQUAMOUS EPITHELIAL CELL,UR FEW /LPF (FEW)
[2024-10-25 03:03] LABS: URINE AMPHETAMINE SCREEN NEGATIVE (Neg); URINE BARBITUATE SCREEN NEGATIVE (Neg); URINE BENZODIAZEPINES SCREEN NEGATIVE (Neg); URINE CANNABINOID SCREEN NEGATIVE (Neg); URINE COCAINE SCREEN NEGATIVE (Neg); URINE METHADONE SCREEN NEGATIVE (Neg); URINE OPIATE SCREEN NEGATIVE (Neg); URINE PHENCYCLIDINE SCREEN NEGATIVE (Neg)
[2024-10-25] MEDS ORDERED: iohexol 300mg/ml 100ml inj. ONE (03:30)
[2024-10-25 04:27] VITALS: BP 125/72; PULSE 75; RESP 14; O2SAT 94
--- NOTE | 2024-10-25 04:30 | RADIOLOGY REPORT ---
Exam: CT CT ABDOMEN PELVIS W/ IV CONTRAST History: abdominal pain COMPARISON: CT CT PELVIS on DOS: 02/14/23 Technique: Multidetector spiral CT of the abdomen and pelvis was performed from lung bases to pubic s ymphysis. Intravenous contrast was administered during this examination. Portal venous imaging was o btained. Axial, coronal and sagittal multiplanar reformats were performed by the technologist on a [employer] [place] workstation. Radiation Dose : 1. Abdomen/Pelvis: CTDIvol 69.82 mGy, DLP 3028.35 mGy*cm. CONTRAST: Type of contrast: Omnipaque 300 Contrast injected: 100 ml Findings: Lung Bases: No acute or significant lung base finding. Normal heart size. No pleural or pericardial effusion. Liver: The liver is enlarged, measuring 21.5 cm in craniocaudal dimension. Hepatic steatosis. No foca l lesions. Normal hepatic vascular enhancement. Gallbladder and Biliary Tree: Status post cholecystectomy. Spleen: Granulomatous appearing parenchymal calcifications. Pancreas: Mild peripancreatic inflammatory change adjacent to the head and proximal body anteriorly. No evidence of pseudocyst or abscess. No evidence of diminished parenchymal enhancement. Adrenal Glands: Unremarkable Kidneys: No hydronephrosis. Bladder: Unremarkable Bowel: The stomach is grossly normal in appearance. Small bowel and colon are normal in caliber and d istribution. The appendix is surgically absent. Ascites: Absent Lymphadenopathy: No mesenteric, retroperitoneal or periportal lymphadenopathy. Abdominal Wall and Mesentery: Unremarkable. Vasculature: The visualized abdominal aorta is normal in size and caliber. Abdominal and pelvic vess els demonstrate normal enhancement. Pelvic Organs: Unremarkable. Bilateral fat containing inguinal hernias. Musculoskeletal: No aggressive focal bony lesions, acute fractures or dislocation. IMPRESSION: 1. Mild peripancreatic inflammatory change without evidence of abscess, pseudocyst or diminished pare nchymal enhancement, consistent with mild probably early acute appendicitis. 2. Hepatomegaly and hepatic steatosis. Radiation optimization: All CT scans at this facility use at least one of these dose optimization gamal hniques: automated exposure control mA and/or kV adjustment per patient size (includes targeted exam s where dose is matched to clinical indication) or iterative reconstruction.
--- NOTE | 2024-10-25 05:07 | Physician Documentation ---
History of Present Illness Chief Complaint: Abdominal Pain Stated Complaint: ABDOMINAL PAIN M ALS Time Seen by MD: 00:58 Primary Medical Doctor: [facility] Mode of Arrival: POV, EMS HPI Epigastric abdominal pain radiating to the back. No fever, N/V/D, urinary symptoms. Also reports bloody bowel movements. Medication Reconciliation Allergies: Coded Allergies: Inhaled Anesthetics (Halogen Based) (Verified Allergy, Severe, MALIGNANT HYPERTHERMIA, 11/23/22) succinylcholine (Verified Allergy, Severe, MALIGNANT HYPERTHERMIA, 11/23/22) metformin (Unverified Adverse Reaction, Intermediate, N/V, 11/23/22) Scheduled Cariprazine Hydrochloride (Vraylar), 1 CAP PO HS, (Reported) Divalproex Sodium (Divalproex Sodium), 1 TAB PO QAM, (Reported) Divalproex Sodium DR* (Depakote DR*), 2 TAB PO QPM, (Reported) Docusate Sodium (Dulcolax Stool Softener), 1 CAP PO Q12H Gabapentin (Neurontin), 1 CAP PO BID, (Reported) Gemfibrozil (Lopid), 600 MG PO DAILY Hydrocortisone (Anusol-Hc), 1 APPLIC TOP Q8H Hydroxyzine Pamoate (Hydroxyzine Pamoate), 1 CAP PO DAILY, (Reported) Icosapent Ethyl (Vascepa), 2 CAP PO BID, (Reported) Insulin Glargine,Hum.rec.anlog* (Lantus*), 30 UNITS SQ HS, (Reported) Insulin Lispro (Humalog), 5 UNITS SQ BIDWM, (Reported) Lacosamide (Vimpat), 1 TAB PO Q12H Lamotrigine (LaMICtal tablet), 1 TAB PO BID, (Reported) Lidocaine/Prilocaine (Lidocaine-Prilocaine Cream), 1 APPLIC TOP UD Nystatin (NYSTOP powder), 1 APPLIC TP BID Prazosin HCl (Prazosin HCl), 1 CAP PO HS, (Reported) Prednisone (Prednisone), 6 TAB PO DIRECTED Valacyclovir HCl (Valacyclovir), 1 TAB PO BID Scheduled PRN Nitroglycerin SL* (Nitrostat SL*), 1 TAB SL Q5MIN PRN for Chest pain Q5min PRNx3-call MD, (Reported) Past Medical History Past Medical History: Seizures, High Cholesterol, Hypertension, Hepatitis C, Diabetes, Arthritis, Chronic Pain, *PSYCH*, Anxiety Past Surgical History: appendectomy, cholecystectomy, orthopedic surgeries Smoking Status: Current some day smoker Alcohol Use: None Drug Use: none Lives with: Spouse, Family Lives In: Home Occupation: employed Review of Systems All Other Systems at this time: Reviewed and Negative Physical Exam Vital Signs: RN Vital Signs have been reviewed: Yes, Temperature: 98.9, Source: Oral, Heart Rate: 75, Respiratory Rate: 14, BP: 125/72, Pulse Oximetry: 94, Weight: 91.800 Oxygen Flow Rate: 0 Physical Exam HEENT: PERRL, moist oral mucosa, EOMI Pulmonary: No respiratory distress Cardiac: RRR, no murmur, rub or gallop GI: nondistended, soft, diffusely tender, no guarding, no rebound MSK: no deformity Skin: w/d/i, no rash Neuro: alert, nonfocal Psych: normal affect Progress Results/Orders Results/Orders Orders - LEONEL MARTINEZ MD Ct Abdomen Pelvis (10/25/24 03:22) Completed Orders - LEONEL MARTINEZ MD Cbc/Diff (10/25/24 00:56) Lipase (10/25/24 00:56) CMP (10/25/24 00:56) Drug Screen, Urine (10/25/24 01:01) Ua W/Microscopic, Cult If Ind (10/25/24 02:20) Ct Abdomen Pelvis (10/25/24 03:22) Iohexol 300mg/Ml 100ml Inj. (Omnipaque-3 (10/25/24 03:30) Vital Signs 10/25/24 10/25/24 10/25/24 10/25/24 00:49 01:09 02:21 03:19 Temp 98.9 98.9 Pulse 89 83 78 78 Resp 16 15 14 19 B/P (MAP) 134/83 125/83 (97) 134/79 (97) 149/79 (102) Pulse Ox 96 97 98 96 O2 Flow Rate 0 0 10/25/24 04:27 Pulse 75 Resp 14 B/P (MAP) 125/72 (89) Pulse Ox 94 Laboratory Tests Test 10/25/24 00:55 10/25/24 00:56 10/25/24 02:20 Glucometer 203 H White Blood Count 6.8 Red Blood Count 3.71 L Hemoglobin 11.8 L Hematocrit 34.1 L Mean Corpuscular Volume 92.1 Mean Corpuscular Hemoglobin 31.8 H Mean Corpuscular Hemoglobin Concent 34.6 Red Cell Distribution Width 13.4 Platelet Count 232 Mean Platelet Volume 10.5 H Neutrophils (%) (Auto) 70.5 Lymphocytes (%) (Auto) 20.2 L Monocytes (%) (Auto) 8.3 Eosinophils (%) (Auto) 0.7 Basophils (%) (Auto) 0.3 Neutrophils # (Auto) 4.8 Lymphocytes # (Auto) 1.4 Monocytes # (Auto) 0.6 Eosinophils # (Auto) 0.0 Basophils # (Auto) 0.0 CBC Comment Sodium Level 132 L Potassium Level 3.9 Chloride Level 97 L Carbon Dioxide Level 20.6 L Anion Gap 14 Blood Urea Nitrogen 15 Creatinine 0.91 Estimated GFR/1.73 m2 90 BUN/Creatinine Ratio 16.5 Glucose Level 211 H Calcium Level 9.1 Total Bilirubin 0.3 Aspartate Amino Transf (AST/SGOT) 21 Alanine Aminotransferase (ALT/SGPT) 31 Alkaline Phosphatase 92 Total Protein 7.2 Albumin 3.2 L Globulin 4.0 Albumin/Globulin Ratio 0.8 L Lipase 47 Chemistry Comments Urine Specimen Description Cln catch midstream Urine Color Yellow Urine Clarity Clear Urine pH 6.0 Urine Specific [place] 1.010 Urine Protein Trace Urine Glucose (UA) 100 H Urine Ketones Trace H Urine Occult Blood Negative Urine Nitrite Negative Urine Bilirubin Negative Urine Urobilinogen 0.2 Urine Leukocyte Esterase Negative Urine RBC None seen Urine WBC 0-4 Urine Squamous Epithelial Cells Few Urine Bacteria None seen Urine Culture Indicated Not ind Volume Urine Centrifuged 10 ml Urine Comment Urine Opiates Screen Negative Urine Methadone Screen Negative Urine Fentanyl Screen Negative Urine Barbiturates Screen Negative Urine Phencyclidine Screen Negative Urine Amphetamines Screen Negative Urine Benzodiazepines Screen Negative Urine Cocaine Screen Negative Urine Cannabinoids Screen Negative Drug Screen Comment Medical Decision Making Findings 44 year old male as above. Workup was significant for evidence of pancreatitis on CT scan but no elevated lipase or leukocytosis noted. Will discharge with dietary advise and early appendicitis return precautions discussed. Patient exhibited no bloody bowel movements during his many hour stay here in the ER and appears safe to go home. Additional Comments Ddx = appendicitis, pancreatitis, cholelithiasis/cholecystitis, UTI, pyelonephritis, gastroenteritis Departure Disposition: HOME / SELF CARE / HOMELESS Impression: Primary Impression: Pancreatitis Condition: Stable Discharge Instructions: Acute Pancreatitis Referrals: NO PRIMARY CARE PROVIDER (PCP) Education Educated: Patient Educated regarding: diagnosis, treatment, prognosis, need for follow up Signature Scribe Signature: . Attestation: . LEONEL MARTINEZ MD Oct 25, 2024 05:07
[2024-10-25 05:29] VITALS: TEMP 98.9
== END 2024-10-25 05:30 | disposition home or self-care (01) ==
LOC: ER 00:47
DX: K85.90 Acute pancreatitis without necrosis or infection, unspecified (principal); E11.9 Type 2 diabetes mellitus without complications; E78.00 Pure hypercholesterolemia, unspecified; F17.200 Nicotine dependence, unspecified, uncomplicated; I10 Essential (primary) hypertension; F41.9 Anxiety disorder, unspecified; M19.90 Unspecified osteoarthritis, unspecified site; Z88.4 Allergy status to anesthetic agent; Z88.8 Allergy status to other drugs, medicaments and biological substances; Z90.49 Acquired absence of other specified parts of digestive tract; Z79.899 Other long term (current) drug therapy
CPT/HCPCS: 74178; 80053; 80305; 81001; 82948; 83690; 85025; 99285; Q9967

== ENCOUNTER 2024-10-31 00:13 | Inpatient (IN) | payer MEDICARE, MEDICAID ==
[~2024-10-31] VITALS: Ht 175.3 cm; Wt 95.0 kg
[2024-10-31] VITALS (7 sets, daily range): BP systolic 125–153; BP diastolic 84–103; PULSE 71–78; RESP 12–18; TEMP 97.2–98; O2SAT 92–97
--- NOTE | 2024-10-31 00:29 | Physician Documentation ---
History of Present Illness Chief Complaint: Abdominal Pain Stated Complaint: ABD PAIN Time Seen by MD: 00:28 Primary Medical Doctor: [facility] 44-year-old male, recent diagnosis of pancreatitis, who presents with the abdominal pain He tells me that he was seen here in the emergency department 3 days ago, had a CT scan and was diagnosed with pancreatitis. He tells me that his symptoms are not getting any better. He reports ongoing abdominal pain that was worse in the central abdomen. He reports associated nausea and constipation. He denies any vomiting. He is not keeping down much food or fluids. Nothing helps with the pain. Otherwise no new or different symptoms. Medication Reconciliation Allergies: Coded Allergies: Inhaled Anesthetics (Halogen Based) (Verified Allergy, Severe, MALIGNANT HYPERTHERMIA, 10/31/24) succinylcholine (Verified Allergy, Severe, MALIGNANT HYPERTHERMIA, 10/31/24) metformin (Unverified Adverse Reaction, Intermediate, N/V, 10/31/24) Scheduled Atorvastatin Calcium* (Lipitor*), 1 TAB PO DAILY, (Reported) Cenobamate (Xcopri), 0.5 TAB PO DAILY, (Reported) Cyclobenzaprine HCl (Cyclobenzaprine HCl), 1 TAB PO HS, (Reported) Divalproex Sodium DR* (Depakote DR*), 2 TAB PO QPM, (Reported) Docusate Sodium (Dulcolax Stool Softener), 1 CAP PO Q12H Gabapentin (Neurontin), 1 CAP PO BID, (Reported) Gemfibrozil (Lopid), 600 MG PO DAILY Hydrocodone Bit/Acetaminophen 5/325 MG ([place] 5/325 MG), 1 TAB PO DAILY, (Reported) Icosapent Ethyl (Vascepa), 2 CAP PO BID, (Reported) Insulin Glargine,Hum.rec.anlog* (Lantus*), 30 UNITS SQ HS, (Reported) Insulin Lispro (Humalog), 5 UNITS SQ BIDWM, (Reported) Lacosamide (Vimpat), 1 TAB PO Q12H Lamotrigine (LaMICtal tablet), 2 TAB PO BID, (Reported) Lisinopril (Lisinopril), 1 TAB PO DAILY, (Reported) [place] Carbonate* ([place] Carbonate*), 1 TAB PO DAILY, (Reported) Meloxicam* (Meloxicam*), 1 TAB PO BID, (Reported) Nicotine 7 MG Patch* (Habitrol 7 MG Patch*), 1 PATCH TD DAILY, (Reported) Nystatin (NYSTOP powder), 1 APPLIC TP BID Pantoprazole Sodium (PROTONIX tablet), 1 TAB PO DAILY, (Reported) Polyethylene Glycol 3350 (Miralax), 17 GM PO DAILY, (Reported) Prazosin HCl (Prazosin HCl), 3 CAP PO HS, (Reported) Semaglutide (Rybelsus), 1 TAB PO QAM, (Reported) Semaglutide (Rybelsus), 1 TAB PO DAILY, (Reported) Valacyclovir HCl (Valacyclovir), 1 TAB PO BID Scheduled PRN Acetaminophen (Tylenol), 2 TAB PO Q4HPRN PRN for pain or fever, (Reported) Nitroglycerin SL* (Nitrostat SL*), 1 TAB SL Q5MIN PRN for Chest pain Q5min PRNx3-call MD, (Reported) Miscellaneous Medications Diclofenac Sodium (Voltaren Arthritis Pain), (Reported) Discontinued Medications Cariprazine Hydrochloride (Vraylar), 1 CAP PO HS, (Reported) Discontinued Reason: patient no longer taking Divalproex Sodium (Divalproex Sodium), 1 TAB PO QAM, (Reported) Discontinued Reason: patient no longer taking Hydrocortisone (Anusol-Hc), 1 APPLIC TOP Q8H Discontinued Reason: patient no longer taking Hydroxyzine Pamoate (Hydroxyzine Pamoate), 1 CAP PO DAILY, (Reported) Discontinued Reason: patient no longer taking Lidocaine/Prilocaine (Lidocaine-Prilocaine Cream), 1 APPLIC TOP UD Discontinued Reason: patient no longer taking Prazosin HCl (Prazosin HCl), 1 CAP PO HS, (Reported) Discontinued Reason: patient no longer taking Prednisone (Prednisone), 6 TAB PO DIRECTED Discontinued Reason: patient no longer taking Past Medical History Past Medical History: Seizures, High Cholesterol, Hypertension, Hepatitis C, Diabetes, Arthritis, Chronic Pain, *PSYCH*, Anxiety Past Surgical History: appendectomy, cholecystectomy, orthopedic surgeries Alcohol Use: None Drug Use: none Lives with: Spouse, Family Lives In: Home Occupation: employed Review of Systems Constitutional: Denies: fever Gastrointestinal: Reports: abdominal pain, nausea; Denies: vomiting Physical Exam Vital Signs: Temperature: 98.8, Source: Oral, Heart Rate: 88, Respiratory Rate: 18, BP: 178/103, Pulse Oximetry: 96, Weight: 95.000 Oxygen Flow Rate: 0 Physical Exam General: This is a nontoxic appearing middle-aged man, not in distress HEENT: Atraumatic, oropharynx appears dry Heart: Regular rate and rhythm, normal-appearing peripheral perfusion Lungs: normal work of breathing, normal oxygen saturation on room air Abdomen: Soft, mildly distended. He has tenderness to palpation, that seems worse in the periumbilical region and lower abdomen. Minimal tenderness on palpation in the upper most abdomen. Voluntary guarding Neuro: Alert and oriented Psychiatric: Calm and cooperative with exam Progress Results/Orders Results/Orders Vital Signs 10/31/24 00:22 Temp 98.8 Pulse 88 Resp 18 B/P (MAP) 178/103 Pulse Ox 96 O2 Flow Rate 0 EKG/XRAY/CT/US/VASC/MRI CT : Impression I personally reviewed the CT scan, and this shows inflammatory changes to the pancreas, but no bowel obstruction or ileus Consults/PCP Consults/PCP : Additional Comment Consult: I spoke to the internal medicine service, for admission in the [facility] Medical Decision Making Additional info obtained from: old records Findings Per chart review, the patient was seen here recently, had unremarkable laboratory testing but a CT scan with possible pancreatitis. Differential Dx:Considerations: Include: AAA, Appendicitis, Bowel obstruction, Cholelithasis, Constipation, Diverticular disease, Pancreatitis, Urinary tract infection Additional Comments The patient presents with worsening abdominal pain after recent diagnosis of pancreatitis. On exam he is quite tender in the abdomen. His labs are grossly unremarkable except his lipase has slightly increased compared to the previous visit. Given his worsening pain, a CT scan was again obtained which shows inflammatory changes of the pancreas, but no other acute abnormality. He was given several rounds of pain medications and IV fluids, but continued to have significant pain. He will be admitted to the medicine service for further workup and treatment. Departure Impression: Primary Impression: Abdominal pain Additional Impression: Pancreatitis Referrals: NO PRIMARY CARE PROVIDER (PCP) Signature Scribe Signature: na Attestation: DENILSON Weiner MD Oct 31, 2024 00:29
[2024-10-31] MEDS: normal saline 1000ML IV soln IVB ONE ×2 (00:43→04:19)
[2024-10-31] MEDS: ondansetron/PF 4mg/2ml inj IV ONE (00:43)
[2024-10-31] MEDS: morphine 4 MG/ML inj SYRINge IV ONE ×3 (00:44→04:21)
[2024-10-31 01:26] LABS: CREATININE 0.97 MG/DL (0.60-1.10); TOTAL CARBON DIOXIDE 24.3 MMOL/L (24-32); eCRCL 101 ML/MIN; eGFR 83 ML/MIN
[2024-10-31 01:36] LABS: MEAN PLATELET VOLUME 8.9 FL (7.4-10.4); RED CELL DISTRIBUTION WIDTH 14.2 % (11.5-14.5)
[2024-10-31] MEDS ORDERED: iohexol 300mg/ml 100ml inj. ONE (02:53)
--- NOTE | 2024-10-31 03:40 | RADIOLOGY REPORT ---
Exam: CT CT ABDOMEN PELVIS W/ IV CONTRAST History: Lower abdominal pain, recent pancreatitis, concern for ileus or obstruction COMPARISON: CT CT ABDOMEN PELVIS W/ IV CONTRAST on DOS: 10/25/24 Technique: Multidetector spiral CT of the abdomen and pelvis was performed from lung bases to pubic s ymphysis. Intravenous contrast was administered during this examination. Portal venous imaging was o btained. Axial, coronal and sagittal multiplanar reformats were performed by the technologist on a [employer] workstation. Radiation Dose : 1. Abdomen/Pelvis: CTDIvol 24 mGy, DLP 1325 mGy*cm. Findings: Lung Bases: No acute findings. Mild scarring/atelectasis in the right lung base. Liver: Diffuse hypoenhancement relative to the spleen. Length measures 21 cm. Gallbladder and Biliary Tree: Prior cholecystectomy. Pancreas: Small amount of soft tissue stranding along the anterior aspect of the pancreatic body. No obvious parenchymal stranding or fluid collection. Spleen: Punctate calcifications. Adrenal Glands: Unremarkable Kidneys: Normal. Bladder: Unremarkable. Pelvic Organs: Unremarkable as visualized. Bowel: Normal caliber without wall thickening. No evidence of appendicitis. Vasculature: Unremarkable. Lymphadenopathy: No evident adenopathy. Peritoneum: No ascites, free air, or fluid collection. Abdominal Wall: Small fat containing inguinal hernias. Musculoskeletal: Mild degenerative changes. IMPRESSION: 1. Findings again suggesting recurrent or residual acute interstitial pancreatitis. 2. No other acute abdominopelvic abnormality. Radiation optimization: All CT scans at this facility use at least one of these dose optimization gamal hniques: automated exposure control mA and/or kV adjustment per patient size (includes targeted exam s where dose is matched to clinical indication) or iterative reconstruction.
[2024-10-31] MEDS ORDERED: potassium Cl 40MEQ/1/2NS 520ml 520 ML IV PRN (04:30)
[2024-10-31] MEDS ORDERED: potassium Cl 20 mEq SR tablet PO PRN ×2 (04:30)
[2024-10-31] MEDS ORDERED: ondansetron/PF 4mg/2ml inj IV PRN (04:30)
[2024-10-31] MEDS ORDERED: magnesium hydroxide 30ml (MOM) UD suspension PO PRN (04:30)
[2024-10-31] MEDS ORDERED: mag hydrox/Alum hydrox/simeth 30ml oral suspension PO PRN (04:30)
[2024-10-31] MEDS ORDERED: magnesium sulf-water 2g/50mL 50 ML IV PRN (04:30)
[2024-10-31] MEDS ORDERED: magnesium Cl slow-release 64mg tablet PO PRN (04:30)
[2024-10-31] MEDS ORDERED: magnesium sulf-water 4G/100mL 100 ML IV PRN (04:30)
[2024-10-31] MEDS ORDERED: CENO200T PO (04:51)
[2024-10-31] MEDS ORDERED: SEMA3TAB4 PO (04:51)
[2024-10-31] MEDS ORDERED: DICL20GE (04:51)
[2024-10-31] MEDS ORDERED: MELO-100 PO (04:51)
[2024-10-31] MEDS ORDERED: HYDR-3965 PO (04:51)
[2024-10-31] MEDS ORDERED: NICO-630 TD (04:51)
[2024-10-31] MEDS ORDERED: SEMA7TAB2 PO (04:51)
[2024-10-31] MEDS ORDERED: CYCL-394 PO (04:51)
[2024-10-31] MEDS ORDERED: ATOR-429 PO (04:51)
[2024-10-31] MEDS ORDERED: POLY119P2 PO (04:51)
[2024-10-31] MEDS ORDERED: LITH450T2 PO (04:51)
[2024-10-31] MEDS ORDERED: ACET-2119 PO (04:51)
[2024-10-31] MEDS ORDERED: PANT-47 PO (04:51)
[2024-10-31] MEDS ORDERED: LISI30TA4 PO (04:51)
--- NOTE | 2024-10-31 05:34 | HISTORY AND PHYSICAL-Residence ---
History & Physical Providers to CC Resident Creating Document: ESCOBAR MONREAL CC: ARIK CARDENAS MD ~ History of Present Illness Primary Medical Doctor: [facility] Reason for Admit\Complaint: Abdominal pain History of Present Illness Patient is a 44-year-old male with history of epilepsy, developmental delay, anxiety, mood disorder, type 2 diabetes, and hypertriglyceridemia who came to the ED due to abdominal pain. Patient reports that he initially started with the abdominal pain 3 days ago, pain was located in epigastrium radiating bandlike to left and right upper quadrants as well as left lower quadrant, 10/10 in intensity, sharp, worsened by walking or bending over, accompanied by nausea and decreased appetite. Patient initially came to the ED that same day and he was sent home after pain medications were given. In view of no improvement and worsening of pain, patient came back today. He denies fevers, chills, chest pain, palpitations or any other subjective symptoms. He also denies alcohol intake. Allergies: Coded Allergies: Inhaled Anesthetics (Halogen Based) (Verified Allergy, Severe, MALIGNANT HYPERTHERMIA, 10/31/24) succinylcholine (Verified Allergy, Severe, MALIGNANT HYPERTHERMIA, 10/31/24) metformin (Unverified Adverse Reaction, Intermediate, N/V, 10/31/24) Home Medications Home Medications Active NYSTOP powder (Nystatin) 100,000 Unit/Gram Gra 1 Applic TP BID 14 Days Dulcolax Stool Softener (Docusate Sodium) 100 Mg Capsule 1 Cap PO Q12H 30 Days Lopid (Gemfibrozil) 600 Mg Tablet 600 Mg PO DAILY Valacyclovir (Valacyclovir HCl) 500 Mg Tablet 1 Tab PO BID 5 Days Vimpat (Lacosamide) 200 Mg Tablet 1 Tab PO Q12H 30 Days Reported Xcopri (Cenobamate) 200 Mg Tablet 0.5 Tab PO DAILY MDD 1 Tablet(s) 30 Days Voltaren Arthritis Pain (Diclofenac Sodium) 1 % Gel..gram. Rybelsus (Semaglutide) 7 Mg Tablet 1 Tab PO DAILY 30 Days DIRECTED Cyclobenzaprine HCl 10 Mg Tablet 1 Tab PO HS 30 Days Lipitor* (Atorvastatin Calcium) 80 Mg Tablet 1 Tab PO DAILY 30 Days Rybelsus (Semaglutide) 3 Mg Tablet 1 Tab PO QAM 30 Days Prazosin HCl 5 Mg Capsule 3 Cap PO HS 30 Days PROTONIX tablet (Pantoprazole Sodium) 40 Mg Tablet.dr 1 Tab PO DAILY 30 Days Habitrol 7 MG Patch* (Nicotine) 1 Each Patch.td24 1 Patch TD DAILY 14 Days Miralax (Polyethylene Glycol 3350) 17 Gram/Dose Powder 17 Gm PO DAILY dissolve in water Meloxicam* (Meloxicam) 7.5 Mg Tablet 1 Tab PO BID [place] 5/325 MG (Acetaminophen/Hydrocodone Bitart) 5 Mg/325 Mg Tablet 1 Tab PO DAILY 5 Days [place] Carbonate* ([place] Carbonate) 450 Mg Tablet.sa 1 Tab PO DAILY Lisinopril 30 Mg Tablet 1 Tab PO DAILY Vascepa (Icosapent Ethyl) 1 Gram Capsule 2 Cap PO BID LaMICtal tablet (Lamotrigine) 100 Mg Tablet 2 Tab PO BID Lantus* (Insulin Glargine) 100 Unit/1 Ml Vial 30 Units SQ HS Neurontin (Gabapentin) 300 Mg Capsule 1 Cap PO BID Humalog (Insulin Lispro) 100 Unit/1 Ml Insuln.pen 5 Units SQ BIDWM SLIDING SCALE Nitrostat SL* (Nitroglycerin) 0.4 Mg Tablet 1 Tab SL Q5MIN PRN Depakote DR* (Divalproex Sodium) 500 Mg Tablet.dr 2 Tab PO QPM 30 Days Past Medical History Past Medical History Epilepsy developmental delay Anxiety Mood disorder with psychotic features Type 2 diabetes Hypertriglyceridemia Past Surgical History Surgical History Comment Cholecystectomy Appendectomy Left hand fracture repair, 15 years ago Right foot spur surgery x2 Past Social History Smoking: Cigarettes (60 aches cigarettes a day for the past 10-12 years) Alcohol Use: None Drug Use: None Lives with: Spouse Lives In: Home Occupation: disabled ROS ROS All systems were reviewed and found negative except pertinent positives mentioned in HPI Constitutional: Denies: fever Exam Vitals: Vital Signs Date Time Temp Pulse Resp B/P (MAP) Pulse Ox O2 Delivery O2 Flow Rate FiO2 10/31/24 04:56 80 16 166/107 (126) 97 0 10/31/24 00:22 98.8 General: General: awake, alert oriented to place, time, and person HEENT: No pallor present, no icterus, moist mucous membranes Neck: No masses and tenderness Resp: Unlabored. Lungs clear to auscultation bilaterally. Chest: Normal expansion Cardiovascular: Regular Rate and rhythm, normal S1 and S2 without murmur, rub or gallop Abdomen: Soft and significantly tender to palpation in upper quadrants, worse in epigastrium, no organomegaly, no guarding and rigidity, bowel sounds present Neuro: No focal weakness in the upper and lower limb muscles, power of the muscles 5/5 bilateral upper and lower extremities, normal reflexes bilaterally. Cranial nerves intact Extremities: No cyanosis,clubbing or edema Skin: Warm and Dry. No lesions Psych: Normal affect and mood Diagnostic Data Last Recorded Lab Results: 10/31/24 0027 10/31/24 0027 Advance Care Planning Advanced Care plannin - 30 Minutes Additional Plan Patient is a 44-year-old male with history of epilepsy, developmental delay, anxiety, mood disorder, type 2 diabetes, and hypertriglyceridemia who came to the ED due to abdominal pain. Admitted for management of acute pancreatitis. Acute pancreatitis, likely medication induced Patient was recently started on semaglutide He is also on Depakote and multiple other anti-seizure medications He also has history of hypertriglyceridemia on fibrates CT abdomen pelvis shows findings consistent with the acute pancreatitis Lipase: 99 Received 2 L of IV NS in ED Continue IV NS at 100 cc/hour Continue pain management Pending triglyceride levels Keep NPO for now Hold semaglutide/Depakote Type 2 diabetes Hypertriglyceridemia Hypercholesterolemia Hypertension Start hyper/hypoglycemia protocol, Lantus 15 units, low-dose supplemental Continue gemfibrozil 600 mg daily Continue atorvastatin 80 mg daily Continue lisinopril, prazosin Will hold prandial insulin view of NPO Epilepsy Anxiety Mood disorder with psychotic features Continue home Cenobamate 200mg, gabapentin 300 mg b.i.d., Vascepa 2 g b.i.d., Vimpat 200 mg b.i.d., lithium 450 mg daily Hold Depakote Code Status: Full code DVT prophylaxis: Lovenox Nutrition: NPO Prognosis: Guarded Disposition: Admit to surgical unit. Continue medical management Escobar Mcintyre MD Internal Medicine Resident PGY-2 [facility] [place] Addendum #1 Neuro: The pt has a history of Epilepsy and Developmental Delay. -Continue home AED regimen (Lamictal, Gabapentin) -Monitor for delirium #2 Psych: The pt has Anxiety and Mood Disorder. -Continue current psychotropic medications Gabapentin, [place], Prazosin #3 CV: HTN -Pt hemodynamically stable, monitor vitals -Continue antihypertensive regimen (Lisinopril) #4 Pulm: -Promote IS use -Keep O2 sat >92% #5 GI: The pt has Acute Recurrent Pancreatitis and Severe Hypertriglyceridemia. -Pancreatitis etiology likely secondary to hypertriglyceridemia -Start IV fluids for pancreatitis management -NPO to rest pancreas - may need to consider insulin drip if this is truly pancreatitis - gemfibrozil for triglyceride management #6 Renal: -Monitor for YOLA -Replete electrolytes as needed #7 ID: -Monitor for signs of infection #8 Endo: Pt with history of Type 2 Diabetes Mellitus and Dyslipidemia. -Insulin sliding scale to maintain serum glucose 150-180 -Continue long-acting insulin (Lantus) as needed -statin and Gemfibrozil for lipid management (Lipitor) #9 Heme/Onc: -Monitor for bleeding and blood clots -Maintain Hgb >7 and plt >10 -Continue Lovenox for DVT prophylaxis #10 PPx: -Chemical DVT prophylaxis with Lovenox I saw this patient and completed a full visual exam via audio-visual HIPAA compliant technology. Date of Service: Oct 31, 2024 Billing Provider: ARIK CARDENAS MD, LEONARDO LUIS Oct 31, 2024 05:34 ARIK CARDENAS MD Oct 31, 2024 09:34
[2024-10-31] MEDS ORDERED: dextrose 50%-water 50ml dispensing syringe IV PRN ×2 (05:40)
[2024-10-31] MEDS ORDERED: DEXTROSE 15 GM of carb/4 tabs (each vial/BOTTLE has 4 tablets) PO PRN ×2 (05:40)
[2024-10-31] MEDS ORDERED: glucagon, human recombinant 1mg kit SUBCUT PRN (05:40)
[2024-10-31] MEDS: normal saline 1000ml 1,000 ML IV SCH (05:48)
[2024-10-31 06:53] LABS: LDL CHOLESTEROL 51 MG/DL (50-100)
[2024-10-31 06:56] LABS: CHOL/HDL RATIO 14.8 (0.00-4.99)
[2024-10-31] MEDS: INSULIN LISPRO 100 UNIT/ML INSULN.PEN MULTI-DOSE SQ SCH (07:11)
[2024-10-31] MEDS: K and/or MAG REPLACEMENT MC SCH (08:00)
[2024-10-31] MEDS: lithium carbonate 450mg CR tablet PO SCH (10:39)
[2024-10-31] MEDS: pantoprazole 40mg Tablet.DR PO SCH (10:39)
[2024-10-31] MEDS: LACOSAMIDE 50 MG TABLET PO SCH (10:39)
[2024-10-31] MEDS: nicotine 7mg patch - 24hr TD SCH (10:40)
[2024-10-31] MEDS: docusate sod 100mg capsule PO SCH (10:42)
[2024-10-31] MEDS: ringers solution, lacted 1,000 ML IV SCH (13:17)
[2024-10-31] MEDS: enoxaparin 40mg/0.4ml syringe SQ SCH (20:39)
[2024-10-31] MEDS: insulin glargine (Lantus) pen - multi-dose SQ SCH (22:28)
[2024-10-31] MEDS: prazosin 5mg capsule PO SCH (22:57)
[2024-11-01 06:00] VITALS: BP 134/78; PULSE 77; RESP 18; TEMP 97.9; O2SAT 97
[2024-11-01 08:52] LABS: MEAN PLATELET VOLUME 9.2 FL (7.4-10.4); RED CELL DISTRIBUTION WIDTH 13.2 % (11.5-14.5)
[2024-11-01 09:26] LABS: CREATININE 0.82 MG/DL (0.60-1.10); TOTAL CARBON DIOXIDE 24.8 MMOL/L (24-32); eCRCL 113 ML/MIN; eGFR > 90 ML/MIN
[2024-11-01 09:30] VITALS: RESP 18; O2SAT 99
[2024-11-01 10:00] VITALS: BP 127/72; PULSE 83; RESP 18; TEMP 97.9; O2SAT 95
--- NOTE | 2024-11-01 12:38 | PROGRESS NOTE- Residence ---
Progress Note - Resident Providers to CC Resident Creating Document: CRISTIAN LINDA, RES ~ Mustafa-Non Protocol Mustafa Indications Met/Not Met: F/C Indications Met Antibiotic Timeout Antibiotic Ordered?: No Subjective Pt stated that his pain is subsided and did not have to use any pain meds yesterday. He is tolerating well with his clear liquid diet and has an interest and enthusiastic to titrate up to the full liquid diet today. He stated that he has passed gas and BM x 3 times this am. Objective Vital Signs Date Time Temp Pulse Resp B/P (MAP) Pulse Ox O2 Delivery O2 Flow Rate FiO2 11/01/24 10:00 97.9 83 18 127/72 (90) 95 Room Air 10/31/24 20:30 0.0 Result Diagram: 11/01/24 0838 11/01/24 0517 Pt's vitals were stable with temp 97.9 F, DC 83/minute, RR 18/minute, BP 127/72 mm Hg, pulse oximetry 95% on room air. On examination, General: Well alert, well oriented, not confused, not agitated, not in acute distress, well cooperated during the physical. HEENT: Conjunctive are pink, sclerae clear, no icterus, pupil is equal in both sides, reactive to light, no ear discharge, no pharyngeal erythema or an edema, mouth and lips are moist. Neck: Supple, no JVD, no lymphadenopathy and thyromegaly. 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: No focal neurological deficits, no motor and sensory weakness in all 4 extremities, could move all 4 extremities Musculoskeletal: No joint swelling, deformities, inflammations, and no scoliosis and back tenderness Skin: No active skin lesions and rashes Assessment Assessment A 44 years old male with a past medical history of medication noncompliance hypertriglyceridemia, T2 DM, epilepsy, developmental delay, psych issues-anxiety and mood disorder on psych medications, s/p cholecystectomy, s/p appendicectomy, s/p orthopedic surgery, presented with epigastric abdominal pain found to have elevated lipase level and imaging findings of recurrent/residual acute interstitial pancreatitis. Plan Plan # Medication noncompliance hypertriglyceridemia induced Vs psych meds induced acute pancreatitis 11/01/24: -trending down TG levels from 3475 to 2327 -downgraded to the full liquid diet -Continue pain management as needed -Continued IV LR at 100 cc/hour -We will review his psych meds for the possible acute pancreatitis and will consider with Psych to reconciled his psych medications (lacosamide, lamotrigine, lithium) and also need to consult with Neurology for anticonvulsant medications dosage adjustment for his seizure disorder -low serum calcium but not associated with the worse prognosis state of low calcium at that moment 10/31/24: -Patient recently started semaglutide -He is also on Depakote and multiple other anti-seizure medications -He also has history of hypertriglyceridemia on fibrates which is noncompliance -CT abdomen pelvis shows findings consistent with the acute pancreatitis -Lipase on admission: 99 -Received 2 L of IV NS in ED -Hold semaglutide/Depakote # T2DM # HTN # Non compliance HyperTG # class one obesity, BMI 30.9 -continue hypo/hyperglycemic protocol with low-dose sliding scale insulin regimen, RBS ranging around 170s -we will update the dosage of insulin based on his glucose level -glargine 15 units at night -continue medications-fenofibrate, gemfibrozil, atorvastatin, lisinopril, prazosin # Epilepsy # developmental delay # psych issues-anxiety and mood disorder on psych medications - will need to consult with Neurology/pscyh for anticonvulsant/pscyhotropic medications-lacosamide, lamotrigine and lithium as the possible causes of hypertriglyceridemia/acute pancreatitis CODE STATUS: Full code DVT prophylaxis: Lovenox Analgesia/sedation: Morphine as needed Lines/tubes: PIV GI prophylaxis: Pantoprazole Nutrition: Full liquid--> plan to advanced the diet as tolerated Prognosis: Guarded Disposition: Continue medical management including generous IV fluids, advanced the diet as tolerated, pain control, plan to reconciled the anticonvulsant/psychotropic medications in the setting of hypertriglyceridemia/possible medication induced acute pancreatitis, repeat triglyceride before discharge, PT eval and DC plan tomorrow. Resident MD attestation: Patient was seen, examined and discussed with attending MD, Dr. Micheal LINDA MD Internal Medicine Resident, PGY3 [facility] Date of Service: Nov 01, 2024 Billing Provider: PARIS CAO MD Common Visit Codes: [id number] INP/OBS CARE(HIGH) CRISTIAN LINDA, MIRIAM Nov 01, 2024 12:38 PARIS CAO MD Nov 01, 2024 22:22
[2024-11-01] MEDS: lactobacillus rhamnosus 10,000 MMU CELLS/CAPSULE PO SCH (12:41)
[2024-11-01 18:00] VITALS: BP 145/85; PULSE 74; RESP 18; TEMP 98.4; O2SAT 97
[2024-11-01 20:00] VITALS: RESP 18; O2SAT 97
[2024-11-01] MEDS: docusate sod 100mg capsule PO SCH (20:00)
[2024-11-01 22:00] VITALS: BP 153/96; PULSE 81; RESP 22; TEMP 97.2; O2SAT 96
[2024-11-02 06:31] VITALS: BP 146/94; PULSE 79; RESP 16; TEMP 97.1; O2SAT 95
[2024-11-02 07:20] VITALS: RESP 16; O2SAT 95
[2024-11-02 08:00] LABS: CREATININE 0.98 MG/DL (0.60-1.10); TOTAL CARBON DIOXIDE 29.1 MMOL/L (24-32); eCRCL 94 ML/MIN; eGFR 82 ML/MIN
[2024-11-02] MEDS: polyethylene glycol 3350 17gm powd pack PO SCH (08:00)
[2024-11-02 08:15] LABS: MEAN PLATELET VOLUME 9.4 FL (7.4-10.4); RED CELL DISTRIBUTION WIDTH 13.1 % (11.5-14.5)
[2024-11-02 10:32] VITALS: BP 150/90; PULSE 82; RESP 17; TEMP 98; O2SAT 97
[2024-11-02 11:30] VITALS: BP 119/78; PULSE 68; RESP 16; TEMP 97.9; O2SAT 97
[2024-11-02] MEDS ORDERED: FENO48TA10 PO (12:18)
--- NOTE | 2024-11-02 13:33 | DISCHARGE SUMMARY-Residence ---
Discharge Summary Providers to CC Resident Creating Document: CRISTIAN LINDA RES ~ Discharge Summary Admission Diagnosis: Hypertriglyceridemia induced acute Pancreatitis Hospital Course DATE OF ADMISSION: 10/31/2024 DATE OF DISCHARGE: 11/02/2024 Discharge Diagnosis\Comment: # Medication noncompliance hypertriglyceridemia induced acute pancreatitis # T2DM # HTN # Non compliance HyperTG # class one obesity, BMI 30.9# Epilepsy # developmental issue # psych issues-anxiety and mood disorder on psych medications Operations\Procedures: None Consultants: None Complications: None Condition on DC: Stable New Medications: Fenofibrate Nanocrystallized (Fenofibrate) 48 Mg Tablet 48 MG PO DAILY@0830 for 30 Days, #30 TAB Continued Medications: Acetaminophen (Tylenol) 325 Mg Tablet 2 TAB PO Q4HPRN PRN for pain or fever for 5 Days, #30 TAB Atorvastatin Calcium* (Lipitor*) 80 Mg Tablet 1 TAB PO DAILY for 30 Days, #30 TAB Cenobamate (Xcopri) 200 Mg Tablet 0.5 TAB PO DAILY MDD 1 Tablet(s) for 30 Days, #30 TAB 0 Refills Cyclobenzaprine HCl (Cyclobenzaprine HCl) 10 Mg Tablet 1 TAB PO HS for muscle spasms for 30 Days, #30 TAB Diclofenac Sodium (Voltaren Arthritis Pain) 1 % Gel..gram. Divalproex Sodium DR* (Depakote DR*) 500 Mg Tablet.dr 2 TAB PO QPM for 30 Days, #60 TAB Docusate Sodium (Dulcolax Stool Softener) 100 Mg Capsule 1 CAP PO Q12H for 30 Days, #60 CAP 0 Refills Gabapentin (Neurontin) 300 Mg Capsule 1 CAP PO BID Gemfibrozil (Lopid) 600 Mg Tablet 600 MG PO DAILY, #60 TAB Hydrocodone Bit/Acetaminophen 5/325 MG (Radford 5/325 MG) 5 Mg/325 Mg Tablet 1 TAB PO DAILY for 5 Days, #10 TAB Icosapent Ethyl (Vascepa) 1 Gram Capsule 2 CAP PO BID Insulin Glargine,Hum.rec.anlog* (Lantus*) 100 Unit/1 Ml Vial 30 UNITS SQ HS Insulin Lispro (Humalog) 100 Unit/1 Ml Insuln.pen 5 UNITS SQ BIDWM SLIDING SCALE Lacosamide (Vimpat) 200 Mg Tablet 1 TAB PO Q12H for 30 Days, #60 TAB Lamotrigine (LaMICtal tablet) 100 Mg Tablet 2 TAB PO BID Lisinopril (Lisinopril) 30 Mg Tablet 1 TAB PO DAILY Bingen Carbonate* (Bingen Carbonate*) 450 Mg Tablet.sa 1 TAB PO DAILY, TAB Nicotine 7 MG Patch* (Habitrol 7 MG Patch*) 1 Each Patch.td24 1 PATCH TD DAILY for smoking cessation for 14 Days, #14 PATCH Nitroglycerin SL* (Nitrostat SL*) 0.4 Mg Tablet 1 TAB SL Q5MIN PRN for Chest pain Q5min PRNx3-call MD, #25 TAB Nystatin (NYSTOP powder) 100,000 Unit/Gram Gra 1 APPLIC TP BID for 14 Days, #5 GM Pantoprazole Sodium (PROTONIX tablet) 40 Mg Tablet.dr 1 TAB PO DAILY for 30 Days, #30 TAB 0 Refills Polyethylene Glycol 3350 (Miralax) 17 Gram/Dose Powder 17 GM PO DAILY for constipation, #255 GM 0 Refills dissolve in water Prazosin HCl (Prazosin HCl) 5 Mg Capsule 3 CAP PO HS for 30 Days, #30 CAP 0 Refills Semaglutide (Rybelsus) 3 Mg Tablet 1 TAB PO QAM for 30 Days, #30 TAB 0 Refills Semaglutide (Rybelsus) 7 Mg Tablet 1 TAB PO DAILY for 30 Days, #30 TAB 0 Refills DIRECTED Valacyclovir HCl (Valacyclovir) 500 Mg Tablet 1 TAB PO BID for 5 Days, #10 TAB 0 Refills Discontinued Medications: Meloxicam* (Meloxicam*) 7.5 Mg Tablet 1 TAB PO BID Discharge Summary: A 44 years old male with a past medical history of medication noncompliance hypertriglyceridemia, T2DM, epilepsy, developmental delay, psych issues-anxiety and mood disorder on psych medications, s/p cholecystectomy, s/p appendicectomy, s/p orthopedic surgery, presented with epigastric abdominal pain found to have elevated lipase level and imaging findings of recurrent/residual acute interstitial pancreatitis. Patient was admitted to the hospital surgical floor for his acute abdominal pain for which he has done CT AP W/IV contrast on 10/31/2024 showed IMPRESSION: 1. Findings again suggesting recurrent or residual acute interstitial pancreatitis. 2. No other acute abdominopelvic abnormality. In ER, he was given generous IV Fluid with 2 L of IV 0.9% sodium chloride after he had an elevated lipase on admission with 99, which was followed by IV LR at 100cc/hr. During hospitalization, patient found to have malignant elevation of triglyceride with 3475 on current home meds of Lacosamide, Lamotrigine, and Bingen with the background history of being non-compliance prescribed anti- lipid agents. Additionally, he recently started semaglutide, and semaglutide and Dapakote were held during his stay as well. On tracking of his Lipase which down trending to 32 today, and rechecked Triglyceride was also down trending to 1844 today on gemfibrozil, fenofibrate and atorvastatin. We also reviewed the all of his current med list to associate any possible relationships between hypertriglyceridemia induced acute pancreatitis and anti conversion/psychotropic medications during hospitalization, which he should discuss and adjust with Neurology/ psychiatry in the outpatient setting via PCP arrangement. We continued hypo/hyperglycemic protocol with low-dose sliding scale insulin regimen and SQ glargine 15 units at night with the goal of RBS ranging between 140-180s during hospitalization. DVT prophylaxis was achieved with a subcutaneous Lovenox and GI prophylaxis was done with the pantoprazole. He was encouraged to restart his oral feeding as tolerated which we gradually advanced the diet plan. His pain was well-controlled and managed with morphine as needed. All of his home medications were reviewed and reconciled to continue throughout his stay. All of the questions and answers were addressed with the best knowledge of our team before he was discharged home. Today, he show both clinical and laboratory improvement before discharge and ready to be discharged today. All of the vitals were stable at the moment with temp 97.9 F, WI 60/minute, RR 16/minute, BP 119/70 mm Hg, pulse oximetry 97% on room air. On exam, General: Well alert, well oriented, not confused, not agitated, not in acute distress, well cooperated during the physical. HEENT: Conjunctive are pink, sclerae clear, no icterus, pupil is equal in both sides, reactive to light, no ear discharge, no pharyngeal erythema or an edema, mouth and lips are moist. Neck: Supple, no JVD, no lymphadenopathy and thyromegaly. Lungs:Equal air entry on both lungs, no additional sounds Heart: S1-S2 regular sinus rhythm and, regular rate, no gallops, no rubs, no murmurs Abdomen: No visible peristalsis, Bowel sounds present on auscultation, soft, slightly tender at the epigastrium, no guarding, no rigidity Extremities: No obvious deformities, no pitting edema bilaterally, capillary refill intact, able to wiggle toes both sides, peripheral pulsations are intact on both sides PASTRY BAKER: No focal neurological deficits, no motor and sensory weakness in all 4 extremities, could move all 4 extremities Musculoskeletal: No joint swelling, deformities, inflammations, and no scoliosis and back tenderness Skin: No active skin lesions and rashes Discharge instructions -immediate return to ER for the severe intolerable progressive abdominal pain, nausea and vomiting, and any other emergency conditions etc. -continue following up with PCP in one week after discharge including proper pain management -follow up with Neurology/psychology for the possible medications adjustment in the setting of hypertriglyceridemia and acute pancreatitis (for example- Lacosamide, lamotrigine and lithium were associated with the rare complications of acute pancreatitis and hypertriglyceridemia) -* MEDICATION COMPLIANCE IS VERY IMPORTANT TO PREVENT HYPERTRIGLYCERIDEMIA INDUCED RECURRENT ACUTE PANCREATITIS* -Heart healthy and carb controlled diet are strongly encouraged with modified lifestyle to lose weight Resident MD attestation: Patient was seen, examined and discussed with attending MD, Dr. Micheal LINDA MD Internal Medicine Resident, PGY3 [facility] *Problems/Diagnosis: (1) Hypertriglyceridemia Status: Chronic (2) Pancreatitis Status: Resolved Total Time Spent on D/C: > 30 Minutes Date of Service: Nov 02, 2024 Billing Provider: PARIS CAO MD Common Visit Codes: 89420-IVW/OBS DISCH DAY >30min CRISTIAN LINDA RES Nov 02, 2024 12:32 PARIS CAO MD Nov 03, 2024 06:27
== END 2024-11-02 13:00 | disposition home or self-care (01) | DRG 440 ==
LOC: ER 00:14 → ED HOLD 04:34 → ORTHO 4S 07:45 → UNDODISIN 11:04 → SUR 3N 15:00
PROVIDERS: ADMIT Internal Medicine Pulmonary Disease; ATTEND Internal Medicine
PROC: BW211ZZ Computerized Tomography (CT Scan) of Abdomen and Pelvis using Low Osmolar Contrast (ICD-10-PCS; principal; 2024-10-31)
DX: K85.90 Acute pancreatitis without necrosis or infection, unspecified (principal); E66.811 Obesity, class 1; Z68.30 Body mass index [BMI] 30.0-30.9, adult; I10 Essential (primary) hypertension; E78.00 Pure hypercholesterolemia, unspecified; E11.9 Type 2 diabetes mellitus without complications; G40.909 Epilepsy, unspecified, not intractable, without status epilepticus; R62.50 Unspecified lack of expected normal physiological development in childhood; E78.1 Pure hyperglyceridemia; F39 Unspecified mood [affective] disorder; F41.9 Anxiety disorder, unspecified; Z90.49 Acquired absence of other specified parts of digestive tract; Z88.8 Allergy status to other drugs, medicaments and biological substances; Z79.899 Other long term (current) drug therapy; Z91.148 Patient's other noncompliance with medication regimen for other reason
CPT/HCPCS: 36415; 74177; 80053; 80061; 82948; 83690; 83735; 84478; 85025; 87081; 99285; G0378; J1650; J1815; J2270; J2405; J7030; J7042; J7120; Q9967

== ENCOUNTER 2025-01-30 17:15 | Emergency (ER) | payer MEDICARE, MEDICAID ==
[~2025-01-30] VITALS: Ht 180.3 cm; Wt 95.5 kg
[~2025-01-30 17:15] MED LIST changes: +ACET-2119 PO; +ATOR-429 PO; -CARI1.5C PO; +CENO200T PO; +CYCL-394 PO; +DICL20GE; -DIVA-112 PO; +FENO48TA10 PO; +HYDR-3965 PO; -HYDR30CR79 TOP; -HYDR50CA5 PO; -LIDO30CR TOP; +LISI30TA4 PO; +LITH450T2 PO; +NICO-630 TD; +PANT-47 PO; +POLY119P2 PO; -PRED10TA PO; +SEMA3TAB4 PO; +SEMA7TAB2 PO
--- NOTE | 2025-01-30 17:32 | Physician Documentation ---
History of Present Illness ~ Chief Complaint: Flank Pain Stated Complaint: ABD PAIN Time Seen by MD: 17:32 Primary Medical Doctor: [facility] 44-year-old male, history of recent pancreatitis, presenting with flank pain that radiates to the lower abdomen The patient presents by EMS with flank pain. No medications given. The patient tells me that his pain has been present for about 2 days. He states it is worse in his right flank, and radiates around to his right groin region. He states that initially he thought it was just a back muscle strain. Today it got significantly worse. Pain is 10/10. He denies any fevers or chills. No vomiting. No dysuria or hematuria. No history of kidney stones. He then tells me he has been on Brohman, but ran out yesterday Per chart review, he does have a history of an appendectomy and cholecystectomy History as above. States he has a meeting with his doctor on the to discussed pain contract. Medication Reconciliation Allergies: Coded Allergies: Inhaled Anesthetics (Halogen Based) (Verified Allergy, Severe, MALIGNANT HYPERTHERMIA, 01/30/25) succinylcholine (Verified Allergy, Severe, MALIGNANT HYPERTHERMIA, 01/30/25) metformin (Unverified Adverse Reaction, Intermediate, N/V, 01/30/25) Scheduled Atorvastatin Calcium* (Lipitor*), 1 TAB PO DAILY, (Reported) Cenobamate (Xcopri), 0.5 TAB PO DAILY, (Reported) Cyclobenzaprine HCl (Cyclobenzaprine HCl), 1 TAB PO HS, (Reported) Divalproex Sodium DR* (Depakote DR*), 2 TAB PO QPM, (Reported) Docusate Sodium (Dulcolax Stool Softener), 1 CAP PO Q12H Fenofibrate Nanocrystallized (Fenofibrate), 48 MG PO DAILY@0830 Gabapentin (Neurontin), 1 CAP PO BID, (Reported) Gemfibrozil (Lopid), 600 MG PO DAILY Hydrocodone Bit/Acetaminophen 5/325 MG (Brohman 5/325 MG), 1 TAB PO DAILY, (Reported) Icosapent Ethyl (Vascepa), 2 CAP PO BID, (Reported) Insulin Glargine,Hum.rec.anlog* (Lantus*), 30 UNITS SQ HS, (Reported) Insulin Lispro (Humalog), 5 UNITS SQ BIDWM, (Reported) Lacosamide (Vimpat), 1 TAB PO Q12H Lamotrigine (LaMICtal tablet), 2 TAB PO BID, (Reported) Lisinopril (Lisinopril), 1 TAB PO DAILY, (Reported) Abeytas Carbonate* (Abeytas Carbonate*), 1 TAB PO DAILY, (Reported) Nicotine 7 MG Patch* (Habitrol 7 MG Patch*), 1 PATCH TD DAILY, (Reported) Nystatin (NYSTOP powder), 1 APPLIC TP BID Pantoprazole Sodium (PROTONIX tablet), 1 TAB PO DAILY, (Reported) Polyethylene Glycol 3350 (Miralax), 17 GM PO DAILY, (Reported) Prazosin HCl (Prazosin HCl), 3 CAP PO HS, (Reported) Semaglutide (Rybelsus), 1 TAB PO QAM, (Reported) Semaglutide (Rybelsus), 1 TAB PO DAILY, (Reported) Valacyclovir HCl (Valacyclovir), 1 TAB PO BID Scheduled PRN Acetaminophen (Tylenol), 2 TAB PO Q4HPRN PRN for pain or fever, (Reported) Nitroglycerin SL* (Nitrostat SL*), 1 TAB SL Q5MIN PRN for Chest pain Q5min PRNx3-call MD, (Reported) Miscellaneous Medications Diclofenac Sodium (Voltaren Arthritis Pain), (Reported) Past Medical History Past Medical History: Seizures, High Cholesterol, Hypertension, Hepatitis C, Diabetes, Arthritis, Chronic Pain, *PSYCH*, Anxiety Past Surgical History: appendectomy, cholecystectomy, orthopedic surgeries Alcohol Use: None Drug Use: none Lives with: Spouse Lives In: Home Occupation: disabled Review of Systems All Other Systems at this time: Reviewed and Negative Constitutional: Denies: fever Gastrointestinal: Reports: abdominal pain, nausea Musculoskeletal: Reports: back pain Physical Exam Vital Signs: Temperature: 98.6, Source: Oral, Heart Rate: 87, Respiratory Rate: 16, BP: 154/107, Pulse Oximetry: 98, Weight: 95.450 Oxygen Flow Rate: 0 Physical Exam General: This is a middle-aged man, sitting calmly in bed, does not appear in distress HEENT: Atraumatic, oropharynx is moist Heart: Regular rate and rhythm, normal-appearing peripheral perfusion Lungs: normal work of breathing, normal oxygen saturation on room air Abdomen: Soft, nondistended, tender to palpation in the right abdomen including the right upper and right lower quadrants, minimal left-sided tenderness Back: He does have tenderness on palpation of the paralumbar muscles in the righ t. He also has positive right CVA tenderness to percussion Neuro: Alert and oriented Psychiatric: Calm and cooperative with exam Progress Results/Orders Results/Orders Medications Received in ER Medications (Trade) Dose Ordered Sig/Khoa Route PRN Reason Start Time Stop Time Status Last Admin Dose Admin (Toradol injection) 15 mg ONCE ONCE IV 01/30/25 17:35 01/30/25 17:36 DC 01/30/25 18:01 15 MG (Zofran 4mg/2ml vial) 4 mg ONCE ONCE IV 01/30/25 17:35 01/30/25 17:36 DC 01/30/25 18:00 4 MG (fentaNYL 0.05 MG/ML syringe) 50 mcg ONCE ONCE IV 01/30/25 17:35 01/30/25 17:36 DC 01/30/25 18:02 50 MCG Sodium Chloride 1,000 ml @ 1,000 mls/hr ONCE ONCE IV 01/30/25 17:35 01/30/25 18:34 DC 01/30/25 18:00 1,000 MLS/HR Vital Signs 01/30/25 01/30/25 01/30/25 01/30/25 17:21 18:01 18:02 18:04 Temp 98.6 Pulse 87 76 Resp 16 15 15 15 B/P (MAP) 154/107 141/95 (110) Pulse Ox 98 95 O2 Flow Rate 0 01/30/25 01/30/25 18:09 18:37 Temp 98.6 Pulse 74 Resp 15 18 B/P (MAP) 141/95 (110) Pulse Ox 97 O2 Flow Rate 0 Laboratory Tests Test 01/30/25 17:33 01/30/25 18:01 Urine Specimen Description Cln catch midstream Urine Color Straw Urine Clarity Clear Urine pH 7.0 Urine Specific Lowes <=1.005 Urine Protein Negative Urine Glucose (UA) Negative Urine Ketones Negative Urine Occult Blood Negative Urine Nitrite Negative Urine Bilirubin Negative Urine Urobilinogen 0.2 Urine Leukocyte Esterase Negative Urine Culture Indicated Not ind Volume Urine Centrifuged 10 ml Urine Comment White Blood Count 5.3 Red Blood Count 4.73 Hemoglobin 15.2 Hematocrit 42.7 Mean Corpuscular Volume 90.4 Mean Corpuscular Hemoglobin 32.1 H Mean Corpuscular Hemoglobin Concent 35.5 Red Cell Distribution Width 13.4 Platelet Count 225 Mean Platelet Volume 9.1 Neutrophils (%) (Auto) 61.3 Lymphocytes (%) (Auto) 28.8 Monocytes (%) (Auto) 7.8 Eosinophils (%) (Auto) 1.5 Basophils (%) (Auto) 0.6 Neutrophils # (Auto) 3.3 Lymphocytes # (Auto) 1.5 Monocytes # (Auto) 0.4 Eosinophils # (Auto) 0.1 Basophils # (Auto) 0.0 CBC Comment Sodium Level 141 Chloride Level 104 Carbon Dioxide Level 28.3 Anion Gap 9 Blood Urea Nitrogen 17 Creatinine 0.94 Estimated GFR/1.73 m2 86 BUN/Creatinine Ratio 18.1 Calcium Level 9.2 Total Bilirubin 0.4 Alkaline Phosphatase 100 Total Protein 8.1 Albumin 4.2 Globulin 3.9 Albumin/Globulin Ratio 1.1 Lipase 44 Chemistry Comments Medical Decision Making Additional information obtaine: old records Findings Reviewed previous hospital records for pancreatitis Patient presented to the emergency room with abdominal pain. Differentials include but are not limited to gastritis cholecystitis pancreatitis diverticulitis small-bowel obstruction colitis therefore emergent labs and imaging indicated. Labs and imaging a relatively reassuring. Some colitis seen on CT scan. No evidence of infection on labs and he had not feel he requires antibiotics I believe symptoms are viral in nature. I will give him small amount of pain medication to hold him over. Diff Dx GI Bleed:Consideration: Include: AE fistula, Angiodysplasia, Bleeding diathesis, Blood loss anemia, Carcinoma, Diverticulosis, Diverticulitis, Esophageal varicies, Esophagitis, Gastritis, Gastroenteritis, Inflammatory BD, Magalis-Falcon syndrome, Meckel's diverticulum, PUD, Other Diff Dx Pain:Considerations: Include: AAA, Angina/AZ, Aortic dissection, Appendicitis, Bowel obstruction, Cholangitis, Cholecystitis, Cholelithasis, Constipation, Diverticular disease, Esophageal rupture, Esophagitis, Gastritis, Gastroenteritis, GI hemorrhage, Hepatitis, Hernia, Inflammatory BD, Ischemic bowel, Mass, Pancreatitis, Porphyria, PUD, Testicular torsion, Trauma, intraabdominal, Urinary obstruction, Urinary tract infection, Urolithiasis, Other Diff Dx N/V/D:Considerations: Include: Appendicitis, Bowel obstruction, Dehydration, DKA, Diarrhea - bacterial, Diarrhea - parasitic, Diarrhea - viral, Diverticulitis, Diverticulosis, Drug toxicity, Electrolyte imbalance, Food poisoning, Gastroenteritis, GE reflux, GI bleed, Hepatitis, Hernia, Hypovolemia, Hypotension, Inflammatory BD, Impaction, Malnutrition, Pancreatitis, PUD, Renal failure, Urinary obstruction, UTI, Urolithiasis, Other Diff Dx Rectal:Considerations: Include: Fissure, Fistula, Foreign body, Impaction, Perirectal abscess, Prostatitis, Rectal prolapse, Subcutaneous abscess, Thrombosed hemorrhoid, Ulcer, UTI, Other Additional Comments The patient presents with flank pain that radiates to his groin, going on for about 2 days. An IV was established and he was given pain and nausea medicine and IV fluids. Labs and urinalysis ordered. CT renal study ordered and pending. The patient was signed out at shift change to the oncoming ER provider. Pending the above testing and treatment. Departure Disposition: HOME / SELF CARE / HOMELESS Impression: Primary Impression: Colitis Condition: Stable Discharge Instructions: Colitis Referrals: NO PRIMARY CARE PROVIDER (PCP) Prescriptions Hydrocodone Bit/Acetaminophen 5/325 MG (Brohman 5/325 MG) 5 Mg/325 Mg Tablet 1 TAB PO Q4-6 hours PRN for pain, #10 TAB Prov: VIN SALDIVAR MD 01/30/25 Signature Scribe Signature: na Attestation: The note accurately reflects work and decisions made by me.Vin Saldivar MD 01/30/25 18:40 na DENILSON SAINI MD Jan 30, 2025 17:32 VIN SALDIVAR MD Jan 30, 2025 18:40
[2025-01-30 17:42] LABS: LEUKOCYTE ESTERASE ,URINE NEGATIVE (Neg); NITRITES, URINE NEGATIVE (Neg); OCCULT BLOOD,URINE NEGATIVE (Neg)
[2025-01-30 17:45] LABS: UA COLLECTION TYPE CLN CATCH MIDSTREAM
[2025-01-30] MEDS: ondansetron/PF 4mg/2ml inj IV ONE (18:00)
[2025-01-30] MEDS: normal saline 1000ml 1,000 ML IV ONE (18:00)
[2025-01-30] MEDS: ketorolac trometh 15mg/ml vial 15 MG/ML ML IV ONE (18:01)
[2025-01-30] MEDS: fentaNYL/PF 50MCG/1 ML 2ML syringe IV ONE (18:02)
[2025-01-30 18:08] LABS: MEAN PLATELET VOLUME 9.1 FL (7.4-10.4); RED CELL DISTRIBUTION WIDTH 13.4 % (11.5-14.5)
--- NOTE | 2025-01-30 18:16 | RADIOLOGY REPORT ---
Exam: CT CT ABDOMEN PELVIS History: Flank pain radiating to the groin, concern for kidney stone Comparison Study: CT CT ABDOMEN PELVIS W/ IV CONTRAST on DOS: 10/31/24, CT CT ABDOMEN PELVIS W/ IV CONTRAST on DOS: 10/25/24, CT CT PELVIS on DOS: 02/14/23 Technique: Multidetector spiral CT of the abdomen was performed from lung bases to pubic symphysis. Imaging was performed without IV contrast. Axial, coronal and sagittal multiplanar reformats were obtained from the axial data set by the technologist. Radiation Dose : 1. Abdomen/Pelvis: CTDIvol 20 mGy, DLP 1099 mGy*cm. Findings: Evaluation of solid organs is limited due to lack of intravenous contrast use. Lung Bases: No acute or significant lung base finding. Normal heart size. No pleural or pericardial effusion. Liver: The liver is normal in size. No focal lesions. Gallbladder and Biliary Tree: Gallbladder is surgically absent. Spleen: Unremarkable Pancreas: The pancreas is grossly normal in appearance. Adrenal Glands: Unremarkable Kidneys: Kidneys are grossly normal without calculi or hydronephrosis. Bladder: Grossly unremarkable for degree of distention. Bowel: The stomach is grossly normal in appearance. Concentric wall thickening throughout the distal colon is suggestive of infectious/inflammatory colitis. The appendix is not visualized; however, no secondary findings of acute appendicitis identified. Ascites: Absent Lymphadenopathy: No mesenteric, retroperitoneal or periportal lymphadenopathy. Abdominal Wall and Mesentery: Small bilateral fat containing inguinal hernias. Vasculature: The visualized abdominal aorta is normal in size and caliber. Evaluation of abdominal and pelvic vessels is limited due to lack of intravenous contrast. Pelvic Organs: Unremarkable Musculoskeletal: No aggressive focal bony lesions, acute fractures or dislocation. IMPRESSION: 1. Concentric wall thickening throughout the distal colon is suggestive of infectious/inflammatory colitis. 2. No renal stones or hydronephrosis. Radiation optimization: All CT scans at this facility use at least one of these dose optimization techniques: automated exposure control mA and/or kV adjustment per patient size (includes targeted exams where dose is matched to clinical indication) or iterative reconstruction.
[2025-01-30 18:25] LABS: CREATININE 0.94 MG/DL (0.60-1.10); TOTAL CARBON DIOXIDE 28.3 MMOL/L (24-32); eCRCL 105 ML/MIN; eGFR 86 ML/MIN
[2025-01-30] MEDS ORDERED: HYDR-3965 PO (18:40)
[2025-01-30 18:54] VITALS: BP 143/99; PULSE 83; RESP 18; TEMP 98.6; O2SAT 97
== END 2025-01-30 18:58 | disposition home or self-care (01) ==
LOC: ER 17:16
DX: K52.9 Noninfective gastroenteritis and colitis, unspecified (principal); F41.9 Anxiety disorder, unspecified; E11.9 Type 2 diabetes mellitus without complications; E78.00 Pure hypercholesterolemia, unspecified; G89.29 Other chronic pain; I10 Essential (primary) hypertension; M19.90 Unspecified osteoarthritis, unspecified site; Z86.19 Personal history of other infectious and parasitic diseases; Z87.19 Personal history of other diseases of the digestive system; Z90.49 Acquired absence of other specified parts of digestive tract; Z88.8 Allergy status to other drugs, medicaments and biological substances; Z79.899 Other long term (current) drug therapy; Z79.4 Long term (current) use of insulin
CPT/HCPCS: 36415; 74176; 80053; 81003; 83690; 85025; 96361; 96374; 96375; 99285; J1885; J2405; J3010; J7030

== ENCOUNTER 2025-02-06 03:30 | Emergency (ER) | payer MEDICARE, MEDICAID ==
[~2025-02-06] VITALS: Ht 172.7 cm; Wt 100.0 kg
[2025-02-06 03:41] VITALS: BP 165/88; PULSE 91; RESP 18; TEMP 98.4; O2SAT 99
== END 2025-02-06 06:46 | disposition left against medical advice (07) ==
LOC: ER 03:30
DX: E16.2 Hypoglycemia, unspecified (principal); Z88.8 Allergy status to other drugs, medicaments and biological substances
CPT/HCPCS: 99281

== ENCOUNTER 2025-02-07 19:59 | Emergency (ER) | payer MEDICARE, MEDICAID ==
[~2025-02-07] VITALS: Ht 180.3 cm; Wt 97.0 kg
--- NOTE | 2025-02-07 21:08 | Physician Documentation ---
History of Present Illness ~ Chief Complaint: Hypoglycemia Stated Complaint: LOW BLOOD SUGAR Time Seen by MD: 21:07 Primary Medical Doctor: MARY ESCOBAR Mode of Arrival: EMS HPI Patient presents to the emergency room for evaluation of low blood sugars. He states that he has been having problems over the past week with low blood sugars. No change of his insulin regimen. He checked in earlier this week for evaluation of low sugars but left before being seen. He states his sugars have only been gone up to 150 in his taking both short and long-acting insulins in his just noticed that they has been crashing. He does endorse losing a proximally 20 lb recently. He denies any cough cold congestion dysuria abdominal pain skin infections or any other infection symptoms. Medication Reconciliation Allergies: Coded Allergies: Inhaled Anesthetics (Halogen Based) (Verified Allergy, Severe, MALIGNANT HYPERTHERMIA, 01/30/25) succinylcholine (Verified Allergy, Severe, MALIGNANT HYPERTHERMIA, 01/30/25) metformin (Unverified Adverse Reaction, Intermediate, N/V, 01/30/25) Scheduled Atorvastatin Calcium* (Lipitor*), 1 TAB PO DAILY, (Reported) Cenobamate (Xcopri), 0.5 TAB PO DAILY, (Reported) Cyclobenzaprine HCl (Cyclobenzaprine HCl), 1 TAB PO HS, (Reported) Divalproex Sodium DR* (Depakote DR*), 2 TAB PO QPM, (Reported) Docusate Sodium (Dulcolax Stool Softener), 1 CAP PO Q12H Fenofibrate Nanocrystallized (Fenofibrate), 48 MG PO DAILY@0830 Gabapentin (Neurontin), 1 CAP PO BID, (Reported) Gemfibrozil (Lopid), 600 MG PO DAILY Hydrocodone Bit/Acetaminophen 5/325 MG (Whitharral 5/325 MG), 1 TAB PO DAILY, (Reported) Icosapent Ethyl (Vascepa), 2 CAP PO BID, (Reported) Insulin Glargine,Hum.rec.anlog* (Lantus*), 30 UNITS SQ HS, (Reported) Insulin Lispro (Humalog), 5 UNITS SQ BIDWM, (Reported) Lacosamide (Vimpat), 1 TAB PO Q12H Lamotrigine (LaMICtal tablet), 2 TAB PO BID, (Reported) Lisinopril (Lisinopril), 1 TAB PO DAILY, (Reported) Newtonia Carbonate* (Newtonia Carbonate*), 1 TAB PO DAILY, (Reported) Nicotine 7 MG Patch* (Habitrol 7 MG Patch*), 1 PATCH TD DAILY, (Reported) Nystatin (NYSTOP powder), 1 APPLIC TP BID Pantoprazole Sodium (PROTONIX tablet), 1 TAB PO DAILY, (Reported) Polyethylene Glycol 3350 (Miralax), 17 GM PO DAILY, (Reported) Prazosin HCl (Prazosin HCl), 3 CAP PO HS, (Reported) Semaglutide (Rybelsus), 1 TAB PO QAM, (Reported) Semaglutide (Rybelsus), 1 TAB PO DAILY, (Reported) Valacyclovir HCl (Valacyclovir), 1 TAB PO BID Scheduled PRN Acetaminophen (Tylenol), 2 TAB PO Q4HPRN PRN for pain or fever, (Reported) Hydrocodone Bit/Acetaminophen 5/325 MG (Whitharral 5/325 MG), 1 TAB PO Q4-6 hours PRN for pain Nitroglycerin SL* (Nitrostat SL*), 1 TAB SL Q5MIN PRN for Chest pain Q5min PRNx3-call MD, (Reported) Miscellaneous Medications Diclofenac Sodium (Voltaren Arthritis Pain), (Reported) Past Medical History Past Medical History: Seizures, High Cholesterol, Hypertension, Hepatitis C, Diabetes, Arthritis, Chronic Pain, *PSYCH*, Anxiety Past Surgical History: appendectomy, cholecystectomy, orthopedic surgeries Alcohol Use: None Drug Use: none Lives with: Spouse Lives In: Home Occupation: disabled Review of Systems ROS All review of systems negative except as per HPI Physical Exam Vital Signs: Temperature: 98.7, Source: Oral, Heart Rate: 86, Respiratory Rate: 16, BP: 150/91, Pulse Oximetry: 96, Weight: 97.000 Oxygen Flow Rate: 0 Physical Exam General: Patient is awake, alert, oriented x4 in no acute distress Head: Normocephalic and atraumatic. Eyes: Conjunctival normal. EOMI. PERRL. ENT: Mucous membranes moist. Neck: Supple, trachea is midline. Chest: Clear to auscultation bilaterally without rales, rhonchi, or wheezes. There is no accessory muscle use or retractions. Cardiac: RRR without murmurs, gallops, or rubs. Abd: Soft, nondistended, nontender, with normoactive bowel sounds. No guarding, rebound, or rigidity. Extremities: Normal strength. Normal range of motion. No deformities or edema. . Progress Results/Orders Results/Orders Orders - VIN SALDIVAR MD Accucheck (02/07/25 ) Completed Orders - VIN SALDIVAR MD Ua W/Microscopic, Cult If Ind (02/07/25 21:50) Vital Signs 02/07/25 02/07/25 02/07/25 20:03 20:17 23:07 Temp 98.7 99.2 Pulse 86 97 Resp 18 16 20 B/P (MAP) 150/91 154/88 (110) Pulse Ox 96 97 O2 Flow Rate 0 Laboratory Tests Test 02/07/25 20:13 02/07/25 21:50 Glucometer 149 H Urine Specimen Description Non-specified Urine Color Yellow Urine Clarity Clear Urine pH 6.0 Urine Specific [place] 1.025 Urine Protein Trace Urine Glucose (UA) Negative Urine Ketones 15 H Urine Occult Blood Negative Urine Nitrite Negative Urine Bilirubin Negative Urine Urobilinogen 0.2 Urine Leukocyte Esterase Negative Urine RBC None seen Urine WBC 0-4 Urine Squamous Epithelial Cells None seen Urine Bacteria Few Urine Culture Indicated Not ind Volume Urine Centrifuged 10 ml Urine Comment EKG/XRAY/CT/US/VASC/MRI EKG : Additional Comment EKG interpreted by myself shows time of 2005, rate 86, sinus rhythm, normal axis, no ST changes Medical Decision Making Additional information obtaine: other Findings Patient presents to the emergency room with chief complaint of hypoglycemia. Differentials include but are not limited to infectious process, medication errors, suicidal attempt. Patient denies any suicidal ideation. Urinalysis is clear. No evidence of infection on physical exam. That has patient reports weight loss with increasing hypoglycemia he is likely suffering from hypoglycemic episodes from this. He has been instructed to stop his insulin and follow up with his doctor. Differential Dx:Considerations: Include: CVA, Encephalopathy, Hepatic disease, Hypoglycemia, Seizure, Sepsis, Alcohol induced, Drug overdose induced, Decr. caitlin. intake induced, Insulin induced, oral hypoglycemic induced, Other Departure Disposition: 01 HOME / SELF CARE / HOMELESS Impression: Primary Impression: Hypoglycemia Condition: Stable Discharge Instructions: Hypoglycemia, Koxd-ne-Ulnh Additional Instructions: Stop your insulin unless blood sugars over 300. Follow up with your doctor as soon as possible for adjustment of your insulin. Referrals: NO PRIMARY CARE PROVIDER (PCP) Signature Scribe Signature: No scribe Attestation: The note accurately reflects work and decisions made by me.Vin Saldivar MD 02/07/25 23:11 VIN SALDIVAR MD Feb 07, 2025 21:08
[2025-02-07 22:03] LABS: LEUKOCYTE ESTERASE ,URINE NEGATIVE (Neg); NITRITES, URINE NEGATIVE (Neg); OCCULT BLOOD,URINE NEGATIVE (Neg)
[2025-02-07 22:07] LABS: UA COLLECTION TYPE NON-SPECIFIED
[2025-02-07 22:10] LABS: SQUAMOUS EPITHELIAL CELL,UR NONE SEEN /LPF (FEW)
[2025-02-07 23:07] VITALS: BP_DIAS 88
[2025-02-07 23:51] VITALS: BP_SYST 140; PULSE 82; RESP 19; TEMP 99.2; O2SAT 96
--- NOTE | 2025-02-08 04:52 | ELECTROCARDIOGRAPH REPORT ---
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 ANAND Crowe Measurements Intervals [place] Rate: 86 P: 58 WA: 147 QRS: 77 QRSD: 105 T: 88 QT: 384 QTc: 460 Interpretive Statements Sinus rhythm Probable left ventricular hypertrophy Anterior ST elevation, probably due to LVH Electronically Signed On 02-08-2025 17:34:[address] ANAND Crowe Please click the below link to view image of tracing.
== END 2025-02-07 23:55 | disposition home or self-care (01) ==
LOC: ER 19:59
DX: E11.649 Type 2 diabetes mellitus with hypoglycemia without coma (principal); E78.00 Pure hypercholesterolemia, unspecified; G89.29 Other chronic pain; F41.9 Anxiety disorder, unspecified; I10 Essential (primary) hypertension; M19.90 Unspecified osteoarthritis, unspecified site; Z88.8 Allergy status to other drugs, medicaments and biological substances; Z86.19 Personal history of other infectious and parasitic diseases; Z90.49 Acquired absence of other specified parts of digestive tract; Z79.899 Other long term (current) drug therapy
CPT/HCPCS: 81001; 82948; 93005; 99283; 99284